=== PATIENT | male | born 1995 | race Caucasian/White ===

== ENCOUNTER 2018-08-27 16:20 | Observation (INO) ==
[2018-08-27] MEDS ORDERED: Sod Chloride 0.9% Inj 1,000 ML IV.SIG ONE (16:37)
--- NOTE | 2018-08-27 16:44 | ED ---
HPI General Chief Complaint: Overdose Stated Complaint: Poss OD Time Seen by Provider: 08/27/18 16:29 History of Present Illness HPI Narrative: Patient is a young male, was found intoxicated, unresponsive, he regained responsiveness after Narcan was given to him. As per patient he was using heroin denies any chills. He has history of diabetes insulin-dependent. Initial blood sugar is over than 300. Patient is intoxicated, answering questions, difficult to understand his speech. Patient complain of neck pain and headache has abrasion over his face most likely a day or 2 old. She denies suicidal ideations. Related Data Home Medications Medication Instructions Recorded Confirmed clonazepam [Klonopin] 2 mg PO TID 08/27/18 08/27/18 gabapentin 800 mg PO TID 08/27/18 08/27/18 insulin aspart U-100 [Novolog 8 unit SUBCUT DAILY 08/27/18 08/27/18 U-100 Insulin aspart] insulin glargine [Lantus U-100 30 unit SUBCUT DAILY 08/27/18 08/27/18 Insulin] Allergies Allergy/AdvReac Type Severity Reaction Status Date / Time No Known Allergies Allergy Verified 08/27/18 16:37 Review of Systems ROS: all other systems reviewed are negative Psychiatric Comments: Intoxicated poor historian. COUNTS INCLUDE 234 BEDS AT THE [facility] Social History Social History Substance History: Active Abuse Second Hand Smoke Exposure: Yes Smoking Status: Current every day smoker Tobacco Type: Cigarettes How Often Do You Have a Drink Containing Alcohol: 4 or more times a week Recent Travel in [facility] within the Last 8 Weeks: No Recent Out of Country Travel within the Last 8 Weeks: No Substance Abuse Detail Heroin: Substance Use Status: Early Remission Route Used Substance Abuse: Intravenously Immunization History Tetanus Immunization: Unable to Assess Exam Narrative Exam Narrative: GENERAL: Patient is a young male, unknown name and age at this time. SKIN: Focused skin assessment warm/dry. HEAD: Normocephalic. EYES: Pupils equal and round. No scleral icterus. No injection or drainage. ENT: No nasal bleeding or discharge. Mucous membranes pink and moist. NECK: Trachea midline. No JVD. CARDIOVASCULAR: Regular rate and rhythm. No murmur appreciated. RESPIRATORY: No accessory muscle use. Mild rhonchi on the right, minimally decreased breath sounds on left. GASTROINTESTINAL: Abdomen soft, non-tender, nondistended. Hepatic and splenic margins not palpable. MUSCULOSKELETAL: No obvious deformities. No clubbing. No cyanosis. No edema. NEUROLOGICAL: Awake and alert. No obvious cranial nerve deficits. Motor grossly within normal limits. Normal speech. PSYCHIATRIC: Appropriate mood and affect; insight and judgment normal. Course Initial Documented Vital Signs Pulse Rate 128 H 08/27/18 16:25 Respiratory Rate 21 08/27/18 16:25 Blood Pressure 128/67 08/27/18 16:25 Pulse Oximetry 85 L 08/27/18 16:25 Last Documented Vital Signs Temperature 98.1 F 08/27/18 23:42 Pulse Rate 114 H 08/28/18 00:00 Respiratory Rate 16 08/27/18 23:42 Blood Pressure 113/57 L 08/27/18 23:42 Pulse Oximetry 92 L 08/27/18 23:42 Sign Out Sign Out Data: Patient Sign Out occurred on 08/27/18 at 19:12. Patient's care was discussed, and care was transferred from Mendel Donaldson DO to Karsten Barbosa MD. Sign Out Comment: Brought to emergency room intoxicated, complaining about breathing, with blood sugar 348, labs and CAT scan reports pending. Case will be endorsed to oncoming physician. Last updated by Mendel Donaldson DO at 08/27/18 18:50 Post-Handoff Eval: This is a reported male in his 20s was brought in via EMS with altered mentation. The patient was reportedly intoxicated and responded to Narcan. According to the nurses working tonight, he was seen earlier this morning as well. The patient is a type I diabetic. His blood sugar was noted to be in the 300s. His beta hydroxybutyrate was also elevated. The patient is extremely nauseous. He has been given 5 units of regular insulin per the physician who signed out the patient to me. He is also been given IV fluids. He will be given a further 1 L of normal saline. [facility]. Patient will need to be admitted for blood sugar control and observation given his his second visit in 2 days. We are still currently awaiting a toxicology screen. CT brain and cervical spine were negative for acute process. The patient had leukocytosis on his blood work and the physician who I replace it started him on vancomycin. There is no obvious source of an infection at this point. The patient reportedly was intoxicated earlier this morning with his previous visit. He will be admitted to the [facility] hospitalist service. Case was discussed with Dr. Paredes. He will be placed under observation. Medical Decision Making MDM Narrative Medical decision making narrative: Blood work, urine analysis, CAT scan of the head and neck ordered, chest x-ray ordered. IV fluids, insulin given. Reevaluation is pending. Patient was signed out to oncoming physician for further evaluation and treatment. Medical Screen Exam Complete: Yes Emergency Medical Condition: Yes Differential Diagnosis Differential Diagnosis: Multiple drugs overdose prolonged suicidal ideations rule out DKA rule out intracranial hemorrhage. Lab Data Result diagrams: 08/27/18 17:10 08/27/18 17:10 Lab Results 08/27/18 08/27/18 08/27/18 Range/Units 16:34 17:10 17:10 WBC 19.6 H (4.0-11.0) th/mm3 RBC 4.15 L (4.50-5.90) mil/mm3 Hgb 13.2 (13.0-17.0) gm/dL Hct 39.3 (39.0-51.0) % MCV 94.7 (80.0-100.0) fL MCH 31.7 (27.0-34.0) pg MCHC 33.5 (32.0-36.0) % RDW 13.0 (11.6-17.2) % Plt Count 298 (150-450) th/mm3 MPV 8.0 (7.0-11.0) fL Neut % (Auto) 79.2 H (16.0-70.0) % Lymph % (Auto) 10.9 (9.0-44.0) % Foard % (Auto) 9.4 H (0.0-8.0) % Eos % (Auto) 0.1 (0.0-4.0) % Baso % (Auto) 0.4 (0.0-2.0) % Neut # (Auto) 15.5 H (1.8-7.7) th/mm3 Lymph # (Auto) 2.1 (1.0-4.8) th/mm3 Foard # (Auto) 1.8 H (0.0-0.9) th/mm3 Eos # (Auto) 0.0 (0.0-0.4) th/mm3 Baso # (Auto) 0.1 (0.0-0.2) th/mm3 WBC Differential . Differential Comment Auto diff final Puncture Site Patient Temperature O2 Saturation (90-100) % ABG pH (7.380-7.420) ABG pCO2 (38-42) mmHg ABG pO2 (61-120) mmHg ABG HCO3 (22-26) mmol/L ABG O2 Content (12.0-20.0) Vol % ABG Base Excess (-2-2) mmol/L ABG Methemoglobin (0-2) % Hussein Test Hemoglobin (12.0-16.0) G/DL Carboxyhemoglobin (0-4) % O2 Delivery Device Liter Flow L/M Critical Value Sodium 139 (136-145) meq/L Potassium 3.7 (3.5-5.1) meq/L Chloride 107 (98-107) meq/L Carbon Dioxide 22.5 (21.0-32.0) meq/L Anion Gap 10 (5-15) meq/L BUN 11 (7-18) mg/dL Creatinine 1.21 (0.60-1.30) mg/dL Estimated GFR 52 L (>89) mL/min POC Glucose 348 H (68-110) mg/dl Random Glucose 338 H (74-106) mg/dL Osmolality 309 H (275-295) mosm/kg Lactic Acid (0.4-2.0) mmol/L Calcium 7.9 L (8.5-10.1) mg/dL Total Bilirubin 0.9 (0.2-1.0) mg/dL AST 28 (15-37) U/L ALT 23 (12-78) U/L Alkaline Phosphatase 87 (45-117) U/L Total Protein 6.8 (6.4-8.2) g/dL Albumin 4.0 (3.4-5.0) g/dL Beta-Hydroxybutyric Acd (0.00-0.39) mmol/L Urine Color (Yellw/Straw) Urine Clarity (Clear) Urine pH (5.0-8.5) Ur Specific [place] (1.002-1.035) Urine Protein (Neg-Trace) mg/dL Urine Glucose (UA) (Negative) mg/dL Urine Ketones (Negative) mg/dL Urine Occult Blood (Negative) Urine Nitrate (Negative) Urine Bilirubin (Negative) Urine Urobilinogen (Less than 2) mg/dL Ur Leukocyte Esterase (Negative) Urine RBC (0-3) /hpf Ur Squamous Epith Cells (0-5) /hpf Urine Mucus (Occasional) /lpf Ur Microscopic Review Urine Opiates Screen (Neg) Ur Barbiturates Screen (Neg) Ur Amphetamines Screen (Neg) U Benzodiazepines Scrn (Neg) Urine Cocaine Screen (Neg) U Cannabinoids Screen (Neg) Serum Alcohol Less than 3 (0-5) mg/dL 08/27/18 08/27/18 08/27/18 Range/Units 17:10 17:10 19:10 WBC (4.0-11.0) th/mm3 RBC (4.50-5.90) mil/mm3 Hgb (13.0-17.0) gm/dL Hct (39.0-51.0) % MCV (80.0-100.0) fL MCH (27.0-34.0) pg MCHC (32.0-36.0) % RDW (11.6-17.2) % Plt Count (150-450) th/mm3 MPV (7.0-11.0) fL Neut % (Auto) (16.0-70.0) % Lymph % (Auto) (9.0-44.0) % Foard % (Auto) (0.0-8.0) % Eos % (Auto) (0.0-4.0) % Baso % (Auto) (0.0-2.0) % Neut # (Auto) (1.8-7.7) th/mm3 Lymph # (Auto) (1.0-4.8) th/mm3 Foard # (Auto) (0.0-0.9) th/mm3 Eos # (Auto) (0.0-0.4) th/mm3 Baso # (Auto) (0.0-0.2) th/mm3 WBC Differential Differential Comment Puncture Site Left radial Patient Temperature 98.6 O2 Saturation 87 L* (90-100) % ABG pH 7.28 L* (7.380-7.420) ABG pCO2 51 H* (38-42) mmHg ABG pO2 65 (61-120) mmHg ABG HCO3 23 (22-26) mmol/L ABG O2 Content 14.6 (12.0-20.0) Vol % ABG Base Excess -2.6 L (-2-2) mmol/L ABG Methemoglobin 0.5 (0-2) % Hussein Test Y Hemoglobin 11.9 L (12.0-16.0) G/DL Carboxyhemoglobin 3.1 (0-4) % O2 Delivery Device Nasal cannula Liter Flow 4.00 L/M Critical Value Yes Sodium (136-145) meq/L Potassium (3.5-5.1) meq/L Chloride (98-107) meq/L Carbon Dioxide (21.0-32.0) meq/L Anion Gap (5-15) meq/L BUN (7-18) mg/dL Creatinine (0.60-1.30) mg/dL Estimated GFR (>89) mL/min POC Glucose (68-110) mg/dl Random Glucose (74-106) mg/dL Osmolality (275-295) mosm/kg Lactic Acid 1.6 (0.4-2.0) mmol/L Calcium (8.5-10.1) mg/dL Total Bilirubin (0.2-1.0) mg/dL AST (15-37) U/L ALT (12-78) U/L Alkaline Phosphatase (45-117) U/L Total Protein (6.4-8.2) g/dL Albumin (3.4-5.0) g/dL Beta-Hydroxybutyric Acd 0.72 H (0.00-0.39) mmol/L Urine Color (Yellw/Straw) Urine Clarity (Clear) Urine pH (5.0-8.5) Ur Specific [place] (1.002-1.035) Urine Protein (Neg-Trace) mg/dL Urine Glucose (UA) (Negative) mg/dL Urine Ketones (Negative) mg/dL Urine Occult Blood (Negative) Urine Nitrate (Negative) Urine Bilirubin (Negative) Urine Urobilinogen (Less than 2) mg/dL Ur Leukocyte Esterase (Negative) Urine RBC (0-3) /hpf Ur Squamous Epith Cells (0-5) /hpf Urine Mucus (Occasional) /lpf Ur Microscopic Review Urine Opiates Screen (Neg) Ur Barbiturates Screen (Neg) Ur Amphetamines Screen (Neg) U Benzodiazepines Scrn (Neg) Urine Cocaine Screen (Neg) U Cannabinoids Screen (Neg) Serum Alcohol (0-5) mg/dL 08/27/18 08/27/18 08/27/18 Range/Units 20:41 21:35 21:35 WBC (4.0-11.0) th/mm3 RBC (4.50-5.90) mil/mm3 Hgb (13.0-17.0) gm/dL Hct (39.0-51.0) % MCV (80.0-100.0) fL MCH (27.0-34.0) pg MCHC (32.0-36.0) % RDW (11.6-17.2) % Plt Count (150-450) th/mm3 MPV (7.0-11.0) fL Neut % (Auto) (16.0-70.0) % Lymph % (Auto) (9.0-44.0) % Foard % (Auto) (0.0-8.0) % Eos % (Auto) (0.0-4.0) % Baso % (Auto) (0.0-2.0) % Neut # (Auto) (1.8-7.7) th/mm3 Lymph # (Auto) (1.0-4.8) th/mm3 Foard # (Auto) (0.0-0.9) th/mm3 Eos # (Auto) (0.0-0.4) th/mm3 Baso # (Auto) (0.0-0.2) th/mm3 WBC Differential Differential Comment Puncture Site Patient Temperature O2 Saturation (90-100) % ABG pH (7.380-7.420) ABG pCO2 (38-42) mmHg ABG pO2 (61-120) mmHg ABG HCO3 (22-26) mmol/L ABG O2 Content (12.0-20.0) Vol % ABG Base Excess (-2-2) mmol/L ABG Methemoglobin (0-2) % Hussein Test Hemoglobin (12.0-16.0) G/DL Carboxyhemoglobin (0-4) % O2 Delivery Device Liter Flow L/M Critical Value Sodium (136-145) meq/L Potassium (3.5-5.1) meq/L Chloride (98-107) meq/L Carbon Dioxide (21.0-32.0) meq/L Anion Gap (5-15) meq/L BUN (7-18) mg/dL Creatinine (0.60-1.30) mg/dL Estimated GFR (>89) mL/min POC Glucose 266 H (68-110) mg/dl Random Glucose (74-106) mg/dL Osmolality (275-295) mosm/kg Lactic Acid (0.4-2.0) mmol/L Calcium (8.5-10.1) mg/dL Total Bilirubin (0.2-1.0) mg/dL AST (15-37) U/L ALT (12-78) U/L Alkaline Phosphatase (45-117) U/L Total Protein (6.4-8.2) g/dL Albumin (3.4-5.0) g/dL Beta-Hydroxybutyric Acd (0.00-0.39) mmol/L Urine Color Straw (Yellw/Straw) Urine Clarity Clear (Clear) Urine pH 5.0 (5.0-8.5) Ur Specific [place] 1.010 (1.002-1.035) Urine Protein Negative (Neg-Trace) mg/dL Urine Glucose (UA) 500 or greater (Negative) mg/dL Urine Ketones 20 (Negative) mg/dL Urine Occult Blood Negative (Negative) Urine Nitrate Negative (Negative) Urine Bilirubin Negative (Negative) Urine Urobilinogen Less than 2 (Less than 2) mg/dL Ur Leukocyte Esterase Negative (Negative) Urine RBC Less than 1 (0-3) /hpf Ur Squamous Epith Cells <1 (0-5) /hpf Urine Mucus Few H (Occasional) /lpf Ur Microscopic Review Not Reportable Urine Opiates Screen Pos H (Neg) Ur Barbiturates Screen Neg (Neg) Ur Amphetamines Screen Neg (Neg) U Benzodiazepines Scrn Neg (Neg) Urine Cocaine Screen Pos H (Neg) U Cannabinoids Screen Neg (Neg) Serum Alcohol (0-5) mg/dL 08/27/18 08/28/18 Range/Units 22:23 00:16 WBC (4.0-11.0) th/mm3 RBC (4.50-5.90) mil/mm3 Hgb (13.0-17.0) gm/dL Hct (39.0-51.0) % MCV (80.0-100.0) fL MCH (27.0-34.0) pg MCHC (32.0-36.0) % RDW (11.6-17.2) % Plt Count (150-450) th/mm3 MPV (7.0-11.0) fL Neut % (Auto) (16.0-70.0) % Lymph % (Auto) (9.0-44.0) % Foard % (Auto) (0.0-8.0) % Eos % (Auto) (0.0-4.0) % Baso % (Auto) (0.0-2.0) % Neut # (Auto) (1.8-7.7) th/mm3 Lymph # (Auto) (1.0-4.8) th/mm3 Foard # (Auto) (0.0-0.9) th/mm3 Eos # (Auto) (0.0-0.4) th/mm3 Baso # (Auto) (0.0-0.2) th/mm3 WBC Differential Differential Comment Puncture Site Patient Temperature O2 Saturation (90-100) % ABG pH (7.380-7.420) ABG pCO2 (38-42) mmHg ABG pO2 (61-120) mmHg ABG HCO3 (22-26) mmol/L ABG O2 Content (12.0-20.0) Vol % ABG Base Excess (-2-2) mmol/L ABG Methemoglobin (0-2) % Hussein Test Hemoglobin (12.0-16.0) G/DL Carboxyhemoglobin (0-4) % O2 Delivery Device Liter Flow L/M Critical Value Sodium (136-145) meq/L Potassium (3.5-5.1) meq/L Chloride (98-107) meq/L Carbon Dioxide (21.0-32.0) meq/L Anion Gap (5-15) meq/L BUN (7-18) mg/dL Creatinine (0.60-1.30) mg/dL Estimated GFR (>89) mL/min POC Glucose 213 H 224 H (68-110) mg/dl Random Glucose (74-106) mg/dL Osmolality (275-295) mosm/kg Lactic Acid (0.4-2.0) mmol/L Calcium (8.5-10.1) mg/dL Total Bilirubin (0.2-1.0) mg/dL AST (15-37) U/L ALT (12-78) U/L Alkaline Phosphatase (45-117) U/L Total Protein (6.4-8.2) g/dL Albumin (3.4-5.0) g/dL Beta-Hydroxybutyric Acd (0.00-0.39) mmol/L Urine Color (Yellw/Straw) Urine Clarity (Clear) Urine pH (5.0-8.5) Ur Specific [place] (1.002-1.035) Urine Protein (Neg-Trace) mg/dL Urine Glucose (UA) (Negative) mg/dL Urine Ketones (Negative) mg/dL Urine Occult Blood (Negative) Urine Nitrate (Negative) Urine Bilirubin (Negative) Urine Urobilinogen (Less than 2) mg/dL Ur Leukocyte Esterase (Negative) Urine RBC (0-3) /hpf Ur Squamous Epith Cells (0-5) /hpf Urine Mucus (Occasional) /lpf Ur Microscopic Review Urine Opiates Screen (Neg) Ur Barbiturates Screen (Neg) Ur Amphetamines Screen (Neg) U Benzodiazepines Scrn (Neg) Urine Cocaine Screen (Neg) U Cannabinoids Screen (Neg) Serum Alcohol (0-5) mg/dL Imaging Data Radiologist's impression: Chest X-Ray 08/27/18 16:37 CONCLUSION: No definite acute abnormality is seen. Cervical Spine CT 08/27/18 16:40 CONCLUSION: Negative study. Cervical spine is intact. Head CT 08/27/18 16:40 CONCLUSION: No acute intracranial abnormality demonstrated. . Discharge Plan Discharge Disposition Patient Disposition: ED Admit(ED Internal Use Only) Discharge Order Discharge Orders: ED Use Only Admit Order (Routine); Ordered 08/27/18 Ordered By: Karsten Barbosa Discharge Details Diagnosis: DKA, type 1, Altered mental status, unspecified, Dehydration, Substance abuse Physicians Team ED Provider: Karsten Barbosa Primary Care Provider: UNKNOWN, Attending Provider: Alex Garcia Status ED Status: Left Department Discharge Information Discharge Date/Time: 08/27/18 22:45
--- NOTE | 2018-08-27 16:56 | XR ---
EXAM DATE: 08/27/2018 4:50 PM EST AGE/SEX: 89 years / Male INDICATIONS: Congestion CLINICAL DATA: This is the patient's initial encounter. Patient reports that signs and symptoms have been present for 1 day and indicates a pain score of Nonresponsive. MEDICAL/SURGICAL HISTORY: Non-responsive. Non-responsive. COMPARISON: No prior exams available for comparison. FINDINGS: A single AP view of the chest demonstrates the lungs to be symmetrically aerated without evidence of mass, infiltrate or effusion. The cardiomediastinal contours are unremarkable. Osseous structures a re intact. There are 2 focal densities projecting over the medial left upper quadrant. These are of uncertain etiology. It could be something on the patient. CONCLUSION: No definite acute abnormality is seen. Electronically signed by: Silver Luu MD 08/27/2018 4:55 PM EST
[2018-08-27 17:16] LABS: ABG Base Excess -2.6 mmol/L (-2-2); ABG PCO2 51 mmHg (38-42); ABG PO2 65 mmHg (61-120)
[2018-08-27 17:48] LABS: Baso # (Auto) 0.1 th/mm3 (0.0-0.2); Baso % (Auto) 0.4 % (0.0-2.0); Eos % (Auto) 0.1 % (0.0-4.0); Hematocrit 39.3 % (39.0-51.0); Hemoglobin 13.2 gm/dL (13.0-17.0); Lymph # (Auto) 2.1 th/mm3 (1.0-4.8); Lymph % (Auto) 10.9 % (9.0-44.0); Mean Corpuscular HGB Conc 33.5 % (32.0-36.0); Mean Corpuscular Hemoglobin 31.7 pg (27.0-34.0); Mean Corpuscular Volume 94.7 fL (80.0-100.0); Mono # (Auto) 1.8 th/mm3 (0.0-0.9); Mono % (Auto) 9.4 % (0.0-8.0); Neut # (Auto) 15.5 th/mm3 (1.8-7.7); Neut % (Auto) 79.2 % (16.0-70.0); Platelet Count 298 th/mm3 (150-450); Red Blood Count 4.15 mil/mm3 (4.50-5.90); White Blood Count 19.6 th/mm3 (4.0-11.0)
[2018-08-27] MEDS: Sod Chloride 0.9% Inj 1,000 ML IV.SIG SCH ×2 (17:48→20:08)
[2018-08-27 18:08] LABS: Anion Gap 10 meq/L (5-15); Blood Urea Nitrogen 11 mg/dL (7-18); Calcium 7.9 mg/dL (8.5-10.1); Carbon Dioxide 22.5 meq/L (21.0-32.0); Chloride 107 meq/L (98-107); Glomerular Filtration Rate 52 mL/min (>89); Glucose,Random 338 mg/dL (74-106); Potassium 3.7 meq/L (3.5-5.1); Sodium 139 meq/L (136-145)
[2018-08-27 18:10] LABS: Alanine Aminotransferase 23 U/L (12-78); Aspartate Aminotransferase 28 U/L (15-37)
[2018-08-27 18:12] LABS: Alkaline Phosphatase 87 U/L (45-117); Total Protein 6.8 g/dL (6.4-8.2)
[2018-08-27] MEDS ORDERED: Piperacil/Tazo 3.375 GM Premix 50 ML IV.SIG ONE (18:29)
[2018-08-27] MEDS ORDERED: Vancomycin Inj 1,000 MG in Sodium Chlor 0.9% Inj 250 ML IV.SIG ONE (18:29)
--- NOTE | 2018-08-27 18:51 | CT ---
EXAM DATE: 08/27/2018 6:39 PM EST AGE/SEX: 89 years / Male INDICATIONS: Found unresponsive. Possible heroin overdose. CLINICAL DATA: This is the patient's initial encounter. Patient reports that signs and symptoms have been present for 1 day and indicates a pain score of Nonresponsive. MEDICAL/SURGICAL HISTORY: Non-responsive. Non-responsive. RADIATION DOSE: 38.61 CTDI (mGy) COMPARISON: No prior exams available for comparison. TECHNIQUE: CT of the head without contrast. Using automated exposure control and adjustment of the mA and/or kV according to patient size, radiation dose was kept as low as reasonably achievable to ob tain optimal diagnostic quality images. DICOM format image data is available electronically for revi ew and comparison. FINDINGS: Cerebrum: The ventricles are normal for age. No evidence of midline shift, mass lesion, hemorrhage or acute infarction. No extraaxial fluid collections are seen. Posterior Fossa: The cerebellum and brainstem are intact. The 4th ventricle is midline. The cerebe llopontine angle is unremarkable. Extracranial: The visualized portion of the orbits is intact. Skull: The calvaria is intact. No evidence of skull fracture. CONCLUSION: No acute intracranial abnormality demonstrated. . Electronically signed by: Silver Carpenter MD 08/27/2018 6:49 PM EST
--- NOTE | 2018-08-27 18:53 | CT ---
EXAM DATE: 08/27/2018 6:42 PM EST AGE/SEX: 89 years / Male INDICATIONS: Found unresponsive. Possible heroin overdose. CLINICAL DATA: This is the patient's initial encounter. Patient reports that signs and symptoms have been present for 1 day and indicates a pain score of Nonresponsive. MEDICAL/SURGICAL HISTORY: Non-responsive. Non-responsive. RADIATION DOSE: 19.37 CTDI (mGy) COMPARISON: No prior exams available for comparison. TECHNIQUE: Contiguous axial images were obtained using helical multirow detector technique. The vol umetric data was post-processed with multiplanar reconstruction in oblique axial, sagittal, and coron al planes. Using automated exposure control and adjustment of the mA and/or kV according to patient s ize, radiation dose was kept as low as reasonably achievable to obtain optimal diagnostic quality lacho ges. DICOM format image data is available electronically for review and comparison. FINDINGS: Vertebrae: Normal vertebral body height. Alignment: Normal. No subluxation. C2-3: The bony spinal canal is normal in size. No evidence of disc bulge or herniation. The neural foramina are bilaterally patent. C3-4: The bony spinal canal is normal in size. No evidence of disc bulge or herniation. The neural foramina are bilaterally patent. C4-5: The bony spinal canal is normal in size. No evidence of disc bulge or herniation. The neural foramina are bilaterally patent. C5-6: The bony spinal canal is normal in size. No evidence of disc bulge or herniation. The neural foramina are bilaterally patent. C6-7: The bony spinal canal is normal in size. No evidence of disc bulge or herniation. The neural foramina are bilaterally patent. C7-T1: The bony spinal canal is normal in size. No evidence of disc bulge or herniation. The neura l foramina are bilaterally patent. CONCLUSION: Negative study. Cervical spine is intact. Electronically signed by: Silver Carpenter MD 08/27/2018 6:51 PM EST
[2018-08-27] MEDS ORDERED: Sod Chloride 0.9% Inj 1,000 ML IV.SIG SCH (19:30)
[2018-08-27 21:12] VITALS: RESP 16
[2018-08-27 21:52] LABS: Bilirubin,Urine Negative (Negative); Clarity,Urine Clear (Clear); Color,Urine Straw (Yellw/Straw); Glucose,Urine (UA) 500 or Greater mg/dL (Negative); Leukocyte Esterase,Urine Negative (Negative); Mucus,Urine Few /lpf (Occasional); Nitrite,Urine Negative (Negative); Squamous Epithelial Cell,Urine <1 /hpf (0-5)
[2018-08-27 21:57] LABS: Amphetamine Screen,Urine Neg (Neg); Barbiturate Screen,Urine Neg (Neg); Cannabinoid Screen,Urine Neg (Neg); Cocaine Screen,Urine Pos (Neg)
[2018-08-27 22:00] LABS: Opiate Screen,Urine Pos (Neg)
[2018-08-27] MEDS ORDERED: Acetaminophen 325 MG Tablet PO PRN (22:03)
[2018-08-27] MEDS ORDERED: Dextrose 50% in Water 50 ML Vial IV.PUSH PRN (22:06)
[2018-08-27] MEDS ORDERED: Haloperidol Inj 5 MG/ML Ampul IV.PUSH PRN (22:09)
[2018-08-27] MEDS ORDERED: LORazepam 1 MG Tablet PO PRN (22:09)
[2018-08-27] MEDS ORDERED: Sod Chloride 0.9% Inj 1,000 ML IV.CONT SCH (22:15)
--- NOTE | 2018-08-27 22:27 | P.HP ---
History of Present Illness Service: [facility]CP-hospitalist Primary Care Physician: UNKNOWN Chief Complaint: mental status changes History of Present Illness: 23 y/o white male who presents back to [facility] emergency room after being seen earlier today for intoxication actually came back with mental status changes responds to deep stimuli. Patient carries a long history of substance of abuse since the age of 19 polypharmacy and does carry history of diabetes was in the hospital in July for sepsis believed to be related to aspiration pneumonia, was also seen by psychiatry on previous admission and transferred to their service. Unsure as to the course when he was in their service .No history can be obtained from the patient at this time, workup in the emergency room blood sugar was approximately 300 white count of 19,000 toxicology shows positive cocaine positive opiates in his system, but unlike his last presentation of his blood pressure is stable and vital signs more or less are stable patient received insulin with fluid will continue IV fluid tonight recheck his sugars with Accu-Cheks and use high coverage NovoLog insulin when he is more alert he can go back on his regular doses consistent with mild DKA which I believe will reverse itself which is some IV fluids and insulin. Once patient is more alert may need to have psychiatry see him again, will place in [facility] protocol. - Diagnosis (1) Altered mental status, unspecified (2) Dehydration (3) Substance abuse (4) Substance abuse (5) DKA, type 1 (6) Leukocytosis Review of Systems unobtainable due to mental status PMFSH - History History Provided By: Patient - Medical History Medical History: Medical History (Last Reviewed 08/27/18 @ 22:21 by Cornell Paredes MD) Diabetes Surgical history unknown - Tobacco History Tobacco Use In Past 30 Days: Yes Smoking Status: Current every day smoker Tobacco Type: Cigarettes - Alcohol History How Often Do You Have a Drink Containing Alcohol: Never - Substance Use History Substance History: Active Abuse - Substance Use Type Heroin Status: Early Remission Route Used: Intravenously - Travel History Recent Travel in the [place] Within the Last 8 Weeks: No Recent Travel Out of the Country Within the Last 8 Weeks: No - Immunization History Tetanus Immunization: Unable to Assess Medications and Allergies Active Medications: Active Medications Acetaminophen (Tylenol) 650 mg PO Q4H PRN PRN Reason: Temp > 100.4 Dextrose (D50w Vial) 50 ml IV.PUSH UNSCH PRN PRN Reason: PER HYPOGLYCEMIA PROTOCOL Flumazenil (Romazecon Inj) 0.2 mg IV.PUSH Q1M PRN PRN Reason: OVERSEDATION Glucagon (Glucagon Inj) 1 mg OTHER PRN PRN PRN Reason: for Hypoglycemia Protocol Haloperidol Lactate (Haldol Inj) 1 mg IV.PUSH Q15M PRN PRN Reason: for severe agitation Sodium Chloride (Ns Inj) 1,000 mls @ 100 mls/hr IV.CONT .Q10H EMELIA Insulin Aspart (Novolog Insulin Correctional Sugar Inj) 0 unit SQ Q6HR EMELIA; Protocol Lorazepam (Ativan Inj) 1 mg IV.PUSH Q4H PRN PRN Reason: for CIWA 8-10 Lorazepam (Ativan Inj) 2 mg IV.PUSH Q15M PRN PRN Reason: for CIWA > 20 Lorazepam (Ativan Inj) 2 mg IV.PUSH Q1H PRN PRN Reason: for CIWA 15-20 Lorazepam (Ativan Inj) 2 mg IV.PUSH Q2H PRN PRN Reason: for CIWA 11-14 Lorazepam (Ativan) 1 mg PO Q4H PRN PRN Reason: for CIWA 8-10 Lorazepam (Ativan) 2 mg PO Q2H PRN PRN Reason: for CIWA 11-14 Ondansetron HCl (Zofran Inj) 4 mg IV.PUSH Q6H PRN PRN Reason: NAUSEA OR VOMITING Senna/Docusate Sodium (Michelle-Colace) 1 tab PO BID EMELIA Sodium Chloride (Ns Flush) 2 ml IV.FLUSH PRN PRN PRN Reason: FLUSH AFTER USING IV ACCESS Sodium Chloride (Ns Flush) 2 ml IV.FLUSH BID EMELIA Sodium Chloride (Ns Flush) 2 ml IV.FLUSH PRN PRN PRN Reason: FLUSH AFTER USING IV ACCESS Allergies Allergy/AdvReac Type Severity Reaction Status Date / Time No Known Allergies Allergy Verified 08/27/18 16:37 Home Medications Medication Instructions Recorded Confirmed Type clonazepam [Klonopin] 2 mg PO TID 08/27/18 08/27/18 History gabapentin 800 mg PO TID 08/27/18 08/27/18 History insulin aspart U-100 [Novolog 8 unit SUBCUT DAILY 08/27/18 08/27/18 History U-100 Insulin aspart] insulin glargine [Lantus U-100 30 unit SUBCUT DAILY 08/27/18 08/27/18 History Insulin] Exam Vital signs: Vital Signs 08/27/18 16:25 08/27/18 16:28 08/27/18 16:37 Pulse Rate 128 H 108 H Respiratory Rate 21 Blood Pressure 128/67 Pulse Oximetry 85 L 93 L 98 08/27/18 17:44 08/27/18 18:18 08/27/18 21:11 Pulse Rate 114 H 111 H 114 H Respiratory Rate 15 15 16 Blood Pressure 117/59 L 121/77 Pulse Oximetry 95 95 Intake & Output 08/27/18 08/27/18 08/28/18 06:59 18:59 06:59 Intake Total 4300 / 4300 Balance 4300 / 4300 Weight 61.235 kg Intake: IV 4300 / 4300 Zosyn 3.375 GM Premix 50 ML @ 50 / 50 100 mls/hr IV.SIG ONCE ONE Rx#: [id number] NS Inj 1,000 ML @ 2000 mls/hr 4000 / 4000 IV.SIG Q30M EMELIA Rx#:[id number] Vancomycin Inj 1,000 MG In NS 250 / 250 Inj 250 ML @ 250 mls/hr IV.SIG ONCE ONE Rx#:[id number] Narrative: GENERAL: disoriented to person place and time SKIN: Warm and dry. HEAD: Normocephalic. EYES: No scleral icterus. No injection or drainage. NECK: Supple, trachea midline. No JVD or lymphadenopathy. CARDIOVASCULAR: Regular rate and rhythm without murmurs, gallops, or rubs. RESPIRATORY: Breath sounds equal bilaterally. No accessory muscle use. GASTROINTESTINAL: Abdomen soft, non-tender, nondistended. MUSCULOSKELETAL: No cyanosis, or edema. BACK: Nontender without obvious deformity. No CVA tenderness. Results - Labs CBC & Chem 7: 08/27/18 17:10 08/27/18 17:10 Labs: Laboratory Results - last 24 hr 08/27/18 08/27/18 08/27/18 16:34 17:10 17:10 WBC 19.6 H RBC 4.15 L Hgb 13.2 Hct 39.3 MCV 94.7 MCH 31.7 MCHC 33.5 RDW 13.0 Plt Count 298 MPV 8.0 Neut % (Auto) 79.2 H Lymph % (Auto) 10.9 [place] % (Auto) 9.4 H Eos % (Auto) 0.1 Baso % (Auto) 0.4 Neut # (Auto) 15.5 H Lymph # (Auto) 2.1 [place] # (Auto) 1.8 H Eos # (Auto) 0.0 Baso # (Auto) 0.1 WBC Differential . Differential Comment Auto diff final Puncture Site Patient Temperature O2 Saturation ABG pH ABG pCO2 ABG pO2 ABG HCO3 ABG O2 Content ABG Base Excess ABG Methemoglobin Hussein Test Hemoglobin Carboxyhemoglobin O2 Delivery Device Liter Flow Critical Value Sodium 139 Potassium 3.7 Chloride 107 Carbon Dioxide 22.5 Anion Gap 10 BUN 11 Creatinine 1.21 Estimated GFR 52 L POC Glucose 348 H Random Glucose 338 H Osmolality 309 H Lactic Acid Calcium 7.9 L Total Bilirubin 0.9 AST 28 ALT 23 Alkaline Phosphatase 87 Total Protein 6.8 Albumin 4.0 Beta-Hydroxybutyric Acd Urine Color Urine Clarity Urine pH Ur Specific [place] Urine Protein Urine Glucose (UA) Urine Ketones Urine Occult Blood Urine Nitrate Urine Bilirubin Urine Urobilinogen Ur Leukocyte Esterase Urine RBC Ur Squamous Epith Cells Urine Mucus Ur Microscopic Review Urine Opiates Screen Ur Barbiturates Screen Ur Amphetamines Screen U Benzodiazepines Scrn Urine Cocaine Screen U Cannabinoids Screen Serum Alcohol Less than 3 08/27/18 08/27/18 08/27/18 17:10 17:10 19:10 WBC RBC Hgb Hct MCV MCH MCHC RDW Plt Count MPV Neut % (Auto) Lymph % (Auto) [place] % (Auto) Eos % (Auto) Baso % (Auto) Neut # (Auto) Lymph # (Auto) [place] # (Auto) Eos # (Auto) Baso # (Auto) WBC Differential Differential Comment Puncture Site Left radial Patient Temperature 98.6 O2 Saturation 87 L* ABG pH 7.28 L* ABG pCO2 51 H* ABG pO2 65 ABG HCO3 23 ABG O2 Content 14.6 ABG Base Excess -2.6 L ABG Methemoglobin 0.5 Hussein Test Y Hemoglobin 11.9 L Carboxyhemoglobin 3.1 O2 Delivery Device Nasal cannula Liter Flow 4.00 Critical Value Yes Sodium Potassium Chloride Carbon Dioxide Anion Gap BUN Creatinine Estimated GFR POC Glucose Random Glucose Osmolality Lactic Acid 1.6 Calcium Total Bilirubin AST ALT Alkaline Phosphatase Total Protein Albumin Beta-Hydroxybutyric Acd 0.72 H Urine Color Urine Clarity Urine pH Ur Specific [place] Urine Protein Urine Glucose (UA) Urine Ketones Urine Occult Blood Urine Nitrate Urine Bilirubin Urine Urobilinogen Ur Leukocyte Esterase Urine RBC Ur Squamous Epith Cells Urine Mucus Ur Microscopic Review Urine Opiates Screen Ur Barbiturates Screen Ur Amphetamines Screen U Benzodiazepines Scrn Urine Cocaine Screen U Cannabinoids Screen Serum Alcohol 08/27/18 08/27/18 08/27/18 20:41 21:35 21:35 WBC RBC Hgb Hct MCV MCH MCHC RDW Plt Count MPV Neut % (Auto) Lymph % (Auto) [place] % (Auto) Eos % (Auto) Baso % (Auto) Neut # (Auto) Lymph # (Auto) [place] # (Auto) Eos # (Auto) Baso # (Auto) WBC Differential Differential Comment Puncture Site Patient Temperature O2 Saturation ABG pH ABG pCO2 ABG pO2 ABG HCO3 ABG O2 Content ABG Base Excess ABG Methemoglobin Hussein Test Hemoglobin Carboxyhemoglobin O2 Delivery Device Liter Flow Critical Value Sodium Potassium Chloride Carbon Dioxide Anion Gap BUN Creatinine Estimated GFR POC Glucose 266 H Random Glucose Osmolality Lactic Acid Calcium Total Bilirubin AST ALT Alkaline Phosphatase Total Protein Albumin Beta-Hydroxybutyric Acd Urine Color Straw Urine Clarity Clear Urine pH 5.0 Ur Specific [place] 1.010 Urine Protein Negative Urine Glucose (UA) 500 or greater Urine Ketones 20 Urine Occult Blood Negative Urine Nitrate Negative Urine Bilirubin Negative Urine Urobilinogen Less than 2 Ur Leukocyte Esterase Negative Urine RBC Less than 1 Ur Squamous Epith Cells <1 Urine Mucus Few H Ur Microscopic Review Not Reportable Urine Opiates Screen Pos H Ur Barbiturates Screen Neg Ur Amphetamines Screen Neg U Benzodiazepines Scrn Neg Urine Cocaine Screen Pos H U Cannabinoids Screen Neg Serum Alcohol - Imaging Impressions Chest X-Ray 08/27/18 16:37 CONCLUSION: No definite acute abnormality is seen. Cervical Spine CT 08/27/18 16:40 CONCLUSION: Negative study. Cervical spine is intact. Head CT 08/27/18 16:40 CONCLUSION: No acute intracranial abnormality demonstrated. . Caprini VTE Risk Assessment Caprini VTE Risk Assessment: No/Low Risk (score <= 1) Caprini Risk Assessment Model: Point Value = 1 Point Value = 2 Point Value = 3 Point Value = 5 Age 41-60 Minor surgery BMI > 25 kg/m2 Swollen legs Varicose veins or History of unexplained or recurrent spontaneous Oral contraceptives or hormone replacement Sepsis (< 1 month) Serious lung disease, including pneumonia (< 1 month) Abnormal pulmonary function Acute myocardial infarction Congestive heart failure (< 1 month) History of inflammatory bowel disease Medical patient at bed rest Age 61-74 Arthroscopic surgery Major open surgery (> 45 min) Laparoscopic surgery (> 45 min) Malignancy Confined to bed (> 72 hours) Immobilizing plaster cast Central venous access Age >= 75 History of VTE Family history of VTE Factor V Leiden Prothrombin [id number] Lupus anticoagulant Anticardiolipin antibodies Elevated serum homocysteine Heparin-induced thrombocytopenia Other congenital or acquired thrombophilia Stroke (< 1 month) Elective arthroplasty Hip, pelvis, or leg fracture Acute spinal cord injury (< 1 month) Prophylaxis Regimen: Total Risk Factor Score Risk Level Prophylaxis Regimen 0-1 Low Early ambulation 2 Moderate Order ONE of the following: *Sequential Compression Device (SCD) *Heparin 5000 units SQ BID 3-4 Higher Order ONE of the following medications: *Heparin 5000 units SQ TID *Enoxaparin/Lovenox 40 mg SQ daily (WT < 150 kg, CrCl > 30 mL/min) *Enoxaparin/Lovenox 30 mg SQ daily (WT < 150 kg, CrCl > 10-29 mL/min) *Enoxaparin/Lovenox 30 mg SQ BID (WT < 150 kg, CrCl > 30 mL/min) AND/OR *Sequential Compression Device (SCD) 5 or more Highest Order ONE of the following medications: *Heparin 5000 units SQ TID (Preferred with Epidurals) *Enoxaparin/Lovenox 40 mg SQ daily (WT < 150 kg, CrCl > 30 mL/min) *Enoxaparin/Lovenox 30 mg SQ daily (WT < 150 kg, CrCl > 10-29 mL/min) *Enoxaparin/Lovenox 30 mg SQ BID (WT < 150 kg, CrCl > 30 mL/min) AND *Sequential Compression Device (SCD) Assessment and Plan - Assessment (1) Altered mental status, unspecified Code(s): R41.82 - Altered mental status, unspecified Status: Acute Plan: patient urine drug screen positive for cocaine and opiates ,etoh negative continue hydration follow up labs and clinical (2) Dehydration Code(s): E86.0 - Dehydration Status: Acute Plan: hydrate with IV fluid (3) Substance abuse Code(s): F19.10 - Other psychoactive substance abuse, uncomplicated Status: Acute Plan: when more alert consider PSY evaluation (4) Substance abuse Code(s): F19.10 - Other psychoactive substance abuse, uncomplicated Status: Acute (5) DKA, type 1 Code(s): E10.10 - Type 1 diabetes mellitus with ketoacidosis without coma Status: Acute Plan: mild dka responding to fluid ,use sliding scale insulin labs in am (6) Leukocytosis Code(s): D72.829 - Elevated white blood cell count, unspecified Status: Acute Plan: may respond to fluid no evidence of any infection,CT and chest xray negative blood cultures sent,hold antibiotic for now did receive antibiotic earlier today - Plan further plan as case develops Code Status: full
[2018-08-27 23:48] VITALS: BP 113/57; TEMP 98.1; O2SAT 92
[2018-08-28] MEDS ORDERED: Insulin NovoLOG Aspart Correctional Sugar Inj SQ SCH
[2018-08-28 01:53] VITALS: PULSE 114
[2018-08-28] MEDS ORDERED: Senna/Docusate Sodium 8.6/50 MG Tablet PO SCH (09:00)
== END 2018-08-28 04:46 | disposition left against medical advice (07) ==
LOC: NEPC 16:20 → NEDA 16:20 → EDBD 20:24 → NEPGCP 22:45
PROVIDERS: ADMIT Hospitalist; ATTEND Hospitalist
DX: E10.10 Type 1 diabetes mellitus with ketoacidosis without coma; E86.0 Dehydration; F19.10 Other psychoactive substance abuse, uncomplicated; Z79.4 Long term (current) use of insulin; F17.210 Nicotine dependence, cigarettes, uncomplicated; R41.82 Altered mental status, unspecified; D72.829 Elevated white blood cell count, unspecified

== ENCOUNTER 2018-09-19 08:33 | Inpatient (IN) ==
--- NOTE | 2018-09-19 09:15 | ED ---
HPI General Chief complaint: Skin/Abscess/Foreign Body Stated complaint: diabetic type 1/injection site infected Time Seen by Provider: 09/19/18 08:59 Source: patient Mode of arrival: ambulatory History of Present Illness HPI narrative: The patient is a 23-year-old male who presents to the ED with a 3 -day history of a developing skin infection. He is a type I diabetic and uses pen needles for insulin injections multiple times daily. 3 days ago, he noticed redness around an injection site on his right buttock, and since then has developed warmth, induration, and severe pain at the site. He is unable to bear weight on this part of his body. This has occurred one time in the past about 3 years ago and required drainage. He feels well otherwise and denies fevers, chills, body aches, dizziness, fatigue, nausea, vomiting, or pain anywhere else. He reports that his last HbA1c was 6.1 and his blood sugars have been well [place] [id number]. He denies any other medical history. Modifying Factors: None Associated Signs & Symptoms: 3 days of right buttocks lump Risk Factors: Diabetic Related Data Home Medications Medication Instructions Recorded Confirmed clonazepam [Klonopin] 2 mg PO TID 08/27/18 09/19/18 gabapentin 800 mg PO TID 08/27/18 09/19/18 insulin aspart U-100 [Novolog unit SUBCUT DIRECTED 08/27/18 08/27/18 U-100 Insulin aspart] insulin glargine [Lantus U-100 32 unit SUBCUT DAILY 08/27/18 09/19/18 Insulin] Allergies Allergy/AdvReac Type Severity Reaction Status Date / Time No Known Allergies Allergy Verified 08/27/18 16:37 Review of Systems ROS: all other systems reviewed are negative Constitutional Reports system reviewed and no additional complaints, except as docu [facility] Medical History Medical History Anxiety (Acute) Psychiatric disorder (Acute) Diabetes (Acute) Surgical history unknown (Acute) Surgical History Surgical History No history of previous surgery (Acute) Social History Social History Substance History: No History of Abuse Second Hand Smoke Exposure: Yes Smoking Status: Current every day smoker Tobacco Type: Cigarettes How Often Do You Have a Drink Containing Alcohol: Never Recent Travel in [facility] within the Last 8 Weeks: No Recent Out of Country Travel within the Last 8 Weeks: No Immunization History Tetanus Immunization: <5 Years Exam Narrative Exam Narrative: GENERAL: 23-year-old male who is well-developed, well-nourished, appears to be uncomfortable lying on his side SKIN: Warm and dry. There is a 5 cm area of redness over his right buttocks with underlying induration approximately the size of a softball. There is streaking and warmth noted at the site. The mass is not fluctuant and there is no drainage. HEAD: Atraumatic. Normocephalic. EYES: Pupils equal and round. No scleral icterus. No injection or drainage. NECK: Trachea midline. No JVD. CARDIOVASCULAR: Regular rate and rhythm. RESPIRATORY: No accessory muscle use. Clear to auscultation. Breath sounds equal bilaterally. GASTROINTESTINAL: Abdomen soft, non-tender, nondistended. Hepatic and splenic margins not palpable. MUSCULOSKELETAL: Extremities without clubbing, cyanosis, or edema. No obvious deformities. NEUROLOGICAL: Awake and alert. No obvious cranial nerve deficits. Motor grossly within normal limits. Five out of 5 muscle strength in the arms and legs. Normal speech. PSYCHIATRIC: Appropriate mood and affect; insight and judgment normal. Course Initial Documented Vital Signs Temperature 98.7 F 09/19/18 08:34 Pulse Rate 134 H 09/19/18 08:34 Respiratory Rate 16 09/19/18 08:34 Blood Pressure 132/79 09/19/18 08:34 Pulse Oximetry 99 09/19/18 08:34 Last Documented Vital Signs Temperature 98.7 F 09/19/18 08:34 Pulse Rate 91 H 09/19/18 08:46 Respiratory Rate 18 09/19/18 08:46 Blood Pressure 132/79 09/19/18 08:34 Pulse Oximetry 99 09/19/18 08:46 Medical Decision Making MDM Narrative Medical decision making narrative: There is significant cellulitis of the buttocks, not able to feel obvious fluctuance, and CAT scan was done for further evaluation for underlying deep abscesses. The CAT scan is revealing cellulitis and small 2 cm x 1 cm abscesses x2. They appear to be a bit deeper in the subcutaneous tissues. And patient has significant leukocytosis, IV antibiotics were initiated in the ER. Case is briefly discussed with general surgery who feels that these may not be true abscesses, but they did not feel that it requires general surgery drainage. Case was then discussed briefly with Dr. Olea of IR and he states that it can be drained by IR if necessary at [place]. At this point, case was discussed with Dr. Paredes and he agrees to admit the patient. Medical Screen Exam Complete: Yes Emergency Medical Condition: Yes Differential Diagnosis Differential Diagnosis: Cellulitis versus abscess versus sepsis Lab Data Lab results reviewed: Yes I reviewed the patient's lab results. Result diagrams: 09/19/18 09:35 09/19/18 09:35 Lab Results 09/19/18 09/19/18 Range/Units 09:35 09:35 CBC w Diff Auto diff final WBC 14.5 H (4.0-11.0) th/mm3 RBC 5.02 (4.50-5.90) mil/mm3 Hgb 15.5 (13.0-17.0) gm/dL Hct 46.2 (39.0-51.0) % MCV 92.0 (80.0-100.0) fL MCH 30.9 (27.0-34.0) pg MCHC 33.6 (32.0-36.0) % RDW 12.8 (11.6-17.2) % Plt Count 480 H D (150-450) th/mm3 MPV 7.9 (7.0-11.0) fL Neut % (Auto) 73.4 H (16.0-70.0) % Lymph % (Auto) 15.9 (9.0-44.0) % [place] % (Auto) 7.3 (0.0-8.0) % Eos % (Auto) 1.2 (0.0-4.0) % Baso % (Auto) 2.2 H (0.0-2.0) % Neut # (Auto) 10.6 H (1.8-7.7) th/mm3 Lymph # (Auto) 2.3 (1.0-4.8) th/mm3 [place] # (Auto) 1.1 H (0.0-0.9) th/mm3 Eos # (Auto) 0.2 (0.0-0.4) th/mm3 Baso # (Auto) 0.3 H (0.0-0.2) th/mm3 WBC Differential . Differential Comment . Sodium 141 (136-145) meq/L Potassium 3.9 (3.5-5.1) meq/L Chloride 106 (98-107) meq/L Carbon Dioxide 26.0 (21.0-32.0) meq/L Anion Gap 9 (5-15) meq/L BUN 14 (7-18) mg/dL Creatinine 0.90 (0.60-1.30) mg/dL Estimated GFR Greater than 89 (>89) mL/min Random Glucose 95 (74-106) mg/dL Calcium 9.1 (8.5-10.1) mg/dL Imaging Data Attestation: I personally reviewed and interpreted this imaging study as follows : Radiologist's impression: Pelvis CT 09/19/18 09:08 CONCLUSION: 1. Subcutaneous fat induration and inflammation in the right gluteal region with developing subcutaneous fluid collections characteristic of developing abscess. 2. No evidence of deep pelvic involvement. Discharge Plan Discharge Disposition Patient Disposition: ED Admit(ED Internal Use Only) Discharge Condition Condition: Stable Discharge Order Discharge Orders: ED Use Only Admit Order (Routine); Ordered 09/19/18 Ordered By: Og Benavidez Discharge Details Anticipated Discharge Date: 09/19/18 Diagnosis: Abscess of buttock, right Physicians Team ED Provider: Og Benavidez Primary Care Provider: Frank Matthews Rxs /Orders / Referrals /Forms Prescriptions: No Action insulin glargine [Lantus U-100 Insulin] 100 unit/mL Solution 32 unit SUBCUT DAILY RF: 0 gabapentin 800 mg Tablet 800 mg PO TID RF: 0 insulin aspart U-100 [Novolog U-100 Insulin aspart] 100 unit/mL Solution SUBCUT DIRECTED RF: 0 clonazepam [Klonopin] 2 mg Tablet 2 mg PO TID RF: 0 Discharge Interventions Interventions: Vital Signs Last Done: 09/19/18 08:34 Status ED Status: Admitted Patient
[2018-09-19 10:04] LABS: Baso # (Auto) 0.3 th/mm3 (0.0-0.2); Baso % (Auto) 2.2 % (0.0-2.0); Chloride 106 meq/L (98-107); Eos # (Auto) 0.2 th/mm3 (0.0-0.4); Eos % (Auto) 1.2 % (0.0-4.0); Hematocrit 46.2 % (39.0-51.0); Hemoglobin 15.5 gm/dL (13.0-17.0); Lymph # (Auto) 2.3 th/mm3 (1.0-4.8); Lymph % (Auto) 15.9 % (9.0-44.0); Mean Corpuscular HGB Conc 33.6 % (32.0-36.0); Mean Corpuscular Hemoglobin 30.9 pg (27.0-34.0); Mean Platelet Volume 7.9 fL (7.0-11.0); Mono # (Auto) 1.1 th/mm3 (0.0-0.9); Mono % (Auto) 7.3 % (0.0-8.0); Neut # (Auto) 10.6 th/mm3 (1.8-7.7); Neut % (Auto) 73.4 % (16.0-70.0); Platelet Count 480 th/mm3 (150-450); Potassium 3.9 meq/L (3.5-5.1); Red Blood Count 5.02 mil/mm3 (4.50-5.90); Red Cell Distribution Width 12.8 % (11.6-17.2); Sodium 141 meq/L (136-145); White Blood Count 14.5 th/mm3 (4.0-11.0)
[2018-09-19 10:06] LABS: Calcium 9.1 mg/dL (8.5-10.1)
[2018-09-19 10:07] LABS: Anion Gap 9 meq/L (5-15); Blood Urea Nitrogen 14 mg/dL (7-18); Glucose,Random 95 mg/dL (74-106)
[2018-09-19 10:10] LABS: Glomerular Filtration Rate Greater Than 89 mL/min (>89)
--- NOTE | 2018-09-19 10:52 | CT ---
EXAM DATE: 09/19/2018 10:35 AM EST AGE/SEX: 23 years / Male INDICATIONS: Right hip pain at insulin injection site CLINICAL DATA: This is the patient's initial encounter. Patient reports that signs and symptoms have been present for 3 days and indicates a pain score of 7/10. MEDICAL/SURGICAL HISTORY: Diabetes. None. RADIATION DOSE: 8.60 CTDI (mGy) COMPARISON: [facility], CT ABDOMEN & PELVIS W CONTRAST, 04/16/2017. . TECHNIQUE: Multiple contiguous helical axial images were obtained through pelvis following bolus inf usion of 95ML ml Omnipaque 350 (iohexol) nonionic water-soluble contrast as a single exam dose. Im ages were obtained using multiple row detector helical technique. . Using automated exposure control and adjustment of the mA and/or kV according to patient size, radiation dose was kept as low as reaso nably achievable to obtain optimal diagnostic quality images. DICOM format image data is available e lectronically for review and comparison. FINDINGS: Bowel/Mesentery: The bowel loops are grossly unremarkable. The sigmoid colon has a normal configura tion. Bladder: Contours are smooth. No filling defects are seen on the delayed images. Retroperitoneum: No evidence of deep pelvic adenopathy. Reproductive Organs: No abnormal masses or calcifications seen. Inguinal: The inguinal region is unremarkable without evidence of adenopathy. Bony Structures: Unremarkable. Free Fluid: None seen. Soft tissues: Subcutaneous fat induration is identified in the right gluteal region. There are devel oping fluid collections measuring 2.4 x 1.2 cm and 2 x 1.3 cm in size. CONCLUSION: 1. Subcutaneous fat induration and inflammation in the right gluteal region with developing subcutan eous fluid collections characteristic of developing abscess. 2. No evidence of deep pelvic involvement. Electronically signed by: Kyle Newton MD Board Certified Radiologist 09/19/2018 10:51 AM EST
[2018-09-19] MEDS ORDERED: Piperacil/Tazo 3.375 GM Premix 3.375 GM/50 ML PIGGYBACK IV.SIG ONE (11:42)
[2018-09-19] MEDS ORDERED: Piperacil/Tazo 3.375 GM Premix 3.375 GM/50 ML PIGGYBACK IV.SIG SCH (13:15)
[2018-09-19] MEDS ORDERED: Dextrose 50% in Water 50 ML Vial IV.PUSH PRN (13:18)
[2018-09-19] MEDS ORDERED: Acetaminophen 325 MG Tablet PO PRN (13:19)
--- NOTE | 2018-09-19 13:36 | P.HP ---
History of Present Illness Service: CP hospitalist Primary Care Physician: Frank Matthews MD Chief Complaint: painful lump rt prlvic area site of insulin injections History of Present Illness: HPI narrative: The patient is a 23-year-old male who presents to the ED with a 3 -day history of a developing skin infection. He is a type I diabetic and uses pen needles for insulin injections multiple times daily. 3 days ago, he noticed redness around an injection site on his right buttock, and since then has developed warmth, induration, and severe pain at the site. He is unable to bear weight on this part of his body. This has occurred one time in the past about 3 years ago and required drainage. He feels well otherwise and denies fevers, chills, body aches, dizziness, fatigue, nausea, vomiting, or pain anywhere else. He reports that his last HbA1c was 6.1 and his blood sugars have been well [place] [address]. He denies any other medical history. On exam has painful lumps rt pelvic buttocks area ,i do not believe it needs surgical drainage at this time ,i did discuss with general surgery and if it does not respond to antibiotics will call them . Patient does have slight increase wbc count and cultures taken. - Diagnosis (1) Cellulitis and abscess of buttock (2) Abscess of buttock, right (3) DKA, type 1 (4) Leukocytosis Inpatient Certification: I certify that the inpatient services were ordered in accordance with Medicare regulations governing the order. This includes certification that hospital inpatient services are reasonable and necessary and in the case of services not specified as inpatient-only under 42 CFR 419.22(n), that they are appropriately provided as inpatient services in accordance to with the 2-midnight benchmark under 43 CFR 412.3(e) Estimated Total Length of Stay (Days): 3 Plans for Post Hospital Care: Home Review of Systems All other systems reviewed negative except as stated in HPI PMFSH - History History Provided By: Patient - Medical History Medical History: Medical History (Last Reviewed 09/19/18 @ 13:29 by Cornell Paredes MD) Anxiety Psychiatric disorder Diabetes Surgical history unknown - Surgical History Surgical History: Surgical History (Last Reviewed 09/19/18 @ 13:29 by Cornell Paredes MD) No history of previous surgery - Tobacco History Second Hand Smoke Exposure: Yes Tobacco Use In Past 30 Days: Yes Smoking Status: Current every day smoker Tobacco Type: Cigarettes - Alcohol History How Often Do You Have a Drink Containing Alcohol: Never - Substance Use History Substance History: No History of Abuse - Travel History Recent Travel in the [place] Within the Last 8 Weeks: No Recent Travel Out of the Country Within the Last 8 Weeks: No - Immunization History Tetanus Immunization: <5 Years Medications and Allergies Active Medications: Active Medications Acetaminophen (Tylenol) 650 mg PO Q4H PRN PRN Reason: Temp > 100.4 Hydrocodone Bitart/Acetaminophen ([place] 5/325) 1 tab PO Q6H PRN PRN Reason: PAIN SCALE 4 TO 6 MODERATE Clonazepam (Klonopin) 2 mg PO TID EMELIA Dextrose (D50w Vial) 50 ml IV.PUSH UNSCH PRN PRN Reason: PER HYPOGLYCEMIA PROTOCOL Gabapentin (Neurontin) 800 mg PO TID EMELIA Glucagon (Glucagon Inj) 1 mg OTHER PRN PRN PRN Reason: for Hypoglycemia Protocol Piperacillin/Tazobactam/Dextrose (Zosyn 3.375 Gm Premix) 3.375 gm in 50 mls @ 100 mls/hr IV.SIG Q6H EMELIA Insulin Aspart (Novolog Insulin Correctional Sugar Inj) 0 unit SQ Q6HR EMELIA; Protocol Non-Formulary Medication (Insulin Glargine) 32 unit SQ DAILY EMELIA Ondansetron HCl (Zofran Inj) 4 mg IV.PUSH Q6H PRN PRN Reason: NAUSEA OR VOMITING Senna/Docusate Sodium (Michelle-Colace) 1 tab PO BID EMELIA Sodium Chloride (Ns Flush) 2 ml IV.FLUSH PRN PRN PRN Reason: FLUSH AFTER USING IV ACCESS Sodium Chloride (Ns Flush) 2 ml IV.FLUSH BID [facility] Allergies Allergy/AdvReac Type Severity Reaction Status Date / Time No Known Allergies Allergy Verified 08/27/18 16:37 Home Medications Medication Instructions Recorded Confirmed Type clonazepam [Klonopin] 2 mg PO TID 08/27/18 09/19/18 History gabapentin 800 mg PO TID 08/27/18 09/19/18 History insulin aspart U-100 [Novolog unit SUBCUT DIRECTED 08/27/18 08/27/18 History U-100 Insulin aspart] insulin glargine [Lantus U-100 32 unit SUBCUT DAILY 08/27/18 09/19/18 History Insulin] Exam Vital signs: Vital Signs 09/19/18 08:34 09/19/18 08:46 Temperature 98.7 F Pulse Rate 134 H 91 H Respiratory Rate 16 18 Blood Pressure 132/79 Pulse Oximetry 99 99 Intake & Output 09/18/18 09/19/18 09/19/18 18:59 06:59 18:59 Intake Total 3 / 3 Balance 3 / 3 Weight 67.8 kg Intake: IV 3 / 3 Zosyn 3.375 GM Premix 3.375 gm 3 / 3 In 50 ml @ 100 mls/hr IV.SIG ONCE ONE Rx#:[id number] Narrative: GENERAL: SKIN: Warm and dry. 2by 1 2 by 1 fluid filled areas rt buttocks HEAD: Normocephalic. EYES: No scleral icterus. No injection or drainage. NECK: Supple, trachea midline. No JVD or lymphadenopathy. CARDIOVASCULAR: Regular rate and rhythm without murmurs, gallops, or rubs. RESPIRATORY: Breath sounds equal bilaterally. No accessory muscle use. GASTROINTESTINAL: Abdomen soft, non-tender, nondistended. MUSCULOSKELETAL: No cyanosis, or edema. BACK: Nontender without obvious deformity. No CVA tenderness. Results - Labs CBC & Chem 7: 09/19/18 09:35 09/19/18 09:35 Labs: Laboratory Results - last 24 hr 09/19/18 09/19/18 09:35 09:35 CBC w Diff Auto diff final WBC 14.5 H RBC 5.02 Hgb 15.5 Hct 46.2 MCV 92.0 MCH 30.9 MCHC 33.6 RDW 12.8 Plt Count 480 H D MPV 7.9 Neut % (Auto) 73.4 H Lymph % (Auto) 15.9 [place] % (Auto) 7.3 Eos % (Auto) 1.2 Baso % (Auto) 2.2 H Neut # (Auto) 10.6 H Lymph # (Auto) 2.3 [place] # (Auto) 1.1 H Eos # (Auto) 0.2 Baso # (Auto) 0.3 H WBC Differential . Differential Comment . Sodium 141 Potassium 3.9 Chloride 106 Carbon Dioxide 26.0 Anion Gap 9 BUN 14 Creatinine 0.90 Estimated GFR Greater than 89 Random Glucose 95 Calcium 9.1 - Imaging Impressions Pelvis CT 09/19/18 09:08 CONCLUSION: 1. Subcutaneous fat induration and inflammation in the right gluteal region with developing subcutaneous fluid collections characteristic of developing abscess. 2. No evidence of deep pelvic involvement. Caprini VTE Risk Assessment Caprini VTE Risk Assessment: No/Low Risk (score <= 1) Caprini Risk Assessment Model: Point Value = 1 Point Value = 2 Point Value = 3 Point Value = 5 Age 41-60 Minor surgery BMI > 25 kg/m2 Swollen legs Varicose veins or History of unexplained or recurrent spontaneous Oral contraceptives or hormone replacement Sepsis (< 1 month) Serious lung disease, including pneumonia (< 1 month) Abnormal pulmonary function Acute myocardial infarction Congestive heart failure (< 1 month) History of inflammatory bowel disease Medical patient at bed rest Age 61-74 Arthroscopic surgery Major open surgery (> 45 min) Laparoscopic surgery (> 45 min) Malignancy Confined to bed (> 72 hours) Immobilizing plaster cast Central venous access Age >= 75 History of VTE Family history of VTE Factor V Leiden Prothrombin [id number] Lupus anticoagulant Anticardiolipin antibodies Elevated serum homocysteine Heparin-induced thrombocytopenia Other congenital or acquired thrombophilia Stroke (< 1 month) Elective arthroplasty Hip, pelvis, or leg fracture Acute spinal cord injury (< 1 month) Prophylaxis Regimen: Total Risk Factor Score Risk Level Prophylaxis Regimen 0-1 Low Early ambulation 2 Moderate Order ONE of the following: *Sequential Compression Device (SCD) *Heparin 5000 units SQ BID 3-4 Higher Order ONE of the following medications: *Heparin 5000 units SQ TID *Enoxaparin/Lovenox 40 mg SQ daily (WT < 150 kg, CrCl > 30 mL/min) *Enoxaparin/Lovenox 30 mg SQ daily (WT < 150 kg, CrCl > 10-29 mL/min) *Enoxaparin/Lovenox 30 mg SQ BID (WT < 150 kg, CrCl > 30 mL/min) AND/OR *Sequential Compression Device (SCD) 5 or more Highest Order ONE of the following medications: *Heparin 5000 units SQ TID (Preferred with Epidurals) *Enoxaparin/Lovenox 40 mg SQ daily (WT < 150 kg, CrCl > 30 mL/min) *Enoxaparin/Lovenox 30 mg SQ daily (WT < 150 kg, CrCl > 10-29 mL/min) *Enoxaparin/Lovenox 30 mg SQ BID (WT < 150 kg, CrCl > 30 mL/min) AND *Sequential Compression Device (SCD) Assessment and Plan - Assessment (1) Cellulitis and abscess of buttock Code(s): L02.31 - Cutaneous abscess of buttock; L03.317 - Cellulitis of buttock Status: Acute Plan: will treat IV zoysn q 6h follow clinically recheck wbc count (2) Abscess of buttock, right Code(s): L02.31 - Cutaneous abscess of buttock Status: Acute Plan: as above hold off any surgery pending IV treatment (3) DKA, type 1 Code(s): E10.10 - Type 1 diabetes mellitus with ketoacidosis without coma Status: Acute Plan: continue home med and sliding scale (4) Leukocytosis Code(s): D72.829 - Elevated white blood cell count, unspecified Status: Acute Plan: will follow labs - Plan further plan as case develops Code Status: full Discussed Condition With: patient and family
[2018-09-19] MEDS: HYDROmorphone PF Inj 0.5 MG/0.5 ML Syringe IV.PUSH PRN ×3 (13:56→21:26)
[2018-09-19] MEDS: Gabapentin 400 MG Capsule PO SCH (17:01)
[2018-09-19] MEDS: clonazePAM 1 MG Tablet PO SCH (17:02)
[2018-09-19] MEDS: Insulin NovoLOG Aspart Correctional Sugar Inj SQ SCH (17:02)
[2018-09-19] MEDS: Piperacil/Tazo 3.375 GM Premix 3.375 GM/50 ML PIGGYBACK IV.SIG SCH (17:27)
[2018-09-19] MEDS: Senna/Docusate Sodium 8.6/50 MG Tablet PO SCH (21:22)
[2018-09-20] MEDS: Insulin NovoLOG Aspart Correctional Sugar Inj SQ SCH ×5 (00:13→23:36)
[2018-09-20] MEDS: Piperacil/Tazo 3.375 GM Premix 3.375 GM/50 ML PIGGYBACK IV.SIG SCH ×5 (00:13→23:28)
[2018-09-20] MEDS: HYDROmorphone PF Inj 0.5 MG/0.5 ML Syringe IV.PUSH PRN ×3 (00:24→09:11)
[2018-09-20] MEDS: Insulin Detemir Inj 1,000 UNIT/10 ML Vial SQ SCH (08:30)
[2018-09-20] MEDS: clonazePAM 1 MG Tablet PO SCH ×3 (08:30→17:32)
[2018-09-20] MEDS: Gabapentin 400 MG Capsule PO SCH ×3 (08:30→17:32)
[2018-09-20 10:15] LABS: Chloride 99 meq/L (98-107); Potassium 3.8 meq/L (3.5-5.1); Sodium 134 meq/L (136-145)
[2018-09-20 10:18] LABS: Anion Gap 8 meq/L (5-15); Calcium 8.3 mg/dL (8.5-10.1); Carbon Dioxide 26.8 meq/L (21.0-32.0)
[2018-09-20 10:21] LABS: Baso # (Auto) 0.1 th/mm3 (0.0-0.2); Baso % (Auto) 0.3 % (0.0-2.0); Eos # (Auto) 0.2 th/mm3 (0.0-0.4); Eos % (Auto) 0.9 % (0.0-4.0); Lymph # (Auto) 2.1 th/mm3 (1.0-4.8); Lymph % (Auto) 10.8 % (9.0-44.0); Mean Corpuscular HGB Conc 32.9 % (32.0-36.0); Mean Corpuscular Hemoglobin 30.4 pg (27.0-34.0); Mean Corpuscular Volume 92.4 fL (80.0-100.0); Mean Platelet Volume 8.1 fL (7.0-11.0); Mono # (Auto) 1.3 th/mm3 (0.0-0.9); Mono % (Auto) 6.7 % (0.0-8.0); Neut # (Auto) 15.3 th/mm3 (1.8-7.7); Neut % (Auto) 81.3 % (16.0-70.0); Platelet Count 412 th/mm3 (150-450); Red Blood Count 4.22 mil/mm3 (4.50-5.90); Red Cell Distribution Width 12.6 % (11.6-17.2)
[2018-09-20 10:30] LABS: Blood Urea Nitrogen 10 mg/dL (7-18); Glomerular Filtration Rate Greater Than 89 mL/min (>89); Glucose,Random 261 mg/dL (74-106)
[2018-09-20] MEDS ORDERED: HYDROmorphone PF Inj 0.5 MG/0.5 ML Syringe IV.PUSH PRN (10:38)
[2018-09-20 10:40] LABS: Hemoglobin 12.8 gm/dL (13.0-17.0)
--- NOTE | 2018-09-20 10:50 | P.PN ---
Subjective Interval history: Patient admitted with cellulitis vs abscess rt buttocks ,WBC count increased today ,and area looks to be more localizing and may be able to be drained by interventional radiology will consult also consult ID to assist in antibiotics , patient pain level has increased and mild touching of area severe pain adjust pain meds. Physical Exam Vital signs: Vital Signs 09/19/18 12:30 09/19/18 15:13 09/19/18 16:00 Temperature 98 F 96.8 F L Pulse Rate 103 H 105 H Respiratory Rate 20 20 20 Blood Pressure 124/80 125/72 Pulse Oximetry 98 97 09/19/18 16:01 09/19/18 18:51 09/19/18 20:00 Temperature 97.0 F L Pulse Rate 115 H Respiratory Rate 20 20 18 Blood Pressure 133/82 Pulse Oximetry 98 09/20/18 00:00 09/20/18 08:00 Temperature 97.2 F L 98.5 F Pulse Rate 108 H 112 H Respiratory Rate 18 18 Blood Pressure 111/67 114/66 Pulse Oximetry 98 96 Intake & Output 09/19/18 09/20/18 09/20/18 18:59 06:59 18:59 Intake Total 3260 / 3260 580 / 580 Balance 3260 / 3260 580 / 580 Weight 64.2 kg 65.3 kg Intake: IV 100 / 100 100 / 100 Zosyn 3.375 GM Premix 3.375 gm 100 / 100 100 / 100 In 50 ml @ 100 mls/hr IV.SIG Q6H EMELIA Rx#:[id number] Oral 3160 / 3160 480 / 480 Other: # Voids 3 3 # Bowel Movements 1 Weight On Admission 64.2 kg Narrative: GENERAL: SKIN: Warm and dry. more formed area of cellulitis rt buttocks red HEAD: Normocephalic. EYES: No scleral icterus. No injection or drainage. NECK: Supple, trachea midline. No JVD or lymphadenopathy. CARDIOVASCULAR: Regular rate and rhythm without murmurs, gallops, or rubs. RESPIRATORY: Breath sounds equal bilaterally. No accessory muscle use. GASTROINTESTINAL: Abdomen soft, non-tender, nondistended. MUSCULOSKELETAL: No cyanosis, or edema. BACK: Nontender without obvious deformity. No CVA tenderness. Results - Labs CBC & Chem 7: 09/20/18 09:54 09/20/18 08:54 Laboratory Results - last 24 hr 09/19/18 09/20/18 09/20/18 16:40 00:11 05:13 CBC w Diff WBC RBC Hgb Hct MCV MCH MCHC RDW Plt Count MPV Neut % (Auto) Lymph % (Auto) [place] % (Auto) Eos % (Auto) Baso % (Auto) Neut # (Auto) Lymph # (Auto) [place] # (Auto) Eos # (Auto) Baso # (Auto) WBC Differential Differential Comment Sodium Potassium Chloride Carbon Dioxide Anion Gap BUN Creatinine Estimated GFR POC Glucose 137 H 359 H 121 H Random Glucose Calcium 09/20/18 09/20/18 08:54 09:54 CBC w Diff Auto diff final WBC 19.0 H RBC 4.22 L Hgb 12.8 L D Hct 39.0 MCV 92.4 MCH 30.4 MCHC 32.9 RDW 12.6 Plt Count 412 MPV 8.1 Neut % (Auto) 81.3 H Lymph % (Auto) 10.8 [place] % (Auto) 6.7 Eos % (Auto) 0.9 Baso % (Auto) 0.3 Neut # (Auto) 15.3 H Lymph # (Auto) 2.1 [place] # (Auto) 1.3 H Eos # (Auto) 0.2 Baso # (Auto) 0.1 WBC Differential . Differential Comment . Sodium 134 L Potassium 3.8 Chloride 99 Carbon Dioxide 26.8 Anion Gap 8 BUN 10 Creatinine 0.93 Estimated GFR Greater than 89 POC Glucose Random Glucose 261 H D Calcium 8.3 L D - Imaging Impressions Pelvis CT 09/19/18 09:08 CONCLUSION: 1. Subcutaneous fat induration and inflammation in the right gluteal region with developing subcutaneous fluid collections characteristic of developing abscess. 2. No evidence of deep pelvic involvement. Assessment and Plan - Assessment (1) Cellulitis and abscess of buttock Code(s): L02.31 - Cutaneous abscess of buttock; L03.317 - Cellulitis of buttock Status: Acute Plan: will treat IV zoysn q 6h WBC count increased will ask ID to see and will consult interventional radiology if they can drain area ,yesterday appearance did look more diffuse. (2) Abscess of buttock, right Code(s): L02.31 - Cutaneous abscess of buttock Status: Acute Plan: will ask interventional radiology for evaluation (3) DKA, type 1 Code(s): E10.10 - Type 1 diabetes mellitus with ketoacidosis without coma Status: Acute Plan: continue home med and sliding scale (4) Leukocytosis Code(s): D72.829 - Elevated white blood cell count, unspecified Status: Acute Plan: will follow labs - Plan further plan as case develops
[2018-09-20] MEDS: Senna/Docusate Sodium 8.6/50 MG Tablet PO SCH ×2 (11:51→22:24)
[2018-09-20] MEDS ORDERED: Vancomycin Consult Pharmacy OTHER PRN (16:21)
[2018-09-20] MEDS: Vancomycin Inj 1,000 MG in Sodium Chlor 0.9% Inj 250 ML IV.SIG SCH (16:59)
[2018-09-20] MEDS ORDERED: Ketorolac 10 MG Tablet PO ONE (17:45)
[2018-09-20] MEDS: HYDROmorphone PF Inj 1 MG/ML Ampul IV.PUSH PRN ×2 (18:21→22:24)
--- NOTE | 2018-09-20 22:34 | P.CONID ---
History of Present Illness Service: ID Consult date: 09/20/18 Requesting Physician: Cornell Paredes Reason for Consult: R buttock abscess, bacteremia Primary Care Provider: Frank Matthews MD Chief Complaint: painful lump rt prlvic area site of insulin injections History of Present Illness: 23 yo male with IDDM developped pain, redness swellling in R buttock aw his indsulin injection site it was graduallly worsening over several days and he presented with above symptoa as well as fever, chills and high BS CT 09/19/18 showed .Subcutaneous fat induration and inflammation in the right gluteal region with developing subcutaneous fluid collections characteristic of developing abscess Blood clx + 1/4 bottles for GPC Review of Systems All other systems reviewed negative except as stated in HPI PMFSH - History History Provided By: Patient, Family Member - Medical History Medical History: Medical History (Last Reviewed 09/20/18 @ 22:29 by Zehra Pacheco MD) Anxiety Psychiatric disorder Diabetes Surgical history unknown - Surgical History Surgical History: Surgical History (Last Reviewed 09/20/18 @ 22:29 by Zehra Pacheco MD) No history of previous surgery - Family History Family History: Family History (Last Updated 09/20/18 @ 22:30 by Zehra Pacheco MD) Other No pertinent family history - Social History I have reviewed the patient's Social History: Yes - Tobacco History Second Hand Smoke Exposure: No Tobacco Use In Past 30 Days: Yes Smoking Status: Never smoker Tobacco Type: Cigarettes - Alcohol History How Often Do You Have a Drink Containing Alcohol: Never - Substance Use History Substance History: No History of Abuse - Travel History Recent Travel in the [place] Within the Last 8 Weeks: No Recent Travel Out of the Country Within the Last 8 Weeks: No - Immunization History Tetanus Immunization: Unsure Hx Influenza Vaccine This Season: Yes Medications and Allergies Active Medications: Active Medications Acetaminophen (Tylenol) 650 mg PO Q4H PRN PRN Reason: Temp > 100.4 Hydrocodone Bitart/Acetaminophen ([place] 7.5/325) 1 tab PO Q4H PRN PRN Reason: PAIN SCALE 6 TO 10 Last Admin: 09/20/18 15:06 Dose: 1 tab Clonazepam (Klonopin) 2 mg PO TID EMELIA Last Admin: 09/20/18 17:32 Dose: 2 mg Dextrose (D50w Vial) 50 ml IV.PUSH UNSCH PRN PRN Reason: PER HYPOGLYCEMIA PROTOCOL Gabapentin (Neurontin) 800 mg PO TID [facility] Last Admin: 09/20/18 17:32 Dose: 800 mg Glucagon (Glucagon Inj) 1 mg OTHER PRN PRN PRN Reason: for Hypoglycemia Protocol Hydromorphone HCl (Dilaudid Pf Inj) 1 mg IV.PUSH Q4H PRN PRN Reason: BREAKTHROUGH PAIN Last Admin: 09/20/18 22:24 Dose: 1 mg Piperacillin/Tazobactam/Dextrose (Zosyn 3.375 Gm Premix) 3.375 gm in 50 mls @ 100 mls/hr IV.SIG Q6H [facility] Last Infusion: 09/20/18 19:59 Dose: Infused Vancomycin HCl 1,000 mg/ (Sodium Chloride) 250 mls @ 250 mls/hr IV.SIG Q8H EMELIA Last Infusion: 09/20/18 18:43 Dose: Infused Insulin Aspart (Novolog Insulin Correctional Sugar Inj) 0 unit SQ Q6HR EMELIA; Protocol Last Admin: 09/20/18 17:51 Dose: 1 unit Insulin Detemir (Levemir Inj) 32 unit SQ DAILY [facility] Last Admin: 09/20/18 08:30 Dose: 32 unit Miscellaneous Information ([facility] Ordered Lab Info) 0 each OTHER ONCE ONE Stop: 09/21/18 16:46 Ondansetron HCl (Zofran Inj) 4 mg IV.PUSH Q6H PRN PRN Reason: NAUSEA OR VOMITING Pharmacy Profile Note (Vancomycin Consult Pharmacy) 1 each OTHER UNSCH PRN PRN Reason: Pharmacy to dose Senna/Docusate Sodium (Michelle-Colace) 1 tab PO BID [facility] Last Admin: 09/20/18 22:24 Dose: Not Given Sodium Chloride (Ns Flush) 2 ml IV.FLUSH PRN PRN PRN Reason: FLUSH AFTER USING IV ACCESS Last Admin: 09/20/18 12:15 Dose: 2 ml Sodium Chloride (Ns Flush) 2 ml IV.FLUSH BID [facility] Last Admin: 09/20/18 22:23 Dose: 2 ml Allergies Allergy/AdvReac Type Severity Reaction Status Date / Time cefaclor [From [facility]] Allergy Severe Hives Verified 09/19/18 13:35 Home Medications Medication Instructions Recorded Confirmed Type clonazepam [Klonopin] 2 mg PO TID 08/27/18 09/19/18 History gabapentin 800 mg PO TID 08/27/18 09/19/18 History insulin aspart U-100 [Novolog unit SUBCUT DIRECTED 08/27/18 08/27/18 History U-100 Insulin aspart] insulin glargine [Lantus U-100 32 unit SUBCUT DAILY 08/27/18 09/19/18 History Insulin] Exam Vital signs: Vital Signs 09/20/18 00:00 09/20/18 08:00 09/20/18 09:41 Temperature 97.2 F L 98.5 F Pulse Rate 108 H 112 H Respiratory Rate 18 18 18 Blood Pressure 111/67 114/66 Pulse Oximetry 98 96 09/20/18 11:49 09/20/18 12:00 09/20/18 13:37 Temperature 100.9 F H Pulse Rate 114 H Respiratory Rate 18 18 18 Blood Pressure 109/56 L Pulse Oximetry 98 09/20/18 15:36 09/20/18 16:00 09/20/18 18:16 Temperature 99.1 F Pulse Rate 115 H Respiratory Rate 18 18 18 Blood Pressure 109/56 L Pulse Oximetry 96 09/20/18 19:40 Temperature 98.6 F Pulse Rate 120 H Respiratory Rate 16 Blood Pressure 118/86 Pulse Oximetry 99 Intake & Output 09/20/18 09/20/18 09/21/18 06:59 18:59 06:59 Intake Total 580 / 580 1050 / 1050 50 / 50 Balance 580 / 580 1050 / 1050 50 / 50 Weight 65.3 kg Intake: IV 100 / 100 400 / 400 50 / 50 Zosyn 3.375 GM Premix 3.375 gm 100 / 100 100 / 100 50 / 50 In 50 ml @ 100 mls/hr IV.SIG Q6H EMELIA Rx#:[id number] Vancomycin Inj 1,000 MG In NS 300 / 300 Inj 250 ML @ 250 mls/hr IV.SIG Q8H EMELIA Rx#:[id number] Oral 480 / 480 650 / 650 Other: # Voids 3 4 Date of Last Bowel Movement 09/19/18 # Bowel Movements 0 - Constitutional no acute distress, average body habitus - Routine HEENT Exam Head: Present: normocephalic, atraumatic Eye: Present: EOMI, PERRL ENT: Present: mucous membranes moist, oropharynx clear - Routine Neck Exam Present: supple. Absent: JVD, lymphadenopathy - Routine Respiratory Exam Present: CTA bilaterally. Absent: accessory muscle use, decreased breath sounds , respiratory distress, rhonchi - Routine Cardiovascular Exam Present: S1, S2, tachycardia. Absent: murmur, gallop, rubs - Routine Abdominal Exam Present: soft, normoactive bowel sounds. Absent: tenderness, distended, organomegaly, mass - Routine Extremities Exam Absent: cyanosis, clubbing, edema - Routine Back/Spine/Pelvis Exam Comments: B buttock with ill defined induration, erythema and central small fluctuance exquisetely tender to palpation - Routine Skin Exam Present: dry, warm. Absent: erythema - Routine Neurological Exam Present: alert, oriented X3, CN II-XII intact. Absent: sensory deficit, motor deficit - Routine Psychiatric Exam Present: normal affect, cooperative Results - Labs CBC & Chem 7: 09/20/18 09:54 09/20/18 08:54 Labs: Laboratory Results - last 24 hr 09/20/18 09/20/18 09/20/18 00:11 05:13 08:54 CBC w Diff WBC RBC Hgb Hct MCV MCH MCHC RDW Plt Count MPV Neut % (Auto) Lymph % (Auto) [place] % (Auto) Eos % (Auto) Baso % (Auto) Neut # (Auto) Lymph # (Auto) [place] # (Auto) Eos # (Auto) Baso # (Auto) WBC Differential Differential Comment Sodium 134 L Potassium 3.8 Chloride 99 Carbon Dioxide 26.8 Anion Gap 8 BUN 10 Creatinine 0.93 Estimated GFR Greater than 89 POC Glucose 359 H 121 H Random Glucose 261 H D Calcium 8.3 L D 09/20/18 09/20/18 09/20/18 09:54 11:27 17:21 CBC w Diff Auto diff final WBC 19.0 H RBC 4.22 L Hgb 12.8 L D Hct 39.0 MCV 92.4 MCH 30.4 MCHC 32.9 RDW 12.6 Plt Count 412 MPV 8.1 Neut % (Auto) 81.3 H Lymph % (Auto) 10.8 [place] % (Auto) 6.7 Eos % (Auto) 0.9 Baso % (Auto) 0.3 Neut # (Auto) 15.3 H Lymph # (Auto) 2.1 [place] # (Auto) 1.3 H Eos # (Auto) 0.2 Baso # (Auto) 0.1 WBC Differential . Differential Comment . Sodium Potassium Chloride Carbon Dioxide Anion Gap BUN Creatinine Estimated GFR POC Glucose 201 H 167 H Random Glucose Calcium - Imaging Pelvis CT 09/19/18 09:08 CONCLUSION: 1. Subcutaneous fat induration and inflammation in the right gluteal region with developing subcutaneous fluid collections characteristic of developing abscess. 2. No evidence of deep pelvic involvement. Assessment and Plan - Plan R buttock abscess aw insulin injections Bacteremia, gram positive , low grade IDDM cont current abx Needs I+D elena parker father @ b/s
[2018-09-21] MEDS: Vancomycin Inj 1,000 MG in Sodium Chlor 0.9% Inj 250 ML IV.SIG SCH ×3 (00:28→18:30)
[2018-09-21] MEDS: Piperacil/Tazo 3.375 GM Premix 3.375 GM/50 ML PIGGYBACK IV.SIG SCH ×4 (05:16→23:56)
[2018-09-21] MEDS: HYDROmorphone PF Inj 1 MG/ML Ampul IV.PUSH PRN ×3 (06:12→20:10)
[2018-09-21] MEDS: Insulin NovoLOG Aspart Correctional Sugar Inj SQ SCH ×3 (06:22→18:30)
[2018-09-21 07:45] LABS: Baso # (Auto) 0.1 th/mm3 (0.0-0.2); Baso % (Auto) 0.3 % (0.0-2.0); Eos # (Auto) 0.1 th/mm3 (0.0-0.4); Eos % (Auto) 0.5 % (0.0-4.0); Hematocrit 36.8 % (39.0-51.0); Hemoglobin 12.3 gm/dL (13.0-17.0); Lymph # (Auto) 1.9 th/mm3 (1.0-4.8); Lymph % (Auto) 9.7 % (9.0-44.0); Mean Corpuscular HGB Conc 33.4 % (32.0-36.0); Mean Corpuscular Hemoglobin 30.7 pg (27.0-34.0); Mean Platelet Volume 7.8 fL (7.0-11.0); Mono # (Auto) 1.3 th/mm3 (0.0-0.9); Mono % (Auto) 6.4 % (0.0-8.0); Neut # (Auto) 16.2 th/mm3 (1.8-7.7); Neut % (Auto) 83.1 % (16.0-70.0); Platelet Count 387 th/mm3 (150-450); Red Cell Distribution Width 12.6 % (11.6-17.2); White Blood Count 19.6 th/mm3 (4.0-11.0)
[2018-09-21 08:20] LABS: Chloride 100 meq/L (98-107); Potassium 3.5 meq/L (3.5-5.1); Sodium 137 meq/L (136-145)
[2018-09-21 08:24] LABS: Anion Gap 6 meq/L (5-15); Calcium 8.6 mg/dL (8.5-10.1); Carbon Dioxide 31.1 meq/L (21.0-32.0)
[2018-09-21] MEDS: clonazePAM 1 MG Tablet PO SCH ×4 (08:30→18:01)
[2018-09-21] MEDS: Gabapentin 400 MG Capsule PO SCH ×4 (08:30→18:03)
[2018-09-21 08:31] LABS: Blood Urea Nitrogen 10 mg/dL (7-18); Glomerular Filtration Rate Greater Than 89 mL/min (>89); Glucose,Random 131 mg/dL (74-106)
[2018-09-21] MEDS: Senna/Docusate Sodium 8.6/50 MG Tablet PO SCH ×2 (08:32→20:17)
[2018-09-21] MEDS: Insulin Detemir Inj 1,000 UNIT/10 ML Vial SQ SCH (08:33)
--- NOTE | 2018-09-21 09:44 | P.PN ---
Subjective Interval history: Patient with rt buttocks abscess from dirty needle insulin injections which is very painful with elevation WBC count ,discussed with interventional radiology and doubt they will be able to obtain good result suggest surgical evaluation ID Dr. Pacheco saw patient with me again last night agrees and suggests having Dr. Levin surgery look at patient ,also in view of this infection and patient overall not feeling well for weeks ,need to consoder endocarditis will ask cardiology to see may need DANIEL,transfer patient to main hospital. Physical Exam Vital signs: Vital Signs 09/20/18 09:41 09/20/18 11:49 09/20/18 12:00 Temperature 100.9 F H Pulse Rate 114 H Respiratory Rate 18 18 18 Blood Pressure 109/56 L Pulse Oximetry 98 09/20/18 13:37 09/20/18 15:36 09/20/18 16:00 Temperature 99.1 F Pulse Rate 115 H Respiratory Rate 18 18 Blood Pressure 109/56 L Pulse Oximetry 96 09/20/18 18:16 09/20/18 19:40 09/20/18 23:58 Temperature 98.6 F 98.6 F Pulse Rate 120 H 117 H Respiratory Rate 18 16 16 Blood Pressure 118/86 119/75 Pulse Oximetry 99 99 Intake & Output 09/20/18 09/21/18 09/21/18 18:59 06:59 18:59 Intake Total 1050 / 1050 400 / 400 Balance 1050 / 1050 400 / 400 Weight 67 kg Intake: IV 400 / 400 400 / 400 Zosyn 3.375 GM Premix 3.375 gm 100 / 100 150 / 150 In 50 ml @ 100 mls/hr IV.SIG Q6H EMELIA Rx#:[id number] Vancomycin Inj 1,000 MG In NS 300 / 300 250 / 250 Inj 250 ML @ 250 mls/hr IV.SIG Q8H EMELIA Rx#:[id number] Oral 650 / 650 Other: # Voids 4 3 Date of Last Bowel Movement 09/19/18 # Bowel Movements 0 Narrative: GENERAL: SKIN: Warm and dry. more formed area of cellulitis rt buttocks red HEAD: Normocephalic. EYES: No scleral icterus. No injection or drainage. NECK: Supple, trachea midline. No JVD or lymphadenopathy. CARDIOVASCULAR: Regular rate and rhythm without murmurs, gallops, or rubs. RESPIRATORY: Breath sounds equal bilaterally. No accessory muscle use. GASTROINTESTINAL: Abdomen soft, non-tender, nondistended. MUSCULOSKELETAL: No cyanosis, or edema. BACK: Nontender without obvious deformity. No CVA tenderness. Results - Labs CBC & Chem 7: 09/21/18 07:00 09/21/18 07:00 Laboratory Results - last 24 hr 09/20/18 09/20/18 09/20/18 08:54 09:54 11:27 CBC w Diff Auto diff final WBC 19.0 H RBC 4.22 L Hgb 12.8 L D Hct 39.0 MCV 92.4 MCH 30.4 MCHC 32.9 RDW 12.6 Plt Count 412 MPV 8.1 Neut % (Auto) 81.3 H Lymph % (Auto) 10.8 [place] % (Auto) 6.7 Eos % (Auto) 0.9 Baso % (Auto) 0.3 Neut # (Auto) 15.3 H Lymph # (Auto) 2.1 [place] # (Auto) 1.3 H Eos # (Auto) 0.2 Baso # (Auto) 0.1 WBC Differential . Differential Comment . Sodium 134 L Potassium 3.8 Chloride 99 Carbon Dioxide 26.8 Anion Gap 8 BUN 10 Creatinine 0.93 Estimated GFR Greater than 89 POC Glucose 201 H Random Glucose 261 H D Calcium 8.3 L D 09/20/18 09/20/18 09/21/18 17:21 23:26 06:20 CBC w Diff WBC RBC Hgb Hct MCV MCH MCHC RDW Plt Count MPV Neut % (Auto) Lymph % (Auto) [place] % (Auto) Eos % (Auto) Baso % (Auto) Neut # (Auto) Lymph # (Auto) [place] # (Auto) Eos # (Auto) Baso # (Auto) WBC Differential Differential Comment Sodium Potassium Chloride Carbon Dioxide Anion Gap BUN Creatinine Estimated GFR POC Glucose 167 H 344 H 133 H Random Glucose Calcium 09/21/18 09/21/18 09/21/18 07:00 07:00 07:40 CBC w Diff Auto diff final WBC 19.6 H RBC 4.00 L Hgb 12.3 L Hct 36.8 L MCV 92.0 MCH 30.7 MCHC 33.4 RDW 12.6 Plt Count 387 MPV 7.8 Neut % (Auto) 83.1 H Lymph % (Auto) 9.7 [place] % (Auto) 6.4 Eos % (Auto) 0.5 Baso % (Auto) 0.3 Neut # (Auto) 16.2 H Lymph # (Auto) 1.9 [place] # (Auto) 1.3 H Eos # (Auto) 0.1 Baso # (Auto) 0.1 WBC Differential . Differential Comment . Sodium 137 Potassium 3.5 Chloride 100 Carbon Dioxide 31.1 Anion Gap 6 BUN 10 Creatinine 0.91 Estimated GFR Greater than 89 POC Glucose 152 H Random Glucose 131 H D Calcium 8.6 Microbiology 09/19/18 09:35 Blood - Peripheral Aerobic Blood Culture - Preliminary No growth in 1 day 09/19/18 09:35 Blood - Peripheral Anaerobic Blood Culture - Preliminary gram positive cocci 09/19/18 09:41 Blood - Peripheral Aerobic Blood Culture - Preliminary No growth in 1 day 09/19/18 09:41 Blood - Peripheral Anaerobic Blood Culture - Preliminary No growth in 1 day Assessment and Plan - Assessment (1) Cellulitis and abscess of buttock Code(s): L02.31 - Cutaneous abscess of buttock; L03.317 - Cellulitis of buttock Status: Acute Plan: on IV Zosyn and vancomycin ,ID and interventional radiology saw patient both feel needs to see surgery ,also consider endocarditis will ask cardiology to see (2) Abscess of buttock, right Code(s): L02.31 - Cutaneous abscess of buttock Status: Acute Plan: as above abscess due to injection insulin thru dirty needles (3) DKA, type 1 Code(s): E10.10 - Type 1 diabetes mellitus with ketoacidosis without coma Status: Acute Plan: continue home med and sliding scale (4) Leukocytosis Code(s): D72.829 - Elevated white blood cell count, unspecified Status: Acute Plan: will follow labs - Plan further plan as case develops
--- NOTE | 2018-09-21 13:36 | P.CONCA ---
History of Present Illness Primary Care Provider: Frank Matthews MD Chief Complaint: painful lump rt prlvic area site of insulin injections History of Present Illness: 23-year-old male with insulin-dependent diabetes mellitus who presented for buttocks abscess from insulin injection site. Other than buttocks pain the patient complains of generalized malaise. He denies any chest pain or shortness of breath. He has been found to have signs and symptoms concerning for sepsis and 2/4 blood cultures positive for coag negative staph aureus. We have been asked to evaluate the patient for DANIEL to rule out endocarditis. Also general surgery is asking for clearance for I&D in the OR today. Review of Systems All other systems reviewed negative except as stated in HPI PMFSH - History History Provided By: Patient, Medical Record - Medical History Medical History: Medical History (Last Reviewed 09/20/18 @ 22:29 by Zehra Pacheco MD) Anxiety Psychiatric disorder Diabetes Surgical history unknown - Surgical History Surgical History: Surgical History (Last Reviewed 09/20/18 @ 22:29 by Zehra Pacheco MD) No history of previous surgery - Family History Family History: Family History (Last Updated 09/20/18 @ 22:30 by Zehra Pacheco MD) Other No pertinent family history - Tobacco History Second Hand Smoke Exposure: No Tobacco Use In Past 30 Days: Yes Smoking Status: Never smoker Tobacco Type: Cigarettes - Alcohol History How Often Do You Have a Drink Containing Alcohol: Never - Substance Use History Substance History: No History of Abuse - Travel History Recent Travel in the [place] Within the Last 8 Weeks: No Recent Travel Out of the Country Within the Last 8 Weeks: No - Immunization History Tetanus Immunization: Unsure Hx Influenza Vaccine This Season: Yes Medications and Allergies Allergies Allergy/AdvReac Type Severity Reaction Status Date / Time cefaclor [From [facility]] Allergy Severe Hives Verified 09/19/18 13:35 Home Medications Medication Instructions Recorded Confirmed Type clonazepam [Klonopin] 2 mg PO TID 08/27/18 09/19/18 History gabapentin 800 mg PO TID 08/27/18 09/19/18 History insulin aspart U-100 [Novolog unit SUBCUT DIRECTED 08/27/18 08/27/18 History U-100 Insulin aspart] insulin glargine [Lantus U-100 32 unit SUBCUT DAILY 08/27/18 09/19/18 History Insulin] Active Medications: Active Medications Acetaminophen (Tylenol) 650 mg PO Q4H PRN PRN Reason: Temp > 100.4 Hydrocodone Bitart/Acetaminophen ([place] 7.5/325) 1 tab PO Q4H PRN PRN Reason: PAIN SCALE 6 TO 10 Last Admin: 09/21/18 09:28 Dose: 1 tab Clonazepam (Klonopin) 2 mg PO TID [facility] Last Admin: 09/21/18 12:49 Dose: 2 mg Dextrose (D50w Vial) 50 ml IV.PUSH UNSCH PRN PRN Reason: PER HYPOGLYCEMIA PROTOCOL Gabapentin (Neurontin) 800 mg PO TID [facility] Last Admin: 09/21/18 12:49 Dose: 800 mg Glucagon (Glucagon Inj) 1 mg OTHER PRN PRN PRN Reason: for Hypoglycemia Protocol Hydromorphone HCl (Dilaudid Pf Inj) 1 mg IV.PUSH Q4H PRN PRN Reason: BREAKTHROUGH PAIN Last Admin: 09/21/18 10:20 Dose: 1 mg Piperacillin/Tazobactam/Dextrose (Zosyn 3.375 Gm Premix) 3.375 gm in 50 mls @ 100 mls/hr IV.SIG Q6H [facility] Last Admin: 09/21/18 11:56 Dose: 100 mls/hr Vancomycin HCl 1,000 mg/ (Sodium Chloride) 250 mls @ 250 mls/hr IV.SIG Q8H EMELIA Last Infusion: 09/21/18 09:44 Dose: Infused Insulin Aspart (Novolog Insulin Correctional Sugar Inj) 0 unit SQ Q6HR [facility]; Protocol Last Admin: 09/21/18 12:48 Dose: 3 unit Insulin Detemir (Levemir Inj) 32 unit SQ DAILY [facility] Last Admin: 09/21/18 08:33 Dose: Not Given Miscellaneous Information ([facility] Ordered Lab Info) 0 each OTHER ONCE ONE Stop: 09/21/18 16:46 Ondansetron HCl (Zofran Inj) 4 mg IV.PUSH Q6H PRN PRN Reason: NAUSEA OR VOMITING Pharmacy Profile Note (Vancomycin Consult Pharmacy) 1 each OTHER UNSCH PRN PRN Reason: Pharmacy to dose Senna/Docusate Sodium (Michelle-Colace) 1 tab PO BID [facility] Last Admin: 09/21/18 08:32 Dose: Not Given Sodium Chloride (Ns Flush) 2 ml IV.FLUSH PRN PRN PRN Reason: FLUSH AFTER USING IV ACCESS Last Admin: 09/20/18 12:15 Dose: 2 ml Sodium Chloride (Ns Flush) 2 ml IV.FLUSH BID [facility] Last Admin: 09/21/18 08:31 Dose: 2 ml Exam Vital signs: Vital Signs 09/20/18 13:37 09/20/18 15:36 09/20/18 16:00 Temperature 99.1 F Pulse Rate 115 H Respiratory Rate 18 18 18 Blood Pressure 109/56 L Pulse Oximetry 96 09/20/18 18:16 09/20/18 19:40 09/20/18 23:58 Temperature 98.6 F 98.6 F Pulse Rate 120 H 117 H Respiratory Rate 18 16 16 Blood Pressure 118/86 119/75 Pulse Oximetry 99 99 09/21/18 12:00 Temperature 98.7 F Pulse Rate 108 H Respiratory Rate 20 Blood Pressure 137/60 Pulse Oximetry 96 Intake & Output 09/20/18 09/21/18 09/21/18 18:59 06:59 18:59 Intake Total 1050 / 1050 400 / 400 100 / 100 Balance 1050 / 1050 400 / 400 100 / 100 Weight 147 lb 11.355 oz Intake: IV 400 / 400 400 / 400 100 / 100 Zosyn 3.375 GM Premix 3.375 gm 100 / 100 150 / 150 In 50 ml @ 100 mls/hr IV.SIG Q6H EMELIA Rx#:[id number] Vancomycin Inj 1,000 MG In NS 300 / 300 250 / 250 100 / 100 Inj 250 ML @ 250 mls/hr IV.SIG Q8H EMELIA Rx#:[id number] Oral 650 / 650 Other: # Voids 4 3 Date of Last Bowel Movement 09/19/18 # Bowel Movements 0 Narrative: GENERAL: Well-developed well-nourished. In no acute distress. NECK: No carotid bruits. No JVD. CARDIOVASCULAR: Regular rate and rhythm. No murmur appreciated. RESPIRATORY: No accessory muscle use. Clear to auscultation. Breath sounds equal bilaterally. MUSCULOSKELETAL: No clubbing or cyanosis. No edema. NEUROLOGICAL: Awake and alert. Normal speech. Results 09/21/18 07:00 09/21/18 07:00 CBC 09/20/18 09/21/18 Range/Units 09:54 07:00 WBC 19.0 H 19.6 H (4.0-11.0) th/mm3 RBC 4.22 L 4.00 L (4.50-5.90) mil/mm3 Hgb 12.8 L D 12.3 L (13.0-17.0) gm/dL Hct 39.0 36.8 L (39.0-51.0) % Plt Count 412 387 (150-450) th/mm3 Neut # (Auto) 15.3 H 16.2 H (1.8-7.7) th/mm3 Lymph # (Auto) 2.1 1.9 (1.0-4.8) th/mm3 [place] # (Auto) 1.3 H 1.3 H (0.0-0.9) th/mm3 Eos # (Auto) 0.2 0.1 (0.0-0.4) th/mm3 Baso # (Auto) 0.1 0.1 (0.0-0.2) th/mm3 Comprehensive Metabolic Panel 09/20/18 09/21/18 Range/Units 08:54 07:00 Sodium 134 L 137 (136-145) meq/L Potassium 3.8 3.5 (3.5-5.1) meq/L Chloride 99 100 (98-107) meq/L Carbon Dioxide 26.8 31.1 (21.0-32.0) meq/L BUN 10 10 (7-18) mg/dL Creatinine 0.93 0.91 (0.60-1.30) mg/dL Calcium 8.3 L D 8.6 (8.5-10.1) mg/dL Intake and Output 09/20/18 09/21/18 09/21/18 22:59 06:59 14:59 Intake Total 1000 / 1000 350 / 350 100 / 100 Balance 1000 / 1000 350 / 350 100 / 100 Intake: IV 350 / 350 350 / 350 100 / 100 Zosyn 3.375 GM Premix 3.375 gm 50 / 50 100 / 100 In 50 ml @ 100 mls/hr IV.SIG Q6H EMELIA Rx#:[id number] Vancomycin Inj 1,000 MG In NS 300 / 300 250 / 250 100 / 100 Inj 250 ML @ 250 mls/hr IV.SIG Q8H EMELIA Rx#:[id number] Oral 650 / 650 Other: # Voids 4 3 # Bowel Movements 0 Weight 147 lb 11.355 oz Assessment and Plan - Plan 23-year-old male with insulin-dependent diabetes mellitus who presented for buttocks abscess from insulin injection site. He has been found to have signs and symptoms concerning for sepsis and 2/4 blood cultures positive for coag negative staph aureus. We have been asked to evaluate the patient for DANIEL to rule out endocarditis. Bacteremia: Patient is currently n.p.o. and agreeable for DANIEL today. Will likely clear patient from CV perspective for I&D after DANIEL today. Discussed Condition With: Patient, Dr. Gustafson, Dr. aMrley - Attending Attestation Transesophageal echocardiogram, preliminary report No signs of vegetation.
--- NOTE | 2018-09-21 13:45 | P.PNVS ---
Subjective Subjective/Hospital Course: 09/21/2018 Patient with buttock abscess. Spoken to Dr. Pacheco. Patient's [facility] insured individual and [facility] insists to have their own surgeons take care of these patients. I will be available if something changes Thanks J Objective Vital Signs / I&O: Vital Signs 09/20/18 15:36 09/20/18 16:00 09/20/18 18:16 Temperature 99.1 F Pulse Rate 115 H Respiratory Rate 18 18 18 Blood Pressure 109/56 L Pulse Oximetry 96 09/20/18 19:40 09/20/18 23:58 09/21/18 12:00 Temperature 98.6 F 98.6 F 98.7 F Pulse Rate 120 H 117 H 108 H Respiratory Rate 16 16 20 Blood Pressure 118/86 119/75 137/60 Pulse Oximetry 99 99 96 Intake & Output 09/20/18 09/21/18 09/21/18 18:59 06:59 18:59 Intake Total 1050 / 1050 400 / 400 100 / 100 Balance 1050 / 1050 400 / 400 100 / 100 Weight 67 kg Intake: IV 400 / 400 400 / 400 100 / 100 Zosyn 3.375 GM Premix 3.375 gm 100 / 100 150 / 150 In 50 ml @ 100 mls/hr IV.SIG Q6H EMELIA Rx#:[id number] Vancomycin Inj 1,000 MG In NS 300 / 300 250 / 250 100 / 100 Inj 250 ML @ 250 mls/hr IV.SIG Q8H EMELIA Rx#:[id number] Oral 650 / 650 Other: # Voids 4 3 Date of Last Bowel Movement 09/19/18 # Bowel Movements 0 Laboratory Results - last 24 hr 09/20/18 09/20/18 09/21/18 17:21 23:26 06:20 CBC w Diff WBC RBC Hgb Hct MCV MCH MCHC RDW Plt Count MPV Neut % (Auto) Lymph % (Auto) [place] % (Auto) Eos % (Auto) Baso % (Auto) Neut # (Auto) Lymph # (Auto) [place] # (Auto) Eos # (Auto) Baso # (Auto) WBC Differential Differential Comment Sodium Potassium Chloride Carbon Dioxide Anion Gap BUN Creatinine Estimated GFR POC Glucose 167 H 344 H 133 H Random Glucose Calcium 09/21/18 09/21/18 09/21/18 07:00 07:00 07:40 CBC w Diff Auto diff final WBC 19.6 H RBC 4.00 L Hgb 12.3 L Hct 36.8 L MCV 92.0 MCH 30.7 MCHC 33.4 RDW 12.6 Plt Count 387 MPV 7.8 Neut % (Auto) 83.1 H Lymph % (Auto) 9.7 [place] % (Auto) 6.4 Eos % (Auto) 0.5 Baso % (Auto) 0.3 Neut # (Auto) 16.2 H Lymph # (Auto) 1.9 [place] # (Auto) 1.3 H Eos # (Auto) 0.1 Baso # (Auto) 0.1 WBC Differential . Differential Comment . Sodium 137 Potassium 3.5 Chloride 100 Carbon Dioxide 31.1 Anion Gap 6 BUN 10 Creatinine 0.91 Estimated GFR Greater than 89 POC Glucose 152 H Random Glucose 131 H D Calcium 8.6 09/21/18 11:52 CBC w Diff WBC RBC Hgb Hct MCV MCH MCHC RDW Plt Count MPV Neut % (Auto) Lymph % (Auto) [place] % (Auto) Eos % (Auto) Baso % (Auto) Neut # (Auto) Lymph # (Auto) [place] # (Auto) Eos # (Auto) Baso # (Auto) WBC Differential Differential Comment Sodium Potassium Chloride Carbon Dioxide Anion Gap BUN Creatinine Estimated GFR POC Glucose 249 H Random Glucose Calcium Microbiology 09/19/18 09:35 Aerobic Blood Culture - Preliminary Blood - Peripheral gram positive cocci Anaerobic Blood Culture - Preliminary Staphylococcus coag negative 09/19/18 09:41 Aerobic Blood Culture - Preliminary Blood - Peripheral No growth in 2 days Anaerobic Blood Culture - Preliminary No growth in 2 days
--- NOTE | 2018-09-21 15:35 | P.CONGS ---
[facility] Gen Surgery Consult Note Consult date: 09/21/18 Reason for consult: other (Potential surgical debridement of buttocks abcess.) Narrative: Consultation requested for evaluation of abscess of right medial buttock. Pt presented to ER with pain at site after failing to rotate insulin injection sites, and observe proper needle hygiene. Symptoms have not improved significantly with IV ABX administration. Pt is requesting to be "put to sleep " for I&D r/t extreme pain at the site. Review of Systems All other systems reviewed negative except as stated in [facility] PMFSH - History History Provided By: Patient, Medical Record - Medical History Medical History: Medical History (Last Reviewed 09/20/18 @ 22:29 by Zehra Pacheco MD) Anxiety Psychiatric disorder Diabetes Surgical history unknown - Surgical History Surgical History: Surgical History (Last Reviewed 09/20/18 @ 22:29 by Zehra Pacheco MD) No history of previous surgery - Family History Family History: Family History (Last Updated 09/20/18 @ 22:30 by Zehra Pacheco MD) Other No pertinent family history - Social History I have reviewed the patient's Social History: Yes - Tobacco History Second Hand Smoke Exposure: No Tobacco Use In Past 30 Days: Yes Smoking Status: Never smoker Tobacco Type: Cigarettes - Alcohol History How Often Do You Have a Drink Containing Alcohol: Never - Substance Use History Substance History: No History of Abuse - Travel History Recent Travel in the [place] Within the Last 8 Weeks: No Recent Travel Out of the Country Within the Last 8 Weeks: No - Immunization History Tetanus Immunization: Unsure Hx Influenza Vaccine This Season: Yes Medications and Allergies Active Medications: Active Medications Acetaminophen (Tylenol) 650 mg PO Q4H PRN PRN Reason: Temp > 100.4 Hydrocodone Bitart/Acetaminophen ([place] 7.5/325) 1 tab PO Q4H PRN PRN Reason: PAIN SCALE 6 TO 10 Last Admin: 09/21/18 14:15 Dose: 1 tab Clonazepam (Klonopin) 2 mg PO TID [facility] Last Admin: 09/21/18 12:49 Dose: 2 mg Dextrose (D50w Vial) 50 ml IV.PUSH UNSCH PRN PRN Reason: PER HYPOGLYCEMIA PROTOCOL Gabapentin (Neurontin) 800 mg PO TID [facility] Last Admin: 09/21/18 12:49 Dose: 800 mg Glucagon (Glucagon Inj) 1 mg OTHER PRN PRN PRN Reason: for Hypoglycemia Protocol Hydromorphone HCl (Dilaudid Pf Inj) 1 mg IV.PUSH Q4H PRN PRN Reason: BREAKTHROUGH PAIN Last Admin: 09/21/18 10:20 Dose: 1 mg Piperacillin/Tazobactam/Dextrose (Zosyn 3.375 Gm Premix) 3.375 gm in 50 mls @ 100 mls/hr IV.SIG Q6H EMELIA Last Admin: 09/21/18 11:56 Dose: 100 mls/hr Vancomycin HCl 1,000 mg/ (Sodium Chloride) 250 mls @ 250 mls/hr IV.SIG Q8H EMELIA Last Infusion: 09/21/18 09:44 Dose: Infused Insulin Aspart (Novolog Insulin Correctional Sugar Inj) 0 unit SQ Q6HR [facility]; Protocol Last Admin: 09/21/18 12:48 Dose: 3 unit Insulin Detemir (Levemir Inj) 32 unit SQ DAILY [facility] Last Admin: 09/21/18 08:33 Dose: Not Given Miscellaneous Information ([facility] Ordered Lab Info) 0 each OTHER ONCE ONE Stop: 09/21/18 16:46 Ondansetron HCl (Zofran Inj) 4 mg IV.PUSH Q6H PRN PRN Reason: NAUSEA OR VOMITING Pharmacy Profile Note (Vancomycin Consult Pharmacy) 1 each OTHER UNSCH PRN PRN Reason: Pharmacy to dose Senna/Docusate Sodium (Michelle-Colace) 1 tab PO BID [facility] Last Admin: 09/21/18 08:32 Dose: Not Given Sodium Chloride (Ns Flush) 2 ml IV.FLUSH PRN PRN PRN Reason: FLUSH AFTER USING IV ACCESS Last Admin: 09/20/18 12:15 Dose: 2 ml Sodium Chloride (Ns Flush) 2 ml IV.FLUSH BID [facility] Last Admin: 09/21/18 08:31 Dose: 2 ml Allergies Allergy/AdvReac Type Severity Reaction Status Date / Time cefaclor [From [facility]] Allergy Severe Hives Verified 09/19/18 13:35 Home Medications Medication Instructions Recorded Confirmed Type clonazepam [Klonopin] 2 mg PO TID 08/27/18 09/19/18 History gabapentin 800 mg PO TID 08/27/18 09/19/18 History insulin aspart U-100 [Novolog unit SUBCUT DIRECTED 08/27/18 08/27/18 History U-100 Insulin aspart] insulin glargine [Lantus U-100 32 unit SUBCUT DAILY 08/27/18 09/19/18 History Insulin] Exam Vital signs: Vital Signs 09/20/18 15:36 09/20/18 16:00 09/20/18 18:16 Temperature 99.1 F Pulse Rate 115 H Respiratory Rate 18 18 18 Blood Pressure 109/56 L Pulse Oximetry 96 09/20/18 19:40 09/20/18 23:58 09/21/18 12:00 Temperature 98.6 F 98.6 F 98.7 F Pulse Rate 120 H 117 H 108 H Respiratory Rate 16 16 20 Blood Pressure 118/86 119/75 137/60 Pulse Oximetry 99 99 96 Intake & Output 09/20/18 09/21/18 09/21/18 18:59 06:59 18:59 Intake Total 1050 / 1050 400 / 400 100 / 100 Balance 1050 / 1050 400 / 400 100 / 100 Weight 67 kg Intake: IV 400 / 400 400 / 400 100 / 100 Zosyn 3.375 GM Premix 3.375 gm 100 / 100 150 / 150 In 50 ml @ 100 mls/hr IV.SIG Q6H EMELIA Rx#:[id number] Vancomycin Inj 1,000 MG In NS 300 / 300 250 / 250 100 / 100 Inj 250 ML @ 250 mls/hr IV.SIG Q8H EMELIA Rx#:[id number] Oral 650 / 650 Other: # Voids 4 3 Date of Last Bowel Movement 09/19/18 # Bowel Movements 0 - Constitutional no acute distress - Routine HEENT Exam Head: Present: normocephalic - Routine Neck Exam Present: supple - Routine Respiratory Exam Comments: unlabored - Routine Abdominal Exam Comments: non distended - Routine Extremities Exam Present: full ROM - Routine Skin Exam Comments: large sized erythematous area with moderate sized central fluctuance, and induration at margins. Results - Labs 09/21/18 07:00 09/21/18 07:00 Laboratory Results - last 24 hr 09/20/18 09/20/18 09/21/18 17:21 23:26 06:20 CBC w Diff WBC RBC Hgb Hct MCV MCH MCHC RDW Plt Count MPV Neut % (Auto) Lymph % (Auto) [place] % (Auto) Eos % (Auto) Baso % (Auto) Neut # (Auto) Lymph # (Auto) [place] # (Auto) Eos # (Auto) Baso # (Auto) WBC Differential Differential Comment Sodium Potassium Chloride Carbon Dioxide Anion Gap BUN Creatinine Estimated GFR POC Glucose 167 H 344 H 133 H Random Glucose Calcium 09/21/18 09/21/18 09/21/18 07:00 07:00 07:40 CBC w Diff Auto diff final WBC 19.6 H RBC 4.00 L Hgb 12.3 L Hct 36.8 L MCV 92.0 MCH 30.7 MCHC 33.4 RDW 12.6 Plt Count 387 MPV 7.8 Neut % (Auto) 83.1 H Lymph % (Auto) 9.7 [place] % (Auto) 6.4 Eos % (Auto) 0.5 Baso % (Auto) 0.3 Neut # (Auto) 16.2 H Lymph # (Auto) 1.9 [place] # (Auto) 1.3 H Eos # (Auto) 0.1 Baso # (Auto) 0.1 WBC Differential . Differential Comment . Sodium 137 Potassium 3.5 Chloride 100 Carbon Dioxide 31.1 Anion Gap 6 BUN 10 Creatinine 0.91 Estimated GFR Greater than 89 POC Glucose 152 H Random Glucose 131 H D Calcium 8.6 09/21/18 11:52 CBC w Diff WBC RBC Hgb Hct MCV MCH MCHC RDW Plt Count MPV Neut % (Auto) Lymph % (Auto) [place] % (Auto) Eos % (Auto) Baso % (Auto) Neut # (Auto) Lymph # (Auto) [place] # (Auto) Eos # (Auto) Baso # (Auto) WBC Differential Differential Comment Sodium Potassium Chloride Carbon Dioxide Anion Gap BUN Creatinine Estimated GFR POC Glucose 249 H Random Glucose Calcium - Imaging Imaging: ITS Impressions Pelvis CT 09/19/18 09:08 CONCLUSION: 1. Subcutaneous fat induration and inflammation in the right gluteal region with developing subcutaneous fluid collections characteristic of developing abscess. 2. No evidence of deep pelvic involvement. Assessment and Plan - Plan Plan to take to surgery for I&D, as patient will not tolerate procedure at bedside. Await clearance from cardiology, pending DANIEL. Surgery today if cleared Code Status: full Discussed Condition With: patient
[2018-09-21] MEDS ORDERED: Lidocaine 1%/Epinephrine 1:100,000 Inj 50 ML Vial ONE (15:48)
[2018-09-21] MEDS ORDERED: fentaNYL Citrate Inj 100 MCG/2 ML Ampul ONE (16:10)
--- NOTE | 2018-09-21 16:42 | MP ---
cc: Minor Marley MD DATE OF OPERATION: 09/21/2018 PREOPERATIVE DIAGNOSIS: Right gluteal abscess. POSTOPERATIVE DIAGNOSIS: Right gluteal abscess. PROCEDURE PERFORMED: Incision and drainage of right gluteal abscess. SURGEON: Minor Marley MD ANESTHESIA: Local, MAC. ESTIMATED BLOOD LOSS: Scant. FINDINGS: Purulent drainage. SPECIMEN: Culture obtained. COMPLICATIONS: None. DESCRIPTION OF PROCEDURE: The patient was brought to the operating room, and on the stretcher, the patient was placed with the right side up. He was then sedated. His right gluteal region was prepped and draped sterilely. 1% lidocaine was used to anesthetize the skin and subcutaneous tissue over the area of fluctuance. A cruciate incision was made. A moderate amount of purulent fluid obtained. A culture was obtained. The wound was irrigated with saline. It was then packed with half-inch iodoform packing and covered with 4 x 4's. The patient was then awakened and taken back to the recovery room. Minor Marley MD JLS/lc , 04:03 PM , 04:08 PM
[2018-09-21] MEDS ORDERED: Pharmacy Ordered Lab Info OTHER ONE (16:45)
[2018-09-21] MEDS ORDERED: *morphine SULFATE 4 MG/ML PERIprocedure ONLY ONE ×2 (17:08→17:20)
--- NOTE | 2018-09-21 17:28 | ECHRPT ---
Indication: ENDOCARDITIS CONCLUSIONS Normal left ventricular size and wall thickness. The left ventricular systolic function is normal wi th an estimated ejection fraction in the range of 60-65%. Left ventricular diastolic function parameters a re normal. No vegetations BP: / HR: Rhythm: Technical Quality: Medications Complications Proc. Components FINDINGS LEFT VENTRICLE Normal left ventricular size and wall thickness. The left ventricular systolic function is normal wi th an estimated ejection fraction in the range of 60-65%. Left ventricular diastolic function parameters a re normal. RIGHT VENTRICLE Normal right ventricular size and systolic function. LEFT ATRIUM The left atrial size is normal. RIGHT ATRIUM The right atrial size is normal. ATRIAL SEPTUM Normal atrial septal thickness without atrial level shunting by limited color doppler interrogation. AORTA The aortic root and proximal ascending aorta are normal in size on limited imaging. MITRAL VALVE Structurally normal mitral valve. No mitral valve stenosis or regurgitation. AORTIC VALVE Trileaflet aortic valve. No aortic valve stenosis or regurgitation. TRICUSPID VALVE Structurally normal tricuspid valve. No tricuspid valve stenosis or regurgitation. VESSELS The inferior vena cava is normal in size. PULMONARY VALVE The pulmonary valve is not well visualized. PERICADIUM No pericardial effusion. Laith Gustafson MD, FACC (Electronically Signed) Final Date:21 September 2018 17:27
[2018-09-22] MEDS: HYDROmorphone PF Inj 1 MG/ML Ampul IV.PUSH PRN ×6 (00:12→20:52)
[2018-09-22] MEDS: Insulin NovoLOG Aspart Correctional Sugar Inj SQ SCH ×4 (00:13→17:47)
[2018-09-22] MEDS: Vancomycin Inj 1,000 MG in Sodium Chlor 0.9% Inj 250 ML IV.SIG SCH ×3 (00:16→17:47)
[2018-09-22] MEDS: Piperacil/Tazo 3.375 GM Premix 3.375 GM/50 ML PIGGYBACK IV.SIG SCH ×2 (05:18→12:46)
[2018-09-22] MEDS: Gabapentin 400 MG Capsule PO SCH ×3 (08:21→17:46)
[2018-09-22] MEDS: clonazePAM 1 MG Tablet PO SCH ×3 (08:21→17:46)
[2018-09-22] MEDS: Insulin Detemir Inj 1,000 UNIT/10 ML Vial SQ SCH (08:22)
[2018-09-22] MEDS: Senna/Docusate Sodium 8.6/50 MG Tablet PO SCH ×2 (08:22→20:52)
[2018-09-22 08:59] LABS: Baso % (Auto) 0.3 % (0.0-2.0); Eos # (Auto) 0.3 th/mm3 (0.0-0.4); Eos % (Auto) 2.2 % (0.0-4.0); Hematocrit 39.1 % (39.0-51.0); Hemoglobin 13.9 gm/dL (13.0-17.0); Lymph # (Auto) 2.9 th/mm3 (1.0-4.8); Lymph % (Auto) 24.3 % (9.0-44.0); Mean Corpuscular HGB Conc 35.7 % (32.0-36.0); Mean Corpuscular Hemoglobin 32.1 pg (27.0-34.0); Mean Platelet Volume 7.6 fL (7.0-11.0); Mono # (Auto) 0.9 th/mm3 (0.0-0.9); Mono % (Auto) 7.7 % (0.0-8.0); Neut # (Auto) 7.8 th/mm3 (1.8-7.7); Neut % (Auto) 65.5 % (16.0-70.0); Platelet Count 356 th/mm3 (150-450); Red Blood Count 4.34 mil/mm3 (4.50-5.90); Red Cell Distribution Width 12.6 % (11.6-17.2); White Blood Count 11.9 th/mm3 (4.0-11.0)
[2018-09-22 09:06] LABS: Anion Gap 7 meq/L (5-15); Blood Urea Nitrogen 10 mg/dL (7-18); Carbon Dioxide 29.7 meq/L (21.0-32.0); Chloride 98 meq/L (98-107); Glomerular Filtration Rate Greater Than 89 mL/min (>89); Glucose,Random 227 mg/dL (74-106); Sodium 135 meq/L (136-145)
--- NOTE | 2018-09-22 09:42 | P.PNIM ---
Subjective Interval history: Pt complains of being painful and requesting more pain meds His BS are elevated this morning in the mid 200's Physical Exam Vital signs: Last Vital Signs Temp 97.4 F L 09/22/18 08:00 Pulse 72 09/22/18 08:00 Resp 17 09/22/18 08:00 BP 113/60 09/22/18 08:00 Pulse Ox 99 09/22/18 08:00 Narrative: General: NAD, AAOx3 Chest: CTA Cardiac: Regular Abd: +BS, soft ND/NT Ext: No edema Results Labs CBC & Chem 7: 09/22/18 08:34 09/22/18 08:[address] 09/19/18 09:08 CONCLUSION: 1. Subcutaneous fat induration and inflammation in the right gluteal region with developing subcutaneous fluid collections characteristic of developing abscess. 2. No evidence of deep pelvic involvement. Assessment and Plan Assessment (1) Abscess of buttock, right: Code(s): L02.31 - Cutaneous abscess of buttock Status: Acute (2) DKA, type 1: Code(s): E10.10 - Type 1 diabetes mellitus with ketoacidosis without coma Status: Chronic Plan Right buttock abscess - Pt is a 23 yo male with IDDM and hx of drug abuse. - Pt presented to the ED at [facility] [place] on [place]18 after he developed pain, redness , and swelling in the right buttock which is reportedly related to his insulin injection site. He had associated fever, chills and high BS. - Pelvis CT (09/19/18): 1. Subcutaneous fat induration and inflammation in the right gluteal region with developing subcutaneous fluid collections characteristic of developing abscess. 2. No evidence of deep pelvic involvement. - ID is following - Pt is on Vancomycin and Zosyn - Blood clx (09/19/18) with 2/4 bottles for GPC, staph coagulase negative. Final culture and SHAUN to follow - DANIEL (09/21/18): - Normal left ventricular size and wall thickness. - The left ventricular systolic function is normal with an estimated ejection fraction in the range of 60-65%. - Left ventricular diastolic function parameters are normal. - No vegetations - Pt underwent I&D of right buttock abscess on 09/21/[address] Barone - Wound care/daily dressing changes - SUpportive care IDDM - NovoLog SSI - Levemir 32 units daily Progress Note: Quality VTE Deep Vein Thrombosis/Pulmonary Embolism Present on Admission: No _ (1) DKA, type 1 Qualifiers: Diabetes mellitus complication detail:
--- NOTE | 2018-09-22 15:14 | P.PNID ---
Subjective Remarks: sp I+D by gen surgery op report noted Mod purulence G stain cw staph BC with coag neg staph Antibiotics: vanco zosyn Allergies/Adverse Reactions: Allergies cefaclor [From Ceclor] Allergy (Severe, Verified 09/19/18 13:35) Hives Objective Vital Signs 09/21/18 16:02 09/21/18 16:15 09/21/18 16:30 Temperature 98.3 F Pulse Rate 88 91 H 91 H Respiratory Rate 18 17 18 Blood Pressure 100/61 95/52 L 96/53 L Pulse Oximetry 96 99 95 09/21/18 16:53 09/21/18 17:00 09/21/18 17:11 Temperature Pulse Rate 97 H 91 H Respiratory Rate 18 18 17 Blood Pressure 109/68 99/52 L Pulse Oximetry 96 95 09/21/18 17:15 09/21/18 17:40 09/21/18 20:00 Temperature 98.5 F 97.1 F L Pulse Rate 100 H 107 H 111 H Respiratory Rate 15 19 20 Blood Pressure 110/72 115/71 128/72 Pulse Oximetry 99 97 98 09/22/18 00:00 09/22/18 08:00 09/22/18 12:00 Temperature 97.8 F 97.4 F L 98.0 F Pulse Rate 105 H 72 100 H Respiratory Rate 18 17 17 Blood Pressure 112/53 L 113/60 118/65 Pulse Oximetry 97 99 97 Intake & Output 09/21/18 09/22/18 09/22/18 18:59 06:59 18:59 Intake Total 150 / 150 2049 300 / 300 Balance 150 / 150 2049 300 / 300 Weight 57.7 kg 57.3 kg Intake: IV 150 / 150 650 / 650 300 / 300 Zosyn 3.375 GM Premix 3.375 gm 50 / 50 150 / 150 50 / 50 In 50 ml @ 100 mls/hr IV.SIG Q6H EMELIA Rx#:[id number] Vancomycin Inj 1,000 MG In NS 100 / 100 500 / 500 250 / 250 Inj 250 ML @ 250 mls/hr IV.SIG Q8H EMELIA Rx#:[id number] Oral 1400 / 1400 Other: # Voids 1 4 09/21/18 15:50 Fluid - Other Gram Stain - Final 09/21/18 15:50 Fluid - Other Wound Culture - Preliminary gram positive cocci 09/19/18 09:35 Blood - Peripheral Aerobic Blood Culture - Final Staphylococcus coag negative 09/19/18 09:35 Blood - Peripheral Anaerobic Blood Culture - Final Staphylococcus epidermidis 09/19/18 09:41 Blood - Peripheral Aerobic Blood Culture - Preliminary No growth in 3 days 09/19/18 09:41 Blood - Peripheral Anaerobic Blood Culture - Preliminary No growth in 3 days 09/21/18 15:50 Fluid - Other Acid Fast Bacilli Smear - Pending 09/21/18 15:50 Fluid - Other Mycobacterial Culture - Pending Lab - Hematology Results 09/21/18 09/22/18 07:00 08:34 CBC w Diff Auto diff final WBC 19.6 H 11.9 H RBC 4.00 L 4.34 L Hgb 12.3 L 13.9 Hct 36.8 L 39.1 MCV 92.0 90.0 MCH 30.7 32.1 MCHC 33.4 35.7 RDW 12.6 12.6 Plt Count 387 356 MPV 7.8 7.6 Neut % (Auto) 83.1 H 65.5 Lymph % (Auto) 9.7 24.3 [place] % (Auto) 6.4 7.7 Eos % (Auto) 0.5 2.2 Baso % (Auto) 0.3 0.3 Neut # (Auto) 16.2 H 7.8 H Lymph # (Auto) 1.9 2.9 [place] # (Auto) 1.3 H 0.9 Eos # (Auto) 0.1 0.3 Baso # (Auto) 0.1 0.0 WBC Differential . . Differential Comment . Auto diff final Lab - Chemistry Results 09/20/18 09/20/18 09/21/18 17:21 23:26 06:20 Sodium Potassium Chloride Carbon Dioxide Anion Gap BUN Creatinine Estimated GFR POC Glucose 167 H 344 H 133 H Random Glucose Calcium 09/21/18 09/21/18 09/21/18 07:00 07:40 11:52 Sodium 137 Potassium 3.5 Chloride 100 Carbon Dioxide 31.1 Anion Gap 6 BUN 10 Creatinine 0.91 Estimated GFR Greater than 89 POC Glucose 152 H 249 H Random Glucose 131 H D Calcium 8.6 09/21/18 09/21/18 09/22/18 16:08 23:54 05:20 Sodium Potassium Chloride Carbon Dioxide Anion Gap BUN Creatinine Estimated GFR POC Glucose 179 H 376 H 256 H Random Glucose Calcium 09/22/18 09/22/18 09/22/18 08:20 08:34 11:15 Sodium 135 L Potassium 4.0 Chloride 98 Carbon Dioxide 29.7 Anion Gap 7 BUN 10 Creatinine 0.90 Estimated GFR Greater than 89 POC Glucose 234 H 351 H Random Glucose 227 H Calcium 9.0 Imaging: ITS Impressions Pelvis CT 09/19/18 09:08 CONCLUSION: 1. Subcutaneous fat induration and inflammation in the right gluteal region with developing subcutaneous fluid collections characteristic of developing abscess. 2. No evidence of deep pelvic involvement. Physical Exam: GENERAL: NAD SKIN: Warm and dry. HEAD: Atraumatic. Normocephalic. EYES: Pupils equal and round. No scleral icterus. No injection or drainage. ENT: Mucous membranes pink and moist. NECK: Trachea midline. No JVD. CARDIOVASCULAR: Regular rate and rhythm. No murmurs RESPIRATORY: No accessory muscle use. Clear to auscultation. Breath sounds equal bilaterally. GASTROINTESTINAL: Abdomen soft, non-tender, nondistended. Hepatic and splenic margins not palpable. MUSCULOSKELETAL: Extremities without clubbing, cyanosis, or edema. R buttock: large dressin in palce, no eryheam or induration peripherally to the dressing NEUROLOGICAL: Awake and alert. Non focal PSYCHIATRIC: Appropriate mood and affect; Assessment and Plan - Plan R buttock abscess, Staph aw insulin injections Bacteremia, coag negative staph - doubb t clin significance IDDM cont vanco dc zosyn anticipate transition to po abx per cls results will dc home tomorrow if cont to improve clinically
[2018-09-22] MEDS ORDERED: Pharmacy Ordered Lab Info OTHER ONE (16:45)
[2018-09-23] MEDS: Vancomycin Inj 1,000 MG in Sodium Chlor 0.9% Inj 250 ML IV.SIG SCH ×3 (00:14→17:42)
[2018-09-23] MEDS: Insulin NovoLOG Aspart Correctional Sugar Inj SQ SCH ×4 (00:14→17:41)
[2018-09-23] MEDS: HYDROmorphone PF Inj 1 MG/ML Ampul IV.PUSH PRN ×5 (01:25→22:29)
[2018-09-23 07:35] LABS: Baso # (Auto) 0.1 th/mm3 (0.0-0.2); Baso % (Auto) 0.5 % (0.0-2.0); Eos # (Auto) 0.3 th/mm3 (0.0-0.4); Eos % (Auto) 3.1 % (0.0-4.0); Hemoglobin 13.7 gm/dL (13.0-17.0); Lymph # (Auto) 2.6 th/mm3 (1.0-4.8); Lymph % (Auto) 26.8 % (9.0-44.0); Mean Corpuscular HGB Conc 35.2 % (32.0-36.0); Mean Corpuscular Hemoglobin 31.9 pg (27.0-34.0); Mean Corpuscular Volume 90.4 fL (80.0-100.0); Mono # (Auto) 0.5 th/mm3 (0.0-0.9); Mono % (Auto) 5.6 % (0.0-8.0); Neut # (Auto) 6.2 th/mm3 (1.8-7.7); Platelet Count 365 th/mm3 (150-450); Red Blood Count 4.31 mil/mm3 (4.50-5.90); Red Cell Distribution Width 12.5 % (11.6-17.2); White Blood Count 9.7 th/mm3 (4.0-11.0)
[2018-09-23 08:01] LABS: Anion Gap 5 meq/L (5-15); Blood Urea Nitrogen 9 mg/dL (7-18); Calcium 8.8 mg/dL (8.5-10.1); Carbon Dioxide 31.9 meq/L (21.0-32.0); Chloride 99 meq/L (98-107); Glomerular Filtration Rate Greater Than 89 mL/min (>89); Glucose,Random 337 mg/dL (74-106); Potassium 4.3 meq/L (3.5-5.1); Sodium 136 meq/L (136-145)
[2018-09-23] MEDS: Gabapentin 400 MG Capsule PO SCH ×3 (08:25→17:42)
[2018-09-23] MEDS: clonazePAM 1 MG Tablet PO SCH ×3 (08:25→17:42)
[2018-09-23] MEDS: Senna/Docusate Sodium 8.6/50 MG Tablet PO SCH ×2 (08:26→22:38)
[2018-09-23] MEDS: Insulin Detemir Inj 1,000 UNIT/10 ML Vial SQ SCH (08:28)
--- NOTE | 2018-09-23 09:48 | P.DS ---
DS: Providers Date of admission: 09/19/18 12:07 Primary care physician: Frank Matthews MD Consults: 09/20/18 10:40 Consult to Infectious Diseases Routine Consulting Provider: Zehra Pacheco Reason for Consultation: FHCP-ID leukocytosis with cellulitis vs abscess rt buttocks Notified:: Service Spoke with:: ELLIS Date Notified:: 09/20/18 Time Notified:: 10:46 Ordering Provider: CLAIRE 09/21/18 09:44 Consult to Cardiology Routine Consulting Provider: Laith Gustafson Does the patient have a Cardiovascular Operating Room Nurse who follows them?: No Preferred [employer] Scientist:: Laith Gustafson Reason for Consultation: CP cardiology abscess buttocks elevation WBC count abscess in DM from dirty needle stick sympotms about 2 weeks ? endocarditis consider DANIEL Notified:: Office Spoke with:: [place] Date Notified:: 09/21/18 Time Notified:: 10:56 Ordering Provider: CLAIRE 09/21/18 12:13 Consult to General Surgery Routine Consulting Provider: Minor Marley Preferred [employer] Manager:: Omar Penny Reason for Consultation: R buttock abscess with sepsis. Diabettic pt Notified:: Service Spoke with:: EZEQUIEL Date Notified:: 09/21/18 Time Notified:: 12:55 Ordering Provider: ARELI Brief History from admission: HPI narrative: The patient is a 23-year-old male who presents to the ED with a 3 -day history of a developing skin infection. He is a type I diabetic and uses pen needles for insulin injections multiple times daily. 3 days ago, he noticed redness around an injection site on his right buttock, and since then has developed warmth, induration, and severe pain at the site. He is unable to bear weight on this part of his body. This has occurred one time in the past about 3 years ago and required drainage. He feels well otherwise and denies fevers, chills, body aches, dizziness, fatigue, nausea, vomiting, or pain anywhere else. He reports that his last HbA1c was 6.1 and his blood sugars have been well [place] [id number]. He denies any other medical history. On exam has painful lumps rt pelvic buttocks area ,i do not believe it needs surgical drainage at this time ,i did discuss with general surgery and if it does not respond to antibiotics will call them . Patient does have slight increase wbc count and cultures taken. DS: Diagnosis Discharge Diagnosis (1) Abscess of buttock, right: Status: Acute (2) DKA, type 1: Status: Chronic DS: Summary Right buttock abscess - Pt is a 23 yo male with IDDM and hx of drug abuse. - Pt presented to the ED at [facility] [place] [place] on 09/19/18 after he developed pain, redness , and swelling in the right buttock which is reportedly related to his insulin injection site. He had associated fever, chills and high BS. - Pelvis CT (09/19/18): 1. Subcutaneous fat induration and inflammation in the right gluteal region with developing subcutaneous fluid collections characteristic of developing abscess. 2. No evidence of deep pelvic involvement. - Pt is on Vancomycin (09/20 - present) and Zosyn (09/19 - 09/22) - Blood clx (09/19/18) with 2/4 bottles for Staphylococcus epidermis, staph coagulase negative. 2/4 bottles no growth at 3 days - Fluid culture (09/21/18) MRSA - DANIEL (09/21/18): - Normal left ventricular size and wall thickness. - The left ventricular systolic function is normal with an estimated ejection fraction in the range of 60-65%. - Left ventricular diastolic function parameters are normal. - No vegetations - Pt underwent I&D of right buttock abscess on 09/21/[address] Barone - ID is following -> plan to DC today with PO abx per ID - Wound care/daily dressing changes - Supportive care IDDM - NovoLog SSI - Levemir 32 units daily Time Spent with Patient Total time spent providing and/or coordinating discharge services: Quality: VTE Deep Vein Thrombosis/Pulmonary Embolism Present on Admission: No Exam Narrative Exam Narrative: General: NAD, AAOx3 Chest: CTA Cardiac: Regular Abd: +BS, soft ND/NT Ext: No edema Results Labs on day of discharge: Labs from last 24 hours 09/23/18 09/23/18 09/23/18 07:10 07:10 07:07 WBC 9.7 RBC 4.31 L Hgb 13.7 Hct 39.0 MCV 90.4 MCH 31.9 MCHC 35.2 RDW 12.5 Plt Count 365 MPV 7.0 Neut % (Auto) 64.0 Lymph % (Auto) 26.8 [place] % (Auto) 5.6 Eos % (Auto) 3.1 Baso % (Auto) 0.5 Neut # (Auto) 6.2 Lymph # (Auto) 2.6 [place] # (Auto) 0.5 Eos # (Auto) 0.3 Baso # (Auto) 0.1 WBC Differential . Differential Comment Auto diff final Sodium 136 Potassium 4.3 Chloride 99 Carbon Dioxide 31.9 Anion Gap 5 BUN 9 Creatinine 0.87 Estimated GFR Greater than 89 POC Glucose 308 H Random Glucose 337 H D Calcium 8.8 Vancomycin Trough 09/23/18 09/22/18 09/22/18 00:14 17:43 17:12 WBC RBC Hgb Hct MCV MCH MCHC RDW Plt Count MPV Neut % (Auto) Lymph % (Auto) [place] % (Auto) Eos % (Auto) Baso % (Auto) Neut # (Auto) Lymph # (Auto) [place] # (Auto) Eos # (Auto) Baso # (Auto) WBC Differential Differential Comment Sodium Potassium Chloride Carbon Dioxide Anion Gap BUN Creatinine Estimated GFR POC Glucose 138 H 92 Random Glucose Calcium Vancomycin Trough 10.7 H 09/22/18 11:15 WBC RBC Hgb Hct MCV MCH MCHC RDW Plt Count MPV Neut % (Auto) Lymph % (Auto) [place] % (Auto) Eos % (Auto) Baso % (Auto) Neut # (Auto) Lymph # (Auto) [place] # (Auto) Eos # (Auto) Baso # (Auto) WBC Differential Differential Comment Sodium Potassium Chloride Carbon Dioxide Anion Gap BUN Creatinine Estimated GFR POC Glucose 351 H Random Glucose Calcium Vancomycin Trough Preliminary micro results at discharge 09/21/18 15:50 Wound Culture - Preliminary Fluid - Other gram positive cocci 09/19/18 09:41 Aerobic Blood Culture - Preliminary Blood - Peripheral No growth in 3 days Anaerobic Blood Culture - Preliminary No growth in 3 days Impressions ITS Impressions Pelvis CT 09/19/18 09:08 CONCLUSION: 1. Subcutaneous fat induration and inflammation in the right gluteal region with developing subcutaneous fluid collections characteristic of developing abscess. 2. No evidence of deep pelvic involvement. Discharge Plan Discharge Disposition Patient Disposition: Discharge Home Discharge Condition Condition: Stable Discharge Details Anticipated Discharge Date: 09/23/18 Physicians Team Primary Care Provider: Frank Matthews Attending Provider: Alex Garcia Other Providers: Zehra Pacheco ; Laith Gustafson ; Minor Marley Rxs /Orders / Referrals /Forms Prescriptions: Continue insulin glargine [Lantus U-100 Insulin] 100 unit/mL Solution 32 unit SUBCUT DAILY RF: 0 gabapentin 800 mg Tablet 800 mg PO TID RF: 0 insulin aspart U-100 [Novolog U-100 Insulin aspart] 100 unit/mL Solution 1 - 12 unit SUBCUT DIRECTED RF: 0 clonazepam [Klonopin] 2 mg Tablet 2 mg PO TID RF: 0 quetiapine [Seroquel XR] 300 mg Tablet Extended Release 24 Hr 300 mg PO QPM RF: 0 Referrals: Frank Matthews MD [Primary Care Provider] - See Instructions (follow up in 1 week) Status ED Status: Left Department
--- NOTE | 2018-09-23 12:30 | P.PNIM ---
Subjective Interval history: Right buttock continues to be tender Physical Exam Vital signs: Last Vital Signs Temp 97.8 F 09/23/18 08:00 Pulse 83 09/23/18 08:00 Resp 18 09/23/18 08:00 BP 110/60 09/23/18 08:00 Pulse Ox 98 09/23/18 08:00 Narrative: General: NAD, AAOx3 SKIN: post- op dressing dry and intact Chest: CTA Cardiac: Regular Abd: +BS, soft ND/NT Ext: No edema Results Labs CBC & Chem 7: 09/25/18 06:51 09/26/18 05:43 Assessment and Plan Assessment (1) Abscess of buttock, right: Code(s): L02.31 - Cutaneous abscess of buttock Status: Acute (2) DKA, type 1: Code(s): E10.10 - Type 1 diabetes mellitus with ketoacidosis without coma Status: Chronic Plan Right buttock abscess - Pt is a 23 yo male with IDDM and hx of drug abuse. - Pt presented to the ED at [facility] [place] on 09/19/18 after he developed pain, redness , and swelling in the right buttock which is reportedly related to his insulin injection site. He had associated fever, chills and high BS. - Pelvis CT (09/19/18): 1. Subcutaneous fat induration and inflammation in the right gluteal region with developing subcutaneous fluid collections characteristic of developing abscess. 2. No evidence of deep pelvic involvement. - Pt is on Vancomycin (09/20 - present) and Zosyn (09/19 - 09/22) - Blood clx (09/19/18) with 2/4 bottles for Staphylococcus epidermis, staph coagulase negative. 2/4 bottles no growth at 3 days - Fluid culture (09/21/18) MRSA await sensitivity - DANIEL (09/21/18): - Normal left ventricular size and wall thickness. - The left ventricular systolic function is normal with an estimated ejection fraction in the range of 60-65%. - Left ventricular diastolic function parameters are normal. - No vegetations - Pt underwent I&D of right buttock abscess on 09/21/[address] Barone - ID is following -> plan to DC after sensitivity resulted and ID gives final abx recommendations - Wound care/daily dressing changes per general surgery: Daily dressing changes. stating 09/22/18. Remove old dressing and packing. Then pack wound with 0.5 inch iodoform packing covered with 4x4 dressing. - Supportive care IDDM - NovoLog SSI - Levemir 32 units daily Attending Attestation The exam, history, and the medical decision-making described in the above note were completed with the assistance of the mid-level provider. I reviewed and agree with the findings presented. I attest that I had a [id number] encounter with the patient on the same day, and personally performed and documented my assessment and findings in the medical record. Patient examined. Assessment and plan formulated with Yudelka Pinzon PA-C. I agree with the above. Progress Note: Quality VTE Deep Vein Thrombosis/Pulmonary Embolism Present on Admission: No _ (1) DKA, type 1 Qualifiers: Diabetes mellitus complication detail:
--- NOTE | 2018-09-23 12:36 | P.DCO ---
Diagnosis (1) Abscess of buttock, right: Status: Acute (2) DKA, type 1: Status: Chronic Home Health Nursing Order: Wound care and dressing changes Instructions: Wound care per general surgery. daily dressing changes. stating 09/22/18. Remove old dressing and packing. Then pack wound with 0.5 inch iodoform packing covered with 4x4 dressing. Case Management Consult Case Management Consult-Home Health: Yes I have seen patient Romulo Juarez on 09/23/18. My clinical findings support the need for the requested home health care services because: Medication compliance is questionable and Limited ability to care for self I certify that my clinical findings support that this patient is homebound because: Impaired cognitive ability/safety _ (1) DKA, type 1 Qualifiers: Diabetes mellitus complication detail:
--- NOTE | 2018-09-23 13:22 | P.PNID ---
Subjective Remarks: no fever Improving but still persistent R butttock pain MRSA in culture WBC back to nl Antibiotics: vanco Allergies/Adverse Reactions: Allergies cefaclor [From Ceclor] Allergy (Severe, Verified 09/19/18 13:35) Hives Objective Vital Signs 09/22/18 15:29 09/22/18 20:00 09/22/18 23:18 Temperature 98.5 F 98.2 F Pulse Rate 108 H 103 H Respiratory Rate 17 19 18 Blood Pressure 124/44 L 120/85 Pulse Oximetry 97 98 09/23/18 00:00 09/23/18 02:55 09/23/18 08:00 Temperature 98.4 F 97.8 F Pulse Rate 90 83 Respiratory Rate 19 16 18 Blood Pressure 114/58 L 110/60 Pulse Oximetry 99 98 09/23/18 12:00 Temperature 98.4 F Pulse Rate 98 H Respiratory Rate 17 Blood Pressure 103/55 L Pulse Oximetry 98 Intake & Output 09/22/18 09/23/18 09/23/18 18:59 06:59 18:59 Intake Total 2099 740 / 740 250 / 250 Output Total 2 / 2 Balance 2099 738 / 738 250 / 250 Weight 57.3 kg 59.6 kg Intake: IV 300 / 300 500 / 500 250 / 250 Zosyn 3.375 GM Premix 3.375 gm 50 / 50 In 50 ml @ 100 mls/hr IV.SIG Q6H EMELIA Rx#:[id number] Vancomycin Inj 1,000 MG In NS 250 / 250 500 / 500 250 / 250 Inj 250 ML @ 250 mls/hr IV.SIG Q8H EMELIA Rx#:[id number] Oral 1800 / 1800 240 / 240 Output: Urine 2 / 2 Other: # Voids 3 1 09/21/18 15:50 Fluid - Other Gram Stain - Final 09/21/18 15:50 Fluid - Other Wound Culture - Final S. aureus MRSA 09/21/18 15:50 Fluid - Other Acid Fast Bacilli Smear - Pending 09/21/18 15:50 Fluid - Other Mycobacterial Culture - Pending 09/19/18 09:41 Blood - Peripheral Aerobic Blood Culture - Preliminary No growth in 4 days 09/19/18 09:41 Blood - Peripheral Anaerobic Blood Culture - Preliminary No growth in 4 days 09/19/18 09:35 Blood - Peripheral Aerobic Blood Culture - Final Staphylococcus coag negative 09/19/18 09:35 Blood - Peripheral Anaerobic Blood Culture - Final Staphylococcus epidermidis Lab - Hematology Results 09/22/18 09/23/18 08:34 07:10 WBC 11.9 H 9.7 RBC 4.34 L 4.31 L Hgb 13.9 13.7 Hct 39.1 39.0 MCV 90.0 90.4 MCH 32.1 31.9 MCHC 35.7 35.2 RDW 12.6 12.5 Plt Count 356 365 MPV 7.6 7.0 Neut % (Auto) 65.5 64.0 Lymph % (Auto) 24.3 26.8 [place] % (Auto) 7.7 5.6 Eos % (Auto) 2.2 3.1 Baso % (Auto) 0.3 0.5 Neut # (Auto) 7.8 H 6.2 Lymph # (Auto) 2.9 2.6 [place] # (Auto) 0.9 0.5 Eos # (Auto) 0.3 0.3 Baso # (Auto) 0.0 0.1 WBC Differential . . Differential Comment Auto diff final Auto diff final Lab - Chemistry Results 09/21/18 09/21/18 09/22/18 16:08 23:54 05:20 Sodium Potassium Chloride Carbon Dioxide Anion Gap BUN Creatinine Estimated GFR POC Glucose 179 H 376 H 256 H Random Glucose Calcium 09/22/18 09/22/18 09/22/18 08:20 08:34 11:15 Sodium 135 L Potassium 4.0 Chloride 98 Carbon Dioxide 29.7 Anion Gap 7 BUN 10 Creatinine 0.90 Estimated GFR Greater than 89 POC Glucose 234 H 351 H Random Glucose 227 H Calcium 9.0 09/22/18 09/23/18 09/23/18 17:43 00:14 07:07 Sodium Potassium Chloride Carbon Dioxide Anion Gap BUN Creatinine Estimated GFR POC Glucose 92 138 H 308 H Random Glucose Calcium 09/23/18 09/23/18 07:10 11:48 Sodium 136 Potassium 4.3 Chloride 99 Carbon Dioxide 31.9 Anion Gap 5 BUN 9 Creatinine 0.87 Estimated GFR Greater than 89 POC Glucose 91 Random Glucose 337 H D Calcium 8.8 Imaging: ITS Impressions Pelvis CT 09/19/18 09:08 CONCLUSION: 1. Subcutaneous fat induration and inflammation in the right gluteal region with developing subcutaneous fluid collections characteristic of developing abscess. 2. No evidence of deep pelvic involvement. Physical Exam: GENERAL: NAD SKIN: Warm and dry. no rash HEAD: Atraumatic. Normocephalic. EYES: Pupils equal and round. No scleral icterus. No injection or drainage. ENT: Mucous membranes pink and moist. CARDIOVASCULAR: Regular rate and rhythm. No murmurs RESPIRATORY: No accessory muscle use. Clear to auscultation. Breath sounds equal bilaterally. GASTROINTESTINAL: Abdomen soft, non-tender, nondistended. Hepatic and splenic margins not palpable. MUSCULOSKELETAL: Extremities without clubbing, cyanosis, or edema. R buttock: dressin in palce, Induration and marked tendersnn aroun 8-11 O' clock of the wound serosang drainage on the dressing NEUROLOGICAL: Awake and alert. Non focal PSYCHIATRIC: Appropriate mood and affect; Assessment and Plan - Plan R buttock abscess, Staph aw insulin injections Bacteremia, coag negative staph - doubb t clin significance IDDM cont vanco OK to dc home on clindamycin 300 mg PO for another 10 days elena Garcia
[2018-09-23] MEDS: HYDROmorphone PF Inj 2 MG/ML Vial IV.PUSH PRN (14:18)
[2018-09-24] MEDS: Vancomycin Inj 1,000 MG in Sodium Chlor 0.9% Inj 250 ML IV.SIG SCH ×3 (00:02→17:21)
[2018-09-24] MEDS: Insulin NovoLOG Aspart Correctional Sugar Inj SQ SCH ×5 (00:03→21:30)
[2018-09-24] MEDS: HYDROmorphone PF Inj 1 MG/ML Ampul IV.PUSH PRN ×5 (02:17→23:15)
[2018-09-24 07:48] LABS: Glomerular Filtration Rate Greater Than 89 mL/min (>89)
[2018-09-24] MEDS ORDERED: Pharmacy Ordered Lab Info OTHER ONE (08:45)
[2018-09-24] MEDS: Gabapentin 400 MG Capsule PO SCH ×3 (09:45→17:21)
[2018-09-24] MEDS: clonazePAM 1 MG Tablet PO SCH ×3 (09:45→17:21)
[2018-09-24] MEDS: Senna/Docusate Sodium 8.6/50 MG Tablet PO SCH ×2 (09:45→21:27)
[2018-09-24] MEDS: Insulin Detemir Inj 1,000 UNIT/10 ML Vial SQ SCH (09:58)
--- NOTE | 2018-09-24 13:19 | P.PNIM ---
Subjective Interval history: Pt c/o continued severe pain at right buttock Physical Exam Vital signs: Last Vital Signs Temp 98.2 F 09/24/18 08:05 Pulse 89 09/24/18 08:05 Resp 16 09/24/18 11:04 BP 112/54 L 09/24/18 08:05 Pulse Ox 95 09/24/18 08:05 Narrative: General: NAD, AAOx3 SKIN: post- op dressing dry and intact continued significant induration at right buttock Chest: CTA Cardiac: Regular Abd: +BS, soft ND/NT Ext: No edema Results Labs CBC & Chem 7: 09/25/18 06:51 09/26/18 05:43 Assessment and Plan Assessment (1) Abscess of buttock, right: Code(s): L02.31 - Cutaneous abscess of buttock Status: Acute (2) DKA, type 1: Code(s): E10.10 - Type 1 diabetes mellitus with ketoacidosis without coma Status: Chronic Plan Right buttock abscess - Pt is a 23 yo male with IDDM and hx of drug abuse. - [place] [facility] [place] after he developed pain, redness , and swelling in the right buttock which is reportedly related to his insulin injection site. He had associated fever, chills and high BS. - Pelvis CT (09/19/18): 1. Subcutaneous fat induration and inflammation in the right gluteal region with developing subcutaneous fluid collections characteristic of developing abscess. 2. No evidence of deep pelvic involvement. - Vancomycin (09/20 - present) - Zosyn (09/19 - 09/22) - Blood clx (09/19/18) with 2/4 bottles for Staphylococcus epidermis, staph coagulase negative. 2/4 bottles no growth at 3 days - Fluid culture (09/21/18) MRSA await sensitivity - DANIEL (09/21/18): - Normal left ventricular size and wall thickness. - The left ventricular systolic function is normal with an estimated ejection fraction in the range of 60-65%. - Left ventricular diastolic function parameters are normal. - No vegetations - Pt underwent I&D of right buttock abscess on 09/21/[address] Barone - Pt examined at the bedside together with Infectious Disease, Dr. Pacheco, (09/24/18). - Pt with increased pain and induration at right buttock - obtain soft tissue US to evaluate for recurrent abscess - Request surgical re-evaluation for possible repeat I&D - Wound care/daily dressing changes per general surgery: Daily dressing changes. stating 09/22/18. Remove old dressing and packing. Then pack wound with 0.5 inch iodoform packing covered with 4x4 dressing. - Supportive care IDDM - NovoLog SSI - Levemir 32 units daily Progress Note: Quality VTE Deep Vein Thrombosis/Pulmonary Embolism Present on Admission: No _ (1) DKA, type 1 Qualifiers: Diabetes mellitus complication detail:
--- NOTE | 2018-09-24 14:22 | P.PNID ---
Subjective Remarks: no fever he is doing worse as far as pain He cant wait bear on RLE and ambulates with a walker Antibiotics: vanco Allergies/Adverse Reactions: Allergies cefaclor [From Ceclor] Allergy (Severe, Verified 09/19/18 13:35) Hives Objective Vital Signs 09/23/18 16:00 09/23/18 20:00 09/24/18 00:00 Temperature 97.9 F 98.1 F 98.2 F Pulse Rate 95 H 84 98 H Respiratory Rate 18 18 18 Blood Pressure 127/68 129/78 92/54 L Pulse Oximetry 98 100 95 09/24/18 08:05 09/24/18 09:48 09/24/18 11:04 Temperature 98.2 F Pulse Rate 89 Respiratory Rate 16 18 16 Blood Pressure 112/54 L Pulse Oximetry 95 09/24/18 11:30 09/24/18 12:40 09/24/18 13:53 Temperature 98.7 F Pulse Rate 119 H Respiratory Rate 16 16 18 Blood Pressure 119/79 Pulse Oximetry 99 Intake & Output 09/23/18 09/24/18 09/24/18 18:59 06:59 18:59 Intake Total 250 / 250 760 / 760 250 / 250 Output Total 0 / 0 Balance 250 / 250 760 / 760 250 / 250 Weight 59.6 kg Intake: IV 250 / 250 500 / 500 250 / 250 Vancomycin Inj 1,000 MG In NS 250 / 250 500 / 500 250 / 250 Inj 250 ML @ 250 mls/hr IV.SIG Q8H EMELIA Rx#:[id number] Oral 260 / 260 Output: Emesis 0 / 0 Other: # Voids 2 Date of Last Bowel Movement 09/23/18 09/19/18 09:41 Blood - Peripheral Aerobic Blood Culture - Final No growth in 5 days 09/19/18 09:41 Blood - Peripheral Anaerobic Blood Culture - Final No growth in 5 days 09/21/18 15:50 Fluid - Other Gram Stain - Final 09/21/18 15:50 Fluid - Other Wound Culture - Final S. aureus MRSA 09/21/18 15:50 Fluid - Other Acid Fast Bacilli Smear - Pending 09/21/18 15:50 Fluid - Other Mycobacterial Culture - Pending 09/19/18 09:35 Blood - Peripheral Aerobic Blood Culture - Final Staphylococcus coag negative 09/19/18 09:35 Blood - Peripheral Anaerobic Blood Culture - Final Staphylococcus epidermidis Lab - Hematology Results 09/23/18 07:10 WBC 9.7 RBC 4.31 L Hgb 13.7 Hct 39.0 MCV 90.4 MCH 31.9 MCHC 35.2 RDW 12.5 Plt Count 365 MPV 7.0 Neut % (Auto) 64.0 Lymph % (Auto) 26.8 [place] % (Auto) 5.6 Eos % (Auto) 3.1 Baso % (Auto) 0.5 Neut # (Auto) 6.2 Lymph # (Auto) 2.6 [place] # (Auto) 0.5 Eos # (Auto) 0.3 Baso # (Auto) 0.1 WBC Differential . Differential Comment Auto diff final Lab - Chemistry Results 09/22/18 09/23/18 09/23/18 17:43 00:14 07:07 Sodium Potassium Chloride Carbon Dioxide Anion Gap BUN Creatinine Estimated GFR POC Glucose 92 138 H 308 H Random Glucose Calcium 09/23/18 09/23/18 09/23/18 07:10 11:48 17:40 Sodium 136 Potassium 4.3 Chloride 99 Carbon Dioxide 31.9 Anion Gap 5 BUN 9 Creatinine 0.87 Estimated GFR Greater than 89 POC Glucose 91 116 H Random Glucose 337 H D Calcium 8.8 09/23/18 09/24/18 09/24/18 22:35 06:00 06:53 Sodium Potassium Chloride Carbon Dioxide Anion Gap BUN Creatinine 0.71 Estimated GFR Greater than 89 POC Glucose 317 H 149 H Random Glucose Calcium 09/24/18 11:49 Sodium Potassium Chloride Carbon Dioxide Anion Gap BUN Creatinine Estimated GFR POC Glucose 287 H Random Glucose Calcium Imaging: ITS Impressions Pelvis CT 09/19/18 09:08 CONCLUSION: 1. Subcutaneous fat induration and inflammation in the right gluteal region with developing subcutaneous fluid collections characteristic of developing abscess. 2. No evidence of deep pelvic involvement. Physical Exam: GENERAL: NAD SKIN: Warm and dry. no rash HEAD: Atraumatic. Normocephalic. EYES: Pupils equal and round. No scleral icterus. No injection or drainage. ENT: Mucous membranes pink and moist. CARDIOVASCULAR: Regular rate and rhythm. No murmurs RESPIRATORY: No accessory muscle use. Clear to auscultation. Breath sounds equal bilaterally. GASTROINTESTINAL: Abdomen soft, non-tender, nondistended. Hepatic and splenic margins not palpable. MUSCULOSKELETAL: Extremities without clubbing, cyanosis, or edema. R buttock: packing in place, some purulence noted on the packing. Pt dose not want packing to be removed THere is more induration spreading medially and the area is non fluctuant and exquisetely tender to palpation NEUROLOGICAL: Awake and alert. Non focal PSYCHIATRIC: Appropriate mood and affect; Assessment and Plan - Plan R buttock abscess, MRSA S clinda - worsening pain ? more abscesses aw insulin injections Bacteremia, coag negative staph - doubb t clin significance IDDM US cont vanco will hold off on dc will ask surgery to re-evaluate dw Dr Garcia
--- NOTE | 2018-09-24 15:14 | US ---
EXAM DATE: 09/24/2018 2:54 PM EST AGE/SEX: 23 years / Male INDICATIONS: Abscess, right buttock. Post I&D 09/21/18. CLINICAL DATA: This is the patient's initial encounter. Patient reports that signs and symptoms have been present for 1 week and indicates a pain score of 4/10. MEDICAL/SURGICAL HISTORY: Diabetes mellitus type I. MRSA. Anxiety. . Right gluteal Incision an d drainage. COMPARISON: [facility], CT PELVIS W CONTRAST, 09/19/2018. . FINDINGS: Grayscale and Doppler ultrasound imaging of the right gluteal region documents a subcutaneous hypoech oic material that in total measures approximately 4.6 x 1.7 cm x 3.7. There is hyperemia. An area of shadowing is associated with wound packing material. These findings are in the subcutaneous fat super ficial to the gluteus ann-marie muscle. CONCLUSION: There is a small amount of complex fluid in the right gluteal region in the subcutaneous fat with angélica surements given above. However, no well-defined easily drainable abscess is seen. Electronically signed by: Silver Gerard MD Board Certified Radiologist 09/24/2018 3:13 PM EST
[2018-09-24] MEDS: HYDROmorphone PF Inj 2 MG/ML Vial IV.PUSH PRN (15:29)
[2018-09-25] MEDS: Vancomycin Inj 1,000 MG in Sodium Chlor 0.9% Inj 250 ML IV.SIG SCH ×3 (01:40→16:27)
[2018-09-25] MEDS: HYDROmorphone PF Inj 1 MG/ML Ampul IV.PUSH PRN (03:13)
[2018-09-25 07:12] LABS: Baso % (Auto) 0.8 % (0.0-2.0); Eos # (Auto) 0.3 th/mm3 (0.0-0.4); Eos % (Auto) 4.8 % (0.0-4.0); Hematocrit 37.3 % (39.0-51.0); Hemoglobin 12.9 gm/dL (13.0-17.0); Lymph # (Auto) 2.6 th/mm3 (1.0-4.8); Lymph % (Auto) 45.7 % (9.0-44.0); Mean Corpuscular HGB Conc 34.5 % (32.0-36.0); Mean Corpuscular Hemoglobin 31.4 pg (27.0-34.0); Mean Corpuscular Volume 90.9 fL (80.0-100.0); Mean Platelet Volume 6.9 fL (7.0-11.0); Mono # (Auto) 0.4 th/mm3 (0.0-0.9); Mono % (Auto) 6.4 % (0.0-8.0); Neut # (Auto) 2.4 th/mm3 (1.8-7.7); Neut % (Auto) 42.3 % (16.0-70.0); Platelet Count 368 th/mm3 (150-450); Red Cell Distribution Width 12.5 % (11.6-17.2); White Blood Count 5.7 th/mm3 (4.0-11.0)
[2018-09-25 07:31] LABS: Anion Gap 7 meq/L (5-15); Blood Urea Nitrogen 9 mg/dL (7-18); Calcium 8.7 mg/dL (8.5-10.1); Carbon Dioxide 27.7 meq/L (21.0-32.0); Chloride 103 meq/L (98-107); Glomerular Filtration Rate Greater Than 89 mL/min (>89); Glucose,Random 243 mg/dL (74-106); Potassium 3.6 meq/L (3.5-5.1); Sodium 138 meq/L (136-145)
[2018-09-25] MEDS: Insulin Detemir Inj 1,000 UNIT/10 ML Vial SQ SCH (10:04)
[2018-09-25] MEDS: Insulin NovoLOG Aspart Correctional Sugar Inj SQ SCH ×4 (10:04→21:38)
[2018-09-25] MEDS: Gabapentin 400 MG Capsule PO SCH ×3 (10:05→18:27)
[2018-09-25] MEDS: Senna/Docusate Sodium 8.6/50 MG Tablet PO SCH ×2 (10:06→21:38)
[2018-09-25] MEDS: clonazePAM 1 MG Tablet PO SCH ×2 (10:06→13:15)
--- NOTE | 2018-09-25 11:18 | P.PNIM ---
Subjective Interval history: Patient continues to report pain in the Right buttock Patient appears drowsy/lethargic Physical Exam Vital signs: Last Vital Signs Temp 97.8 F 09/25/18 08:00 Pulse 84 09/25/18 08:00 Resp 17 09/25/18 08:00 BP 91/49 L 09/25/18 08:00 Pulse Ox 95 09/25/18 08:00 Narrative: General: NAD, AAOx3 SKIN: post- op dressing dry and intact less erythema today, continued induration at right buttock Chest: CTA Cardiac: Regular Abd: +BS, soft ND/NT Ext: No edema Results Labs CBC & Chem 7: 09/25/18 06:51 09/26/18 05:43 Assessment and Plan Assessment (1) Abscess of buttock, right: Code(s): L02.31 - Cutaneous abscess of buttock Status: Acute (2) DKA, type 1: Code(s): E10.10 - Type 1 diabetes mellitus with ketoacidosis without coma Status: Chronic Plan Right buttock abscess - Pt is a 23 yo male with IDDM and hx of drug abuse. - Pt presented to the ED at [facility] [place]18 after he developed pain, redness , and swelling in the right buttock which is reportedly related to his insulin injection site. He had associated fever, chills and high BS. - Pelvis CT (09/19/18): 1. Subcutaneous fat induration and inflammation in the right gluteal region with developing subcutaneous fluid collections characteristic of developing abscess. 2. No evidence of deep pelvic involvement. - Vancomycin (09/20 - present) - Zosyn (09/19 - 09/22) - Blood clx (09/19/18) with 2/4 bottles for Staphylococcus epidermis, staph coagulase negative. 2/4 bottles no growth at 3 days - Fluid culture (09/21/18) MRSA await sensitivity - DANIEL (09/21/18): - Normal left ventricular size and wall thickness. - The left ventricular systolic function is normal with an estimated ejection fraction in the range of 60-65%. - Left ventricular diastolic function parameters are normal. - No vegetations - Pt underwent I&D of right buttock abscess on 09/21/[address] Barone - Pt examined at the bedside together with Infectious Disease, Dr. Pacheco, (09/24/18). - Pt with increased pain and induration at right buttock 09/24/18 - obtain soft tissue US to evaluate for recurrent abscess - Soft Tissue Ultrasound 09/24/18 There is a small amount of complex fluid in the right gluteal region in the subcutaneous fat with measurements given above. However, no well-defined easily drainable abscess is seen. - 09/24/18 Dr. Garcia discussed with Dr. Barone. Per Dr. Barone no need for further surgical intervention at this time. Continue daily dressing change with packing - Wound care/daily dressing changes per general surgery: Daily dressing changes. stating 09/22/18. Remove old dressing and packing. Then pack wound with 0.5 inch iodoform packing covered with 4x4 dressing. - Supportive care Patient appeared drowsy/lethargic - will decrease home clonazepam to 1 mg PO TID PRN - will decrease Dilaudid to 0.5 mg IV Q8H for breakthrough pain - Dr. Garcia discussed with patient that we will continue to decrease Dilaudid and will not send patient home on IV pain medication. IDDM - NovoLog SSI - Levemir 32 units daily Attending Attestation The exam, history, and the medical decision-making described in the above note were completed with the assistance of the mid-level provider. I reviewed and agree with the findings presented. I attest that I had a [id number] encounter with the patient on the same day, and personally performed and documented my assessment and findings in the medical record. Patient examined. Assessment and plan formulated with Yudelka Pinzon PA-C. I agree with the above. Progress Note: Quality VTE Deep Vein Thrombosis/Pulmonary Embolism Present on Admission: No _ (1) DKA, type 1 Qualifiers: Diabetes mellitus complication detail:
[2018-09-25] MEDS: HYDROmorphone PF Inj 0.5 MG/0.5 ML Syringe IV.PUSH PRN (16:27)
--- NOTE | 2018-09-25 16:41 | P.PNGS ---
Subjective Patient reports: still having pain Physical Exam Vital signs: Vital Signs 09/24/18 17:27 09/24/18 19:44 09/24/18 20:00 Temperature 97.1 F L Pulse Rate 102 H Respiratory Rate 18 17 18 Blood Pressure 131/60 Pulse Oximetry 97 09/24/18 21:27 09/24/18 21:57 09/24/18 23:45 Temperature Pulse Rate Respiratory Rate 18 18 18 Blood Pressure Pulse Oximetry 09/25/18 00:00 09/25/18 01:41 09/25/18 02:11 Temperature 98.5 F Pulse Rate 107 H Respiratory Rate 19 18 18 Blood Pressure 124/68 Pulse Oximetry 97 09/25/18 03:43 09/25/18 06:03 09/25/18 08:00 Temperature 97.8 F Pulse Rate 84 Respiratory Rate 16 18 17 Blood Pressure 91/49 L Pulse Oximetry 95 09/25/18 12:00 09/25/18 13:17 09/25/18 14:43 Temperature 97.8 F Pulse Rate 83 Respiratory Rate 16 10 L 16 Blood Pressure 153/67 H Pulse Oximetry 95 09/25/18 15:15 Temperature Pulse Rate Respiratory Rate 16 Blood Pressure Pulse Oximetry Intake & Output 09/24/18 09/25/18 09/25/18 18:59 06:59 18:59 Intake Total 2180 / 2180 970 / 970 250 / 250 Balance 2180 / 2180 970 / 970 250 / 250 Weight 59.7 kg Intake: IV 500 / 500 250 / 250 250 / 250 Vancomycin Inj 1,000 MG In NS 500 / 500 250 / 250 250 / 250 Inj 250 ML @ 250 mls/hr IV.SIG Q8H EMELIA Rx#:[id number] Oral 1680 / 1680 720 / 720 Other: # Voids 4 2 Date of Last Bowel Movement 09/23/18 Narrative: GENERAL: SKIN: right lateral buttock large indurated erythematous area with tunneling wound. HEAD: Normocephalic. EYES: No scleral icterus. No injection or drainage. NECK: Supple, trachea midline. No JVD or lymphadenopathy. CARDIOVASCULAR: RESPIRATORY: No accessory muscle use. GASTROINTESTINAL: Abdomen non distended. MUSCULOSKELETAL: No cyanosis, or edema. BACK: Nontender without obvious deformity. No CVA tenderness. Results - Labs 09/25/18 06:51 09/25/18 06:51 Laboratory Results - last 24 hr 09/24/18 09/24/18 09/25/18 17:15 21:28 06:06 WBC RBC Hgb Hct MCV MCH MCHC RDW Plt Count MPV Neut % (Auto) Lymph % (Auto) [place] % (Auto) Eos % (Auto) Baso % (Auto) Neut # (Auto) Lymph # (Auto) [place] # (Auto) Eos # (Auto) Baso # (Auto) WBC Differential Differential Comment Sodium Potassium Chloride Carbon Dioxide Anion Gap BUN Creatinine Estimated GFR POC Glucose 135 H 176 H 229 H Random Glucose Calcium 09/25/18 09/25/18 09/25/18 06:51 06:51 08:37 WBC 5.7 RBC 4.10 L Hgb 12.9 L Hct 37.3 L MCV 90.9 MCH 31.4 MCHC 34.5 RDW 12.5 Plt Count 368 MPV 6.9 L Neut % (Auto) 42.3 Lymph % (Auto) 45.7 H [place] % (Auto) 6.4 Eos % (Auto) 4.8 H Baso % (Auto) 0.8 Neut # (Auto) 2.4 Lymph # (Auto) 2.6 [place] # (Auto) 0.4 Eos # (Auto) 0.3 Baso # (Auto) 0.0 WBC Differential . Differential Comment Auto diff final Sodium 138 Potassium 3.6 Chloride 103 Carbon Dioxide 27.7 Anion Gap 7 BUN 9 Creatinine 0.76 Estimated GFR Greater than 89 POC Glucose 196 H Random Glucose 243 H Calcium 8.7 09/25/18 12:47 WBC RBC Hgb Hct MCV MCH MCHC RDW Plt Count MPV Neut % (Auto) Lymph % (Auto) [place] % (Auto) Eos % (Auto) Baso % (Auto) Neut # (Auto) Lymph # (Auto) [place] # (Auto) Eos # (Auto) Baso # (Auto) WBC Differential Differential Comment Sodium Potassium Chloride Carbon Dioxide Anion Gap BUN Creatinine Estimated GFR POC Glucose 280 H Random Glucose Calcium - Imaging Imaging: ITS Impressions Pelvis CT 09/19/18 09:08 CONCLUSION: 1. Subcutaneous fat induration and inflammation in the right gluteal region with developing subcutaneous fluid collections characteristic of developing abscess. 2. No evidence of deep pelvic involvement. Soft Tissue Ultrasound 09/24/18 00:00 CONCLUSION: There is a small amount of complex fluid in the right gluteal region in the subcutaneous fat with measurements given above. However, no well-defined easily drainable abscess is seen. Assessment and Plan - Plan Continue packing and dressing changes Likely fluid collection on ultrasound r/t dressing technique Continue ABX per ID Ambulate ad ryan. Code Status: full Discussed Condition With: patient
--- NOTE | 2018-09-25 18:02 | P.PNID ---
Subjective Remarks: no fever cont to c/o pain He cant wait bear on RLE and ambulates with a walker Antibiotics: vanco Allergies/Adverse Reactions: Allergies cefaclor [From Ceclor] Allergy (Severe, Verified 09/19/18 13:35) Hives Objective Vital Signs 09/24/18 19:44 09/24/18 20:00 09/24/18 21:27 Temperature 97.1 F L Pulse Rate 102 H Respiratory Rate 17 18 18 Blood Pressure 131/60 Pulse Oximetry 97 09/24/18 21:57 09/24/18 23:45 09/25/18 00:00 Temperature 98.5 F Pulse Rate 107 H Respiratory Rate 18 18 19 Blood Pressure 124/68 Pulse Oximetry 97 09/25/18 01:41 09/25/18 02:11 09/25/18 03:43 Temperature Pulse Rate Respiratory Rate 18 18 16 Blood Pressure Pulse Oximetry 09/25/18 06:03 09/25/18 08:00 09/25/18 12:00 Temperature 97.8 F 97.8 F Pulse Rate 84 83 Respiratory Rate 18 17 16 Blood Pressure 91/49 L 153/67 H Pulse Oximetry 95 95 09/25/18 13:17 09/25/18 14:43 09/25/18 15:15 Temperature Pulse Rate Respiratory Rate 10 L 16 16 Blood Pressure Pulse Oximetry 09/25/18 16:00 Temperature 98.1 F Pulse Rate 105 H Respiratory Rate 19 Blood Pressure 127/71 Pulse Oximetry 98 Intake & Output 09/24/18 09/25/18 09/25/18 18:59 06:59 18:59 Intake Total 2180 / 2180 970 / 970 250 / 250 Balance 2180 / 2180 970 / 970 250 / 250 Weight 59.7 kg Intake: IV 500 / 500 250 / 250 250 / 250 Vancomycin Inj 1,000 MG In NS 500 / 500 250 / 250 250 / 250 Inj 250 ML @ 250 mls/hr IV.SIG Q8H EMELIA Rx#:[id number] Oral 1680 / 1680 720 / 720 Other: # Voids 4 2 Date of Last Bowel Movement 09/23/18 09/21/18 15:50 Fluid - Other Acid Fast Bacilli Smear - Final No acid fast bacilli seen 09/21/18 15:50 Fluid - Other Mycobacterial Culture - Pending 09/19/18 09:41 Blood - Peripheral Aerobic Blood Culture - Final No growth in 5 days 09/19/18 09:41 Blood - Peripheral Anaerobic Blood Culture - Final No growth in 5 days 09/21/18 15:50 Fluid - Other Gram Stain - Final 09/21/18 15:50 Fluid - Other Wound Culture - Final S. aureus MRSA Lab - Hematology Results 09/25/18 06:51 WBC 5.7 RBC 4.10 L Hgb 12.9 L Hct 37.3 L MCV 90.9 MCH 31.4 MCHC 34.5 RDW 12.5 Plt Count 368 MPV 6.9 L Neut % (Auto) 42.3 Lymph % (Auto) 45.7 H Anson % (Auto) 6.4 Eos % (Auto) 4.8 H Baso % (Auto) 0.8 Neut # (Auto) 2.4 Lymph # (Auto) 2.6 Anson # (Auto) 0.4 Eos # (Auto) 0.3 Baso # (Auto) 0.0 WBC Differential . Differential Comment Auto diff final Lab - Chemistry Results 09/23/18 09/23/18 09/24/18 17:40 22:35 06:00 Sodium Potassium Chloride Carbon Dioxide Anion Gap BUN Creatinine Estimated GFR POC Glucose 116 H 317 H 149 H Random Glucose Calcium 09/24/18 09/24/18 09/24/18 06:53 11:49 17:15 Sodium Potassium Chloride Carbon Dioxide Anion Gap BUN Creatinine 0.71 Estimated GFR Greater than 89 POC Glucose 287 H 135 H Random Glucose Calcium 09/24/18 09/25/18 09/25/18 21:28 06:06 06:51 Sodium 138 Potassium 3.6 Chloride 103 Carbon Dioxide 27.7 Anion Gap 7 BUN 9 Creatinine 0.76 Estimated GFR Greater than 89 POC Glucose 176 H 229 H Random Glucose 243 H Calcium 8.7 09/25/18 09/25/18 09/25/18 08:37 12:47 16:41 Sodium Potassium Chloride Carbon Dioxide Anion Gap BUN Creatinine Estimated GFR POC Glucose 196 H 280 H 84 Random Glucose Calcium Imaging: ITS Impressions Pelvis CT 09/19/18 09:08 CONCLUSION: 1. Subcutaneous fat induration and inflammation in the right gluteal region with developing subcutaneous fluid collections characteristic of developing abscess. 2. No evidence of deep pelvic involvement. Soft Tissue Ultrasound 09/24/18 00:00 CONCLUSION: There is a small amount of complex fluid in the right gluteal region in the subcutaneous fat with measurements given above. However, no well-defined easily drainable abscess is seen. Physical Exam: GENERAL: NAD SKIN: Warm and dry. no rash RESPIRATORY: Breathing unlaboured MUSCULOSKELETAL: Extremities without clubbing, cyanosis, or edema. R buttock: packing in place, some purulence noted on the packing. THere is more induration spreading medially and the area is non fluctuant and exquisetely tender to palpation NEUROLOGICAL: Awake and alert. Non focal PSYCHIATRIC: Appropriate mood and affect; Assessment and Plan - Plan R buttock abscess, MRSA S clinda - worsening pain ? more abscesses gen surgery ff, no need for additional drainage aw insulin injections Bacteremia, coag negative staph - doubb t clin significance IDDM dw Dr Garcia
[2018-09-25] MEDS: clonazePAM 1 MG Tablet PO PRN (18:28)
[2018-09-26] MEDS: Vancomycin Inj 1,000 MG in Sodium Chlor 0.9% Inj 250 ML IV.SIG SCH ×3 (00:56→17:00)
[2018-09-26 07:10] LABS: Glomerular Filtration Rate Greater Than 89 mL/min (>89)
[2018-09-26] MEDS: Gabapentin 400 MG Capsule PO SCH ×3 (08:07→17:40)
[2018-09-26] MEDS: Insulin Detemir Inj 1,000 UNIT/10 ML Vial SQ SCH (08:09)
[2018-09-26] MEDS: Insulin NovoLOG Aspart Correctional Sugar Inj SQ SCH ×4 (08:09→21:38)
[2018-09-26] MEDS: Senna/Docusate Sodium 8.6/50 MG Tablet PO SCH ×2 (08:10→21:37)
[2018-09-26] MEDS: HYDROmorphone PF Inj 0.5 MG/0.5 ML Syringe IV.PUSH PRN ×2 (10:37→23:43)
[2018-09-26] MEDS ORDERED: HYDROmorphone PF Inj 2 MG/ML Vial IV.PUSH PRN (14:00)
--- NOTE | 2018-09-26 14:35 | P.PNIM ---
Subjective Interval history: Right buttock less painful today. Pt easily ambulating in the hallways without walker. drowsiness from 09/25 appears resolved Physical Exam Vital signs: Last Vital Signs Temp 98.4 F 09/26/18 12:00 Pulse 106 H 09/26/18 12:00 Resp 18 09/26/18 08:07 BP 123/63 09/26/18 12:00 Pulse Ox 97 09/26/18 12:00 Narrative: General: NAD, AAOx3 SKIN: right buttock without erythema. Induration appears to be slowly improving. small amount of drainage noted at surgical packing. Less tender with palpation. Chest: CTA Cardiac: Regular Abd: +BS, soft ND/NT Ext: No edema Results Labs CBC & Chem 7: 09/25/18 06:51 09/26/18 05:43 Assessment and Plan Assessment (1) Abscess of buttock, right: Code(s): L02.31 - Cutaneous abscess of buttock Status: Acute (2) DKA, type 1: Code(s): E10.10 - Type 1 diabetes mellitus with ketoacidosis without coma Status: Chronic Plan Right buttock abscess - Pt is a 23 yo male with IDDM and hx of drug abuse. - [place] [facility] [place] after he developed pain, redness , and swelling in the right buttock which is reportedly related to his insulin injection site. He had associated fever, chills and high BS. - Pelvis CT (09/19/18): 1. Subcutaneous fat induration and inflammation in the right gluteal region with developing subcutaneous fluid collections characteristic of developing abscess. 2. No evidence of deep pelvic involvement. - Vancomycin (09/20 - present) - Zosyn (09/19 - 09/22) - Blood clx (09/19/18) with 2/4 bottles for Staphylococcus epidermis, staph coagulase negative. 2/4 bottles no growth at 3 days - Fluid culture (09/21/18) MRSA await sensitivity - DANIEL (09/21/18): - Normal left ventricular size and wall thickness. - The left ventricular systolic function is normal with an estimated ejection fraction in the range of 60-65%. - Left ventricular diastolic function parameters are normal. - No vegetations - Pt underwent I&D of right buttock abscess on 09/21/[address] Barone - Pt examined at the bedside together with Infectious Disease, Dr. Pacheco, (09/24/18). - Pt with increased pain and induration at right buttock 09/24/18 - Soft tissue US (09/24/18) There is a small amount of complex fluid in the right gluteal region in the subcutaneous fat. However, no well-defined easily drainable abscess is seen - Case d/w Dr. Barone 09/24/18. No need for further surgical intervention at this time. Continue daily dressing change with packing - Wound care/daily dressing changes per general surgery: Daily dressing changes. stating 09/22/18. Remove old dressing and packing. Then pack wound with 0.5 inch iodoform packing covered with 4x4 dressing. - drosiness improved with decrease of clonazemam to 1mg TID. - prn dilaudid will end 09/27/17 and then dilaudid prn only for dressing changes. - anticipate d/c to home 09/28/18 for dressing change. I did explain when specifically asked by pt's father that C would most likely train family to change dressing and exchange packing. (09/26/18). - HHC for dressing changes. This was d/w pt/father at the bedside (09/26/18) - will change vancomycin to PO clindamycin upon discharge. - supportive care. IDDM - NovoLog SSI - Levemir 32 units daily Progress Note: Quality VTE Deep Vein Thrombosis/Pulmonary Embolism Present on Admission: No _ (1) DKA, type 1 Qualifiers: Diabetes mellitus complication detail:
--- NOTE | 2018-09-26 14:44 | P.CONPSY ---
Provisional Diagnosis Admission Date: September 19, 2018 12:07 [place] I.: Schizoaffective disorder by history, history of opiate and cocaine abuse History of Present Illness Service: Psychiatry Consult date: 09/26/18 Requesting Physician: Yudelka Pinzon Reason for Consult: Assessment Primary Care Provider: Frank Matthews MD Chief Complaint: painful lump rt prlvic area site of insulin injections History of Present Illness: Patient 23-year-old white male diabetic who comes here for treatment of a abscess of the right buttocks perineal area. It appears she does have a history of mental health issues stating he may be schizoaffective. He states he moved him here from [place] [facility] area a little over a year ago and had been prescribed 2 mg Klonopin 3 times daily gabapentin and Seroquel. Patient acknowledges past psychiatric hospitalization in [place] though there is no record of this in the EMR. However patient was hospitalized in August 2018 for overdose of drugs including heroin and cocaine. Today patient minimizes his substance use as he only uses his prescription drugs that he briefly Ms. Chaves opiates but none recently. He states he has been at [facility] in the past did not like it there he vaguely alluded to some type of a contact also with the detox side. He states he lives with his mother and father they have a good relationship. In some ways he appears to be intellectualizing rationalizing his disease as an excuse for his behaviors. Over this time staff is stating he has been cooperative with his treatment for his abscesses. I discussed this with the [place] healthcare staff they feel up physician's certificate might be appropriate once this man is medically cleared from his abscess. I concur with this I would recommend that a physician's certificate be filled out with the [facility] so the patient can be transferred to [facility] for further care and assessment related to his substance abuse and misuse thanks's consult I will sign off the present time Review of Systems All other systems reviewed negative except as stated in HPI PMFSH - History History Provided By: Patient, Medical Record - Medical History Medical History: Medical History (Last Reviewed 09/26/18 @ 14:48 by Silver Martinez MD) Anxiety History of MRSA infection Onset Date: ~09/21/18 Psychiatric disorder Diabetes Surgical history unknown - Surgical History Surgical History: Surgical History (Last Reviewed 01/05/19 @ 14:48 by Silver Martinez MD) No history of previous surgery - Family History Family History: Family History (Last Reviewed 09/26/18 @ 14:48 by Silver Martinez MD) Other No pertinent family history - Social History I have reviewed the patient's Social History: Yes - Tobacco History Second Hand Smoke Exposure: No Tobacco Use In Past 30 Days: Yes Smoking Status: Never smoker Tobacco Type: Cigarettes - Alcohol History How Often Do You Have a Drink Containing Alcohol: Never - Substance Use History Substance History: No History of Abuse - Travel History Recent Travel in the [place] Within the Last 8 Weeks: No Recent Travel Out of the Country Within the Last 8 Weeks: No - Immunization History Tetanus Immunization: Unsure Hx Influenza Vaccine This Season: Yes Medications and Allergies Active Medications: Active Medications Acetaminophen (Tylenol) 650 mg PO Q4H PRN PRN Reason: Temp > 100.4 Hydrocodone Bitart/Acetaminophen ([place] 10/325) 1 tab PO Q4H PRN PRN Reason: pain 1-10, Last Admin: 09/26/18 13:23 Dose: 1 tab Clonazepam (Klonopin) 1 mg PO TID PRN PRN Reason: AGITATION Last Admin: 09/25/18 18:28 Dose: 1 mg Dextrose (D50w Vial) 50 ml IV.PUSH UNSCH PRN PRN Reason: PER HYPOGLYCEMIA PROTOCOL Gabapentin (Neurontin) 800 mg PO TID [facility] Last Admin: 09/26/18 13:23 Dose: 800 mg Glucagon (Glucagon Inj) 1 mg OTHER PRN PRN PRN Reason: for Hypoglycemia Protocol Hydromorphone HCl (Dilaudid Pf Inj) 0.5 mg IV.PUSH Q8HR PRN PRN Reason: BREAKTHROUGH PAIN Stop: 09/27/18 14:59 Last Admin: 09/26/18 10:37 Dose: 0.5 mg Hydromorphone HCl (Dilaudid Pf Inj) 1 mg IV.PUSH DAILY PRN PRN Reason: BREAKTHROUGH PAIN Last Admin: 09/26/18 14:27 Dose: 1 mg Vancomycin HCl 1,000 mg/ (Sodium Chloride) 250 mls @ 250 mls/hr IV.SIG Q8H [facility] Last Infusion: 09/26/18 09:10 Dose: Infused Insulin Aspart (Novolog Insulin Correctional Sugar Inj) 0 unit SQ ACHS [facility]; Protocol Last Admin: 09/26/18 11:37 Dose: Not Given Insulin Detemir (Levemir Inj) 32 unit SQ DAILY [facility] Last Admin: 09/26/18 08:09 Dose: 32 unit Nicotine (Habitrol 14 Mg Patch.24 Hr) 1 patch T-DERMAL DAILY [facility] Last Admin: 09/26/18 08:08 Dose: 1 patch Ondansetron HCl (Zofran Inj) 4 mg IV.PUSH Q6H PRN PRN Reason: NAUSEA OR VOMITING Patch Removal (Remove Old Patch) 0 each T-DERMAL HS [facility] Last Admin: 09/25/18 21:39 Dose: Not Given Pharmacy Profile Note (Vancomycin Consult Pharmacy) 1 each OTHER UNSCH PRN PRN Reason: Pharmacy to dose Senna/Docusate Sodium (Michelle-Colace) 1 tab PO BID [facility] Last Admin: 09/26/18 08:10 Dose: Not Given Sodium Chloride (Ns Flush) 2 ml IV.FLUSH PRN PRN PRN Reason: FLUSH AFTER USING IV ACCESS Last Admin: 09/24/18 17:22 Dose: 2 ml Sodium Chloride (Ns Flush) 2 ml IV.FLUSH BID [facility] Last Admin: 09/26/18 08:10 Dose: 2 ml Allergies Allergy/AdvReac Type Severity Reaction Status Date / Time cefaclor [From [facility]] Allergy Severe Hives Verified 09/19/18 13:35 Home Medications Medication Instructions Recorded Confirmed Type clonazepam [Klonopin] 2 mg PO TID 08/27/18 09/19/18 History gabapentin 800 mg PO TID 08/27/18 09/19/18 History insulin aspart U-100 [Novolog 1 - 12 unit SUBCUT DIRECTED 08/27/18 09/22/18 History U-100 Insulin aspart] insulin glargine [Lantus U-100 32 unit SUBCUT DAILY 08/27/18 09/19/18 History Insulin] quetiapine [Seroquel XR] 300 mg PO QPM 09/22/18 09/22/18 History Exam Vital signs: Vital Signs 09/25/18 14:43 09/25/18 15:15 09/25/18 16:00 Temperature 98.1 F Pulse Rate 105 H Respiratory Rate 16 16 19 Blood Pressure 127/71 Pulse Oximetry 98 09/25/18 17:00 09/25/18 18:27 09/25/18 20:00 Temperature 97.5 F L Pulse Rate 89 Respiratory Rate 16 16 20 Blood Pressure 121/65 Pulse Oximetry 96 09/26/18 00:00 09/26/18 08:00 09/26/18 08:07 Temperature 97.3 F L 97.2 F L Pulse Rate 78 64 Respiratory Rate 18 18 18 Blood Pressure 119/56 L 188/80 H Pulse Oximetry 98 98 09/26/18 12:00 Temperature 98.4 F Pulse Rate 106 H Respiratory Rate Blood Pressure 123/63 Pulse Oximetry 97 Intake & Output 09/25/18 09/26/18 09/26/18 18:59 06:59 18:59 Intake Total 500 / 500 490 / 490 670 / 670 Output Total 400 / 400 Balance 500 / 500 490 / 490 270 / 270 Weight 60.2 kg Intake: IV 500 / 500 250 / 250 250 / 250 Vancomycin Inj 1,000 MG In NS 500 / 500 250 / 250 250 / 250 Inj 250 ML @ 250 mls/hr IV.SIG Q8H EMELIA Rx#:[id number] Oral 240 / 240 420 / 420 Output: Urine 400 / 400 Other: # Voids 2 Date of Last Bowel Movement 09/25/18 Narrative: Patient laying quietly on his his bed staff treating his abscesses while I spoke with the patient he is in no acute distress he is in no respiratory distress no complaints of abdominal pain or chest pain. Patient is moving all 4 extremities without difficulty while laying in bed Mental Status Examination Appearance: Appropriate Consciousness: Alert Orientation: x4 Motor Activity: Normal gait Speech: Unremarkable Language: Adequate Fund of Knowledge: Adequate Attention and Concentration: Adequate Memory: Unremarkable Mood: Other (Euthymic) Affect: Other (Good range and intensity) Thought Process & Associations: Intact Thought Content: Appropriate Hallucination Type: None Delusion Type: None Suicidal Ideation: No Suicidal Plan: No Suicidal Intention: No Homicidal Ideation: No Homicidal Plan: No Homicidal Intention: No Insight: Fair Judgment: Adequate (Poor) Assessment and Plan - Plan Plan: Estimated LOS: [] days At this time I feel initiating a physician's certificate under a [place] act would be appropriate upon discharge the patient will receive further assessment related to his misuse of substances as evidenced by his overdose of heroin and cocaine in August of this year. He is quite vague and minimizing of his substance use at this time also. Otherwise I would not recommend any specific medication at this time he can also perhaps refer him back to his psychiatric practitioner in the community Justification for Continued Inpatient Stay: Patient continues to need treatment for his abscess Discharge Planning: Would recommend possibly filling out a physician's certificate through the [place] act Request Healthcare Surrogate/Guardian Advocate?: No
[2018-09-26] MEDS: clonazePAM 1 MG Tablet PO PRN (15:48)
[2018-09-27] MEDS: Vancomycin Inj 1,000 MG in Sodium Chlor 0.9% Inj 250 ML IV.SIG SCH ×2 (01:45→09:54)
[2018-09-27] MEDS: Insulin NovoLOG Aspart Correctional Sugar Inj SQ SCH ×4 (09:52→20:33)
[2018-09-27] MEDS: Gabapentin 400 MG Capsule PO SCH ×3 (09:53→17:41)
[2018-09-27] MEDS: Insulin Detemir Inj 1,000 UNIT/10 ML Vial SQ SCH (09:53)
[2018-09-27] MEDS: Senna/Docusate Sodium 8.6/50 MG Tablet PO SCH ×2 (09:58→20:34)
[2018-09-27] MEDS: clonazePAM 1 MG Tablet PO PRN ×2 (11:47→19:53)
[2018-09-27] MEDS: HYDROmorphone PF Inj 0.5 MG/0.5 ML Syringe IV.PUSH PRN (13:09)
--- NOTE | 2018-09-27 17:23 | P.DS ---
DS: Providers Date of admission: 09/19/18 12:07 Primary care physician: Frank Matthews MD Consults: 09/24/18 17:06 HUB Only Consult Order Routine Consulting Provider: Edmund Paula 09/25/18 14:27 Consult to Psychiatry Routine Consulting Provider: Silver Martinez Reason for Consultation: Please evaluate patient for possible physician certification to place patient in [facility] at time of DC Notified:: Service Spoke with:: SHIRA Date Notified:: 09/25/18 Time Notified:: 14:37 Ordering Provider: GENNA 09/20/18 10:40 Consult to Infectious Diseases Routine Consulting Provider: Zehra Pacheco Reason for Consultation: FHCP-ID leukocytosis with cellulitis vs abscess rt buttocks Notified:: Service Spoke with:: ELLIS Date Notified:: 09/20/18 Time Notified:: 10:46 Ordering Provider: CLAIRE 09/21/18 09:44 Consult to Cardiology Routine Consulting Provider: Laith Gustafson Does the patient have a Associate Professor Of Criminal Justice who follows them?: No Preferred Hydrochloric Acid Operator:: Laith Gustafson Reason for Consultation: FHCP cardiology abscess buttocks elevation WBC count abscess in DM from dirty needle stick sympotms about 2 weeks ? endocarditis consider DANIEL Notified:: Office Spoke with:: [place] Date Notified:: 09/21/18 Time Notified:: 10:56 Ordering Provider: CLAIRE 09/21/18 12:13 Consult to General Surgery Routine Consulting Provider: Minor Marley Preferred Marketing Finance Specialist:: Omar Penny Reason for Consultation: R buttock abscess with sepsis. Diabettic pt Notified:: Service Spoke with:: EZEQUIEL Date Notified:: 09/21/18 Time Notified:: 12:55 Ordering Provider: ARELI DS: Summary Right buttock abscess - Pt is a 23 yo male with IDDM and hx of drug abuse. - [place] [facility] [place] after he developed pain, redness , and swelling in the right buttock which is reportedly related to his insulin injection site. He had associated fever, chills and high BS. - Pelvis CT (09/19/18): 1. Subcutaneous fat induration and inflammation in the right gluteal region with developing subcutaneous fluid collections characteristic of developing abscess. 2. No evidence of deep pelvic involvement. - Vancomycin (09/20 - present) - Zosyn (09/19 - 09/22) - Blood clx (09/19/18) with 2/4 bottles for Staphylococcus epidermis, staph coagulase negative. 2/4 bottles no growth at 3 days - Fluid culture (09/21/18) MRSA await sensitivity - DANIEL (09/21/18): - Normal left ventricular size and wall thickness. - The left ventricular systolic function is normal with an estimated ejection fraction in the range of 60-65%. - Left ventricular diastolic function parameters are normal. - No vegetations - Pt underwent I&D of right buttock abscess on 09/21/[address] Barone - Pt examined at the bedside together with Infectious Disease, Dr. Pacheco, (09/24/18). - Pt with increased pain and induration at right buttock 09/24/18 - Soft tissue US (09/24/18): There is a small amount of complex fluid in the right gluteal region in the subcutaneous fat. However, no well-defined easily drainable abscess is seen - Case d/w Dr. Barone 09/24/18. No need for further surgical intervention at this time. Continue daily dressing change with packing - Wound care/daily dressing changes per general surgery: Daily dressing changes. stating 09/22/18. Remove old dressing and packing. Then pack wound with 0.5 inch iodoform packing covered with 4x4 dressing. - drosiness improved with decrease of clonazemam to 1mg TID. - prn dilaudid will end 09/27/17 and then dilaudid prn only for dressing changes. - anticipate d/c to home 09/28/18 with HHC to assist with dressing change. Dr. Garcia did explain when specifically asked by pt's father that HHC would most likely train family to change dressing and exchange packing. (09/26/18). - HHC for dressing changes. This was d/w pt/father at the bedside (09/26/18) - will change vancomycin to PO clindamycin upon discharge. - supportive care. IDDM - NovoLog SSI - Levemir 32 units daily - blood glucose labile likely related to dietary intake will continue current regiment - discussed with patient the importance of sticking to a consistent diabetic diet Time Spent with Patient Total time spent providing and/or coordinating discharge services: Quality: VTE Deep Vein Thrombosis/Pulmonary Embolism Present on Admission: No Exam Narrative Exam Narrative: General: NAD, AAOx3 SKIN: right buttock without erythema. Induration appears to be improving. Less tender with palpation. Chest: CTA Cardiac: Regular Abd: +BS, soft ND/NT Ext: No edema Results Labs on day of discharge: Labs from last 24 hours 09/27/18 09/27/18 09/27/18 16:52 11:46 07:56 POC Glucose 181 H 139 H 347 H 09/26/18 20:48 POC Glucose 140 H Impressions ITS Impressions Pelvis CT 09/19/18 09:08 CONCLUSION: 1. Subcutaneous fat induration and inflammation in the right gluteal region with developing subcutaneous fluid collections characteristic of developing abscess. 2. No evidence of deep pelvic involvement. Soft Tissue Ultrasound 09/24/18 00:00 CONCLUSION: There is a small amount of complex fluid in the right gluteal region in the subcutaneous fat with measurements given above. However, no well-defined easily drainable abscess is seen. Discharge Plan Discharge Disposition Patient Disposition: W/Home Health Service Discharge Condition Condition: Stable Discharge Order Discharge Orders: Discharge Order (Routine); Ordered 09/28/18 Ordered By: Yudelka Pinzon Discharge Details Anticipated Discharge Date: 09/28/18 Discharge Comment: Please DC 09/28/18 AM after dressing change Physicians Team ED Provider: Og Benavidez Primary Care Provider: Frank Matthews Attending Provider: Alex Garcia Other Providers: Zehra Pacheco ; Laith Gustafson ; Minor Marley ; [facility] ; Silver Martinez Rxs /Orders / Referrals /Forms Prescriptions: New clindamycin HCl 300 mg capsule 300 mg PO Q6H 10 Days Qty: 40 RF: 0 hydrocodone-acetaminophen [[place]] 7.5-325 mg tablet 1 tab PO Q6H PRN (Reason: pain) Qty: 10 RF: 0 Continue insulin glargine [Lantus U-100 Insulin] 100 unit/mL Solution 32 unit SUBCUT DAILY RF: 0 gabapentin 800 mg Tablet 800 mg PO TID RF: 0 insulin aspart U-100 [Novolog U-100 Insulin aspart] 100 unit/mL Solution 1 - 12 unit SUBCUT DIRECTED RF: 0 clonazepam [Klonopin] 2 mg Tablet 2 mg PO TID RF: 0 Referrals: Frank Matthews MD [Primary Care Provider] - See Instructions (follow up in 1 week) Minor Marley MD [Physician] - See Instructions (follow up in 2 weeks) Discharge Instructions Patient Printed Instructions: Clindamycin (By mouth), MRSA (Methicillin- Resistant Staphylococcus Aureus) (DC), Incision and Drainage (DC) Additional Instructions: Pack wound daily with 0.5 inch iodoform gauze. Cover with gauze and tape. Keep clean and dry. Status ED Status: Left Department
[2018-09-27] MEDS ORDERED: HYDROmorphone PF Inj 2 MG/ML Vial IV.PUSH PRN (17:33)
[2018-09-28 00:09] VITALS: RESP 17
[2018-09-28 07:15] LABS: Glomerular Filtration Rate Greater Than 89 mL/min (>89)
[2018-09-28] MEDS: Gabapentin 400 MG Capsule PO SCH (08:10)
[2018-09-28] MEDS: Senna/Docusate Sodium 8.6/50 MG Tablet PO SCH (08:10)
[2018-09-28] MEDS: clonazePAM 1 MG Tablet PO PRN (08:10)
[2018-09-28] MEDS: Insulin NovoLOG Aspart Correctional Sugar Inj SQ SCH (08:11)
[2018-09-28] MEDS: Insulin Detemir Inj 1,000 UNIT/10 ML Vial SQ SCH (08:11)
[2018-09-28 08:54] VITALS: BP 124/68; PULSE 83; TEMP 97.6; O2SAT 95
== END 2018-09-28 09:30 | disposition home health service (06) | DRG 867 ==
LOC: PHED 08:33 → PHEDA 12:07 → PH3 12:24 → N07 09-21 09:52
PROVIDERS: ADMIT Hospitalist; ATTEND Hospitalist
DX: Z79.4 Long term (current) use of insulin; T80.29XA Infection following other infusion, transfusion and therapeutic injection, initial encounter; F17.210 Nicotine dependence, cigarettes, uncomplicated; B95.62 Methicillin resistant Staphylococcus aureus infection as the cause of diseases classified elsewhere; F41.9 Anxiety disorder, unspecified; A41.9 Sepsis, unspecified organism; E10.10 Type 1 diabetes mellitus with ketoacidosis without coma; L03.317 Cellulitis of buttock; Z91.5 Personal history of self-harm; L02.31 Cutaneous abscess of buttock
CPT/HCPCS: 72193; 76937; 76999; 80048; 80202; 82565; 82948; 82962; 85025; 86403; 87015; 87040; 87070; 87077; 87116; 87186; 87205; 87206; 93312; 93320; 93325; 99285; J1170; J1815; J2250; J2270; J2543; J3010; J3370; J7050; Q9967